=== PATIENT | male | born 1975 | race Caucasian/White ===

== ENCOUNTER 2017-10-08 18:41 | Emergency (ER) | payer OTHER, SELFPAY ==
[2017-10-08 18:41] VITALS: BP 131/70; PULSE 88; RESP 18; TEMP 36.7; O2SAT 97; BMI 42.8
--- NOTE | 2017-10-08 19:05 | CT_ITS ---
STUDY: CT ABDOMEN AND PELVIS WITH CONTRAST REASON FOR EXAM: Male, 42 years old. Right flank pain and partial right nephrectomy for cancer RADIATION DOSAGE (If Supplied By Facility): CTDIvol = ( 20.40 ) mGy, DLP = ( 1372.03 ) mGycm TECHNIQUE: Transaxial images were obtained from the dome of the diaphragm to the symphysis pubis without oral contrast. 100ML ml of Isovue 300 contrast was administered. Sagittal and coronal images were reconstructed. Individualized dose optimization techniques were used for this CT. COMPARISON: January 07, 2017 FINDINGS: The visualized lung bases are unremarkable. The visualized portions of the heart are within normal limits. Normal liver. Normal gallbladder and extrahepatic biliary system. Normal spleen. Normal pancreas. Normal bilateral adrenal glands. Normal right kidney. Normal left kidney. Normal visualized stomach. Normal small intestine. There appears to be stranding of the pericolonic fat near the hepatic flexure. The appendix is visualized and appears normal. Normal abdominal aorta. Normal inferior vena cava. Normal retroperitoneum. Normal urinary bladder. There is a small umbilical hernia containing fat. Normal osseous structures. CT/Abdomen/Pelvis W IV Cont ONLY IMPRESSION: Possible segmental nonspecific acute colitis hepatic flexure Electronically Signed: Johnathon Bright MD at 20:26 EDT , Service support ,
[2017-10-08 19:19] LABS: Bacteria 0 SEEN /hpf (None Seen); Mucous, Urine 0 SEEN /hpf (<or=2+); Red Blood Cells-Urine 0 SEEN /hpf (0-5)
[2017-10-08] MEDS: Ondansetron 4 MG/2 ML Vial IV (19:21)
[2017-10-08] MEDS: Morphine 4 MG/ML Syringe IV (19:21)
[2017-10-08] MEDS: 0.9% Normal Saline 1,000 ML 1000 ML IV (19:21)
[2017-10-08 19:23] LABS: Absolute Lymphocyte Count 3.58 X10^3/ul (0.83-4.51); Absolute Neutrophil Count 6.3 X10^3/uL (2.0-7.7); Basophil# 0.05 X10^3/uL; Basophil% 0.4 % (0-1); Eosinophil# 0.53 X10^3/uL; Eosinophils% 4.7 % (0-5); Hematocrit 46.8 % (40-54); Hemoglobin 16.4 g/dl (13.0-16.5); Lymphocyte # 3.58 X10^3/ul (4.0); Lymphocyte % 31.7 % (19-41); Mean Corpuscular Hgb 31.9 pg (27.0-32.0); Mean Corpuscular Volume 91.1 fL (80-94); Mean Platelet Vol. 10.7 fl (6.2-12.0); Monocyte# 0.79 X10^3/uL; Neutrophil # 6.33 X10^3/uL (2.7-7.7); Neutrophil % 56.1 % (47-70); POSITIVE COUNT NO; POSITIVE DIFFERENTIAL NO; POSITIVE MORPHOLOGY NO; Platelet Count 206 K/mm3 (150-450); RBC Distribution Width CV 13.5 % (11.6-14.6); RBC Distribution Width SD 44.5 fl (35.1-43.9); Red Blood Count 5.14 M/mm3 (4.6-6.2); White Blood Count 11.3 K/mm3 (4.4-11.0)
[2017-10-08 19:26] LABS: Color, Urine Yellow (Yellow); Glucose, Dipstick Normal (Normal); Ketone-Dipstick Negative (Negative); Leukocyte Esterase-Dipstick 25 /ul (Negative); Nitrite-Dipstick Negative (Negative); Occult Blood-Urine 25 /ul (Negative); Protein-Dipstick Negative (Negative); Specific Gravity, Urine 1.025 (1.002-1.030); Urine Bilirubin Dipstick Negative (Negative); Urine Clarity Clear (Clear); Urine Urobilinogen 1 mg/dl (Normal)
[2017-10-08 19:43] LABS: Squamous Epithelial Cells - UA 0-5 SEEN /hpf (0-5); White Blood Cells 0-5 SEEN /hpf (0-5)
[2017-10-08 19:46] LABS: ALB/GLOB Ratio 0.8 RATIO (0.9-2.4); AST(SGOT) 21 U/L (15-37); Alanine Aminotransfer ALT/SGPT 37 U/L (16-61); Albumin, Serum 3.4 g/dL (3.2-5.0); Alkaline Phosphatase 73 U/L (45-117); Anion Gap 7 (5-15); BUN 10 mg/dL (7-18); BUN/Creat Ratio 10.9 RATIO (10-20); Calcium,Total 8.6 mg/dL (8.5-10.1); Chloride 105 mmol/L (98-107); Creatinine, Serum 0.92 mg/dL (0.70-1.30); EST Glomerular Filtration Rate 96 mL/min (>60); Est Glom Filt Rate - Afr Amer 116 mL/min (>60); Globulin 4.1 g/dL (2.2-4.2); Glucose 104 mg/dL (74-106); Potassium 4.2 mmol/L (3.5-5.1); Protein, Total 7.5 g/dL (6.4-8.2); Sodium Level 139 mmol/L (136-145)
--- NOTE | 2017-10-08 20:49 | ED.DCSUM_ITS ---
- ER Visit Summary Date of Service: 10/08/17 Chief Complaint: Flank pain History of Present Illness: The patient is a 42 M who presents with flank pain. It began yesterday. It is sharp in nature. He complains of pain in his kidney area. Pain is nonradiating. He currently rates it as 7 out of 10. He does have a history of renal cell carcinoma with partial nephrectomy on the right. He denies nausea vomiting or diarrhea. He does note urgency but denies dysuria or hematuria. No fevers. Physical Examination: Afebrile vitals are unremarkable Moist mucous membranes Heart regular rate and rhythm Lungs are clear Abdomen soft nontender nondistended He has mild right CVA tenderness Test Results: Labs notable for white blood cell count 11.[address] of the abdomen and pelvis shows stranding of the pericolonic fat near the hepatic flexure concerning for possible colitis. Emergency Department Course and Treatment: Patient does not have diarrhea or fever but he does have fat stranding in a region that could potentially explain his right flank tenderness. Will cover for possible infectious colitis. He does not currently have a primary care physician. He was referred to Dr. Ricardo. He was instructed on specific signs and symptoms to monitor for, conditions under which to return to the emergency department he was discharged home. Treatment Plan: [] Disposition: Discharge Impression: Hepatic flexure colitis This note was generated with [employer] dictation software. It may contain incorrect words, spelling, and punctuation that were not noted in review of the chart prior to signing ED Disposition - Plan for ED Patient: Chief Complaint: Flank Pain Referrals: Care Physician,No Primary [Primary Care Provider] -
--- NOTE | 2017-10-08 20:49 | ED.DEP ---
ED Disposition - Plan for ED Patient: Chief Complaint: Flank Pain Instructions: ED Flank Pain Uncertain Cause Prescriptions: Ciprofloxacin [Cipro] 500 mg PO BID #14 tab Referrals: Care Physician,No Primary [Primary Care Provider] - Ab Ricardo MD [STAFF PHYSICIAN] -
[2017-10-08 21:07] VITALS: BP 119/62; PULSE 70; RESP 16; O2SAT 98
== END 2017-10-08 21:12 | disposition home or self-care (01) ==
PROVIDERS: Emergency Provider Emergency Medicine
DX: K52.9 Noninfective gastroenteritis and colitis, unspecified (principal); J45.909 Unspecified asthma, uncomplicated; Z85.528 Personal history of other malignant neoplasm of kidney; Z90.5 Acquired absence of kidney; Z72.0 Tobacco use
CPT/HCPCS: 74177; 80053; 81001; 85025; 96361; 96374; 96375; 99283; J7030; Q9967; A4216; J2405

== ENCOUNTER 2017-10-26 22:55 | Emergency (ER) | payer OTHER, SELFPAY ==
[2017-10-26 22:57] VITALS: BP 147/78; PULSE 83; RESP 18; TEMP 36.4; O2SAT 97; BMI 43.3
[2017-10-26 23:24] LABS: Absolute Lymphocyte Count 2.96 X10^3/ul (0.83-4.51); Absolute Neutrophil Count 9.8 X10^3/uL (2.0-7.7); Basophil# 0.04 X10^3/uL; Basophil% 0.3 % (0-1); Eosinophil# 0.42 X10^3/uL; Hematocrit 47.8 % (40-54); Hemoglobin 17.3 g/dl (13.0-16.5); Lymphocyte # 2.96 X10^3/ul (4.0); Lymphocyte % 20.8 % (19-41); Mean Corp Hgb Conc 36.2 g/gl (32-36); Mean Corpuscular Volume 91.2 fL (80-94); Monocyte# 1.01 X10^3/uL; Monocyte% 7.1 % (0-10); Neutrophil # 9.78 X10^3/uL (2.7-7.7); Neutrophil % 68.7 % (47-70); Platelet Count 197 K/mm3 (150-450); RBC Distribution Width CV 13.6 % (11.6-14.6); RBC Distribution Width SD 44.9 fl (35.1-43.9); Red Blood Count 5.24 M/mm3 (4.6-6.2); White Blood Count 14.2 K/mm3 (4.4-11.0)
[2017-10-26 23:25] LABS: POSITIVE COUNT NO; POSITIVE DIFFERENTIAL NO; POSITIVE MORPHOLOGY NO
--- NOTE | 2017-10-26 23:26 | ED.DCSUM_ITS ---
- ER Visit Summary Date of Service: 10/26/17 Chief Complaint: Right flank pain History of Present Illness: The patient is a 42 M who presents with right flank pain of about 2-3 days duration. Patient states that he was seen earlier this month with similar symptoms was felt to have a colon infection was placed on antibiotics. (CT done at that time showed a possible focal area of colitis at the hepatic flexure) states that while he was on the antibiotics his symptoms proved. Now they have returned. He denies any diarrhea nausea vomiting. No fevers or chills. No rashes. No shortness of breath or cough. He denies any heavy lifting or potential strain or falls. He notes pain in the right CVA region. He states that in December 2015 he had a partial nephrectomy due to kidney cancer at [facility] [place] he is unsure of the urologist name. He denies any hematuria or urinary frequency or dysuria. Physical Examination: Afebrile vital signs are stable Gen: Well-nourished well-developed obese Head: Normocephalic atraumatic Eyes: Perrl EOMI ENT: TMs clear no rhinorrhea moist mucous membranes Neck: Supple no lymphadenopathy no JVD nontender CVS: Regular rate rhythm no murmurs normal S1-S2 Respiratory: No distress clear to auscultation bilaterally chest nontender Abdomen: Soft nontender nondistended normal bowel sounds no masses Back: Mildly tender palpation in the right CVA area Extremity: Nontender no edema Skin: Normal color no rash Neuro: alert orientated ?3 CN II-XII intact normal strength sensation reflexes gait cerebellar Psych: Normal affect normal mood Test Results: CBC CMP urinalysis lipase were obtained. This showed a leukocytosis of 14.5. CT of the abdomen pelvis with IV contrast was ordered. Emergency Department Course and Treatment: Patient received morphine and Zofran. Care the patient will be assigned to Dr. Dany Cabral for check of CT findings and final disposition. Impression: 1. Right flank pain This note was generated with [employer] dictation software. It may contain incorrect words, spelling, and punctuation that were not noted in review of the chart prior to signing ED Disposition - Plan for ED Patient: Chief Complaint: Flank Pain Referrals: Care Physician,No Primary [Primary Care Provider] -
[2017-10-26] MEDS: Ondansetron 4 MG/2 ML Vial IV (23:28)
[2017-10-26] MEDS: Morphine 4 MG/ML Syringe IV (23:28)
[2017-10-26 23:39] LABS: Bacteria 0 SEEN /hpf (None Seen); Mucous, Urine 0 SEEN /hpf (<or=2+); Red Blood Cells-Urine 0 SEEN /hpf (0-5); Squamous Epithelial Cells - UA 0 SEEN /hpf (0-5); White Blood Cells 0 SEEN /hpf (0-5)
[2017-10-26 23:59] LABS: Color, Urine Yellow (Yellow); Glucose, Dipstick Normal (Normal); Ketone-Dipstick Negative (Negative); Leukocyte Esterase-Dipstick Negative /ul (Negative); Nitrite-Dipstick Negative (Negative); Occult Blood-Urine 10 /ul (Negative); Protein-Dipstick Negative (Negative); Urine Bilirubin Dipstick Negative (Negative); Urine Clarity Clear (Clear); Urine Urobilinogen Normal (Normal); Urine pH 6.5 (5.0 - 8.0)
--- NOTE | 2017-10-27 00:19 | CT_ITS ---
STUDY: CT ABDOMEN AND PELVIS WITH CONTRAST REASON FOR EXAM: Male, 42 years old. Right flank pain RADIATION DOSAGE (If Supplied By Facility): CTDIvol = ( 27.05 ) mGy, DLP = ( 1433.08 ) mGycm TECHNIQUE: Transaxial images were obtained from the dome of the diaphragm to the symphysis pubis without oral contrast. 100ML ml of Isovue 300 contrast was administered. Sagittal and coronal images were reconstructed. Individualized dose optimization techniques were used for this CT. COMPARISON: None. FINDINGS: The visualized lung bases are unremarkable. The visualized portions of the heart are within normal limits. Normal liver. Normal gallbladder and extrahepatic biliary system. Normal spleen. Normal pancreas. Normal bilateral adrenal glands. Postoperative change from partial nephrectomy of the posterior mid right kidney. Normal left kidney. Normal bilateral ureters. Normal visualized stomach. Normal small intestine. Normal colon. The appendix is visualized and appears normal. Normal abdominal aorta. Normal inferior vena cava. Normal retroperitoneum. Normal urinary bladder. Normal abdominal wall. There are diffuse degenerative changes of the visualized lumbar spine. CT/Abdomen/Pelvis W IV Cont ONLY IMPRESSION: No evidence of an acute intra-abdominal abnormality. Electronically Signed: Olegario Schmidt MD at 1:28 EDT Tel , Service support ,
[2017-10-27 00:24] LABS: AST(SGOT) 18 U/L (15-37); Alanine Aminotransfer ALT/SGPT 32 U/L (16-61); Albumin, Serum 3.4 g/dL (3.2-5.0); Alkaline Phosphatase 65 U/L (45-117); Anion Gap 4 (5-15); BUN 10 mg/dL (7-18); Bilirubin, Direct 0.14 mg/dL (0.00-0.30); Calcium,Total 8.8 mg/dL (8.5-10.1); Chloride 107 mmol/L (98-107); Creatinine, Serum 0.83 mg/dL (0.70-1.30); EST Glomerular Filtration Rate 107 mL/min (>60); Est Glom Filt Rate - Afr Amer 129 mL/min (>60); Estimated Creatinine Clearance 129.69 ml/min; Glucose 97 mg/dL (74-106); Lipase 68 U/L (73-393); Potassium 4.4 mmol/L (3.5-5.1); Protein, Total 7.4 g/dL (6.4-8.2); Sodium Level 139 mmol/L (136-145)
--- NOTE | 2017-10-27 02:08 | ED.DEP ---
ED Disposition - Plan for ED Patient: Disposition: Home or Assisted Living Chief Complaint: Flank Pain Instructions: ED Flank Pain Uncertain Cause Referrals: Care Physician,No Primary [Primary Care Provider] - As Needed Jose Cruz Rousseau MD [STAFF PHYSICIAN] - As Needed Additional Instructions: Your labs and CAT scan today were unremarkable. There was no specific finding that was consistent with your pain. Use Tylenol Motrin for pain. Follow-up with either your primary care physician or Dr. Everette Rousseau as needed.
[2017-10-27 02:14] VITALS: BP 142/60; PULSE 74; RESP 18; O2SAT 96
== END 2017-10-27 02:15 | disposition home or self-care (01) ==
PROVIDERS: Emergency Provider Emergency Medicine
DX: R10.9 Unspecified abdominal pain (principal); M54.9 Dorsalgia, unspecified; Z90.5 Acquired absence of kidney; Z85.528 Personal history of other malignant neoplasm of kidney; Z72.0 Tobacco use
CPT/HCPCS: 74177; 80048; 80076; 81001; 83690; 85025; 96374; 96375; 99283; Q9967; A4216; J2405

== ENCOUNTER 2018-01-14 21:11 | Emergency (ER) | payer OTHER, SELFPAY ==
[2018-01-14 21:12] VITALS: BP 135/70; PULSE 94; RESP 16; TEMP 36.6; O2SAT 99; BMI 44.0
--- NOTE | 2018-01-14 21:46 | US_ITS ---
STUDY: VENOUS DOPPLER ULTRASOUND - LEFT LOWER EXTREMITY REASON FOR EXAM: Male, 42 years old. Swelling TECHNIQUE: Ultrasound evaluation of the deep vein system to include de paz-scale imaging and compression was performed. De Paz-scale imaging and Doppler sonographic evaluation, including duplex spectral analysis and qualitative color flow sonography, was performed. COMPARISON: None. FINDINGS: Common Femoral Vein: Normal compression, spontaneity and augmentation. Normal color Doppler. Common Femoral Vein/Greater Saphenous Junction: Normal compression, spontaneity and augmentation. Normal color Doppler. Deep Femoral Vein: Normal compression, spontaneity and augmentation. Normal color Doppler. Femoral Proximal: Normal compression, spontaneity and augmentation. Normal color Doppler. Femoral Middle: Normal compression, spontaneity and augmentation. Normal color Doppler. Femoral Distal: Normal compression, spontaneity and augmentation. Normal color Doppler. Popliteal Vein: Normal compression, spontaneity and augmentation. Normal color Doppler. Posterior Tibial Vein: Normal compression, spontaneity and augmentation. Normal color Doppler. Peroneal Vein: Normal compression, spontaneity and augmentation. Normal color Doppler. US/Venous Duplex Imag/Limited/Uni IMPRESSION: Normal venous Doppler ultrasound of the lower extremity. Electronically Signed: Dany Stephen MD at 22:15 EDT , Service support ,
--- NOTE | 2018-01-14 22:50 | ED.DEP ---
ED Disposition - Plan for ED Patient: Chief Complaint: Lower Extremity Injury Instructions: ED Plantar Fasciitis Prescriptions: Naproxen [Naprosyn] 500 mg PO BID PRN #20 tablet Referrals: Care Physician,Mandy Primary [Primary Care Provider] - Dany Gallegos DPM [STAFF PHYSICIAN] -
--- NOTE | 2018-01-14 22:55 | ED.DCSUM_ITS ---
- ER Visit Summary Date of Service: 01/14/18 Chief Complaint: Left foot pain History of Present Illness: The patient is a 42 M presenting with left foot pain. He states this began about a week ago. He has pain to the bottom of his left foot that radiates up his left calf. He denies any injury. He stands frequently at work and wears work boots. Denies other complaints. Physical Examination: Vitals are stable. Patient is afebrile. Alert no acute distress. HEENT exam is unremarkable. Neck is supple. Lungs are clear and equal bilaterally. Heart is regular rate and rhythm. Extremities tenderness plantar surface left foot. No erythema or warmth. Mild calf tenderness. Normal pulse. Skin is warm and dry. No focal neurologic deficit. Remainder of exam is unremarkable. Emergency Department Course and Treatment: Ultrasound left lower extremity shows no evidence of DVT. Patient was given Naprosyn. He is advised this is likely plantar fasciitis. He is advised to use shoe inserts. Advised to follow-up with podiatry. Advised return to ED if worsening complaints. Disposition: Discharge home Impression: Plantar fasciitis This note was generated with [employer] dictation software. It may contain incorrect words, spelling, and punctuation that were not noted in review of the chart prior to signing ED Disposition - Plan for ED Patient: Chief Complaint: Lower Extremity Injury Instructions: ED Plantar Fasciitis Prescriptions: Naproxen [Naprosyn] 500 mg PO BID PRN #20 tablet Referrals: Dany Gallegos DPM [STAFF PHYSICIAN] - Care Physician,No Primary [Primary Care Provider] -
[2018-01-14] MEDS: Naproxen 500 MG Tablet PO (23:06)
== END 2018-01-14 23:09 | disposition home or self-care (01) ==
LOC: ED 22:03
PROVIDERS: Emergency Provider Emergency Medicine
DX: M72.2 Plantar fascial fibromatosis (principal); Z72.0 Tobacco use
CPT/HCPCS: 93971; 99283

== ENCOUNTER 2018-04-01 19:18 | Emergency (ER) | payer OTHER, SELFPAY ==
[2018-04-01 19:19] VITALS: BP 157/79; PULSE 89; PULSE 90; RESP 17; RESP 18; TEMP 36.5; O2SAT 97; BMI 46.2
[2018-04-01 20:01] LABS: Bacteria 0 SEEN /hpf (None Seen); Mucous, Urine 0 SEEN /hpf (<or=2+); Red Blood Cells-Urine 0 SEEN /hpf (0-5); Squamous Epithelial Cells - UA 0 SEEN /hpf (0-5); White Blood Cells 0 SEEN /hpf (0-5)
[2018-04-01 20:05] LABS: Color, Urine Yellow (Yellow); Glucose, Dipstick Normal (Normal); Ketone-Dipstick Negative (Negative); Leukocyte Esterase-Dipstick Negative /ul (Negative); Nitrite-Dipstick Negative (Negative); Occult Blood-Urine 10 /ul (Negative); Protein-Dipstick Negative (Negative); Specific Gravity, Urine 1.025 (1.002-1.030); Urine Bilirubin Dipstick Negative (Negative); Urine Clarity Clear (Clear); Urine Urobilinogen 1 mg/dl (Normal)
[2018-04-01 20:47] LABS: Anion Gap 7 (5-15); BUN 10 mg/dL (7-18); BUN/Creat Ratio 10.5 RATIO (10-20); Calcium,Total 8.9 mg/dL (8.5-10.1); Chloride 105 mmol/L (98-107); Creatinine, Serum 0.95 mg/dL (0.70-1.30); EST Glomerular Filtration Rate 91 mL/min (>60); Est Glom Filt Rate - Afr Amer 110 mL/min (>60); Estimated Creatinine Clearance 113.31 ml/min; Glucose 114 mg/dL (74-106); Sodium Level 140 mmol/L (136-145)
[2018-04-01 21:11] LABS: Absolute Lymphocyte Count 3.23 X10^3/ul (0.83-4.51); Absolute Neutrophil Count 7.6 X10^3/uL (2.0-7.7); Basophil# 0.06 X10^3/uL; Basophil% 0.5 % (0-1); Hematocrit 45.8 % (40-54); Hemoglobin 16.5 g/dl (13.0-16.5); Lymphocyte # 3.23 X10^3/ul (4.0); Lymphocyte % 25.8 % (19-41); Mean Corpuscular Hgb 33.1 pg (27.0-32.0); Mean Corpuscular Volume 91.8 fL (80-94); Mean Platelet Vol. 11.2 fl (6.2-12.0); Monocyte# 1.06 X10^3/uL; Monocyte% 8.5 % (0-10); Neutrophil # 7.62 X10^3/uL (2.7-7.7); Neutrophil % 60.9 % (47-70); Platelet Count 218 K/mm3 (150-450); RBC Distribution Width CV 13.2 % (11.6-14.6); RBC Distribution Width SD 43.7 fl (35.1-43.9); Red Blood Count 4.99 M/mm3 (4.6-6.2); White Blood Count 12.5 K/mm3 (4.4-11.0)
[2018-04-01 21:14] LABS: POSITIVE COUNT NO; POSITIVE DIFFERENTIAL NO; POSITIVE MORPHOLOGY NO
--- NOTE | 2018-04-01 21:25 | CT_ITS ---
STUDY: CT ABDOMEN AND PELVIS WITHOUT CONTRAST REASON FOR EXAM: Male, 42 years old. Left-sided flank pain. History of prior right nephrectomy secondary to cancer. RADIATION DOSAGE (If Supplied By Facility): CTDIvol = ( 32.59 ) mGy, DLP = ( 1987.03 ) mGycm TECHNIQUE: Transaxial images were obtained from the dome of the diaphragm to the symphysis pubis without oral contrast, and without intravenous contrast. Sagittal and coronal images were reconstructed. Individualized dose optimization techniques were used for this CT. COMPARISON: Prior abdomen and pelvic CT exam of October 27, 2017 FINDINGS: The visualized lung bases are unremarkable. The visualized portions of the heart are within normal limits. Normal liver. Normal gallbladder and extrahepatic biliary system. Normal spleen. Normal pancreas. Normal bilateral adrenal glands. Stable appearance of the right kidney status post a limited right nephrectomy. Negative for hydronephrosis or stones. Normal left kidney without hydronephrosis or stones. Normal visualized stomach. Normal small intestine. Normal colon. The appendix is visualized and appears normal. Normal abdominal aorta. Normal inferior vena cava. Normal retroperitoneum. Normal urinary bladder. Minimal fatty umbilical hernia. Mild degenerative changes of the lumbar spine. CT/Abdomen/Pelvis without Cont IMPRESSION: No acute abdominal or pelvic findings or changes. Status post a very limited right nephrectomy. The remaining kidney is unremarkable with no hydronephrosis or stones. Normal left kidney without hydronephrosis or stones. Unremarkable urinary bladder. No acute bowel related findings. Negative for evidence of obstruction, perforation or inflammatory bowel changes. A normal appendix is identified. Unremarkable liver, spleen, gallbladder and pancreas. Electronically Signed: Sita Yen MD at 22:26 EST , Service support ,
[2018-04-01] MEDS: Ondansetron 4 MG/2 ML Vial IV ×2 (22:09→23:18)
[2018-04-01] MEDS: Ketorolac 30 MG/ML Syringe IV (22:09)
[2018-04-01] MEDS: Morphine 4 MG/ML Syringe IV ×2 (22:09→23:18)
[2018-04-01] MEDS: 0.9% Normal Saline 1,000 ML 150 ML IV (22:09)
[2018-04-01 22:18] VITALS: BP 117/71; PULSE 71; RESP 16; O2SAT 96
--- NOTE | 2018-04-01 22:26 | US_ITS ---
STUDY: SCROTUM ULTRASOUND REASON FOR EXAM: Male, 42 years old. Left testicular pain TECHNIQUE: Ultrasound evaluation of the scrotum was performed with color Doppler and static malhotra-scale imaging. COMPARISON: None. FINDINGS: RIGHT TESTICLE INTRATESTICULAR: There is a normal size of the right testicle. The right testicle measures 4.4 x 3.1 x 2.2 cm. There is a homogenous echotexture. There is normal arterial and normal venous vascularity. There is no demonstrated right testicular mass or cyst. EXTRATESTICULAR: The epididymis is normal in size. The epididymis head measures 1.2 x 0.9 x 0.5 cm. There is normal vascularity of the epididymis. There is a 3 mm epididymal cyst. There is no demonstrated hydrocele. There is no demonstrated varicocele. There is no demonstrated extratesticular mass or cyst. LEFT TESTICLE INTRATESTICULAR: There is a normal size of the left testicle. The left testicle measures 4.5 x 3.0 x 1.9 cm. There is a homogenous echotexture. There is normal arterial and normal venous vascularity. There is an area of slight heterogeneity. Focal orchitis cannot be excluded. EXTRATESTICULAR: The epididymis is normal in size. The epididymis head measures 1.1 x 0.7 x 0.7 cm. There is normal vascularity of the epididymis. There is no demonstrated epididymal cystic structure. There is a small hydrocele. There is no demonstrated varicocele. There is no demonstrated extratesticular mass or cyst. US/Testicular with Arterial Flow IMPRESSION: No testicular torsion. Focal heterogeneous area of the left testicle. Focal orchitis cannot be excluded. Small left hydrocele. Right epididymal cyst. Electronically Signed: Alen Garcia DO at 0:00 EST Tel [phone], Service support ,
--- NOTE | 2018-04-02 00:16 | ED.DCSUM_ITS ---
- ER Visit Summary Date of Service: 04/02/18 Chief Complaint: Left flank pain History of Present Illness: The patient is a 42 M with left flank pain left testicle pain that progressively worsened throughout the day today. He denies any injury. He denies dysuria or hematuria. Patient has a history of renal cancer and partial right nephrectomy. He has no history of kidney stones. Physical Examination: Vital signs unremarkable. Patient's lying in bed no acute distress. Head and neck examination unremarkable. Heart is regular rate and rhythm. Lung sounds are clear. Abdomen is soft, obese, nontender. examination was tenderness to the left testicle. There is no significant sc rotal edema or erythema. No probable masses are noted. Back examination does reveal left CVA tenderness. Test Results: CBC was a white count 12.5 with unremarkable differential. Chemistry studies normal. Urinalysis unremarkable. CT flank shows no acute findings. Testicular ultrasound shows no testicular torsion. There is focal heterogeneous area noted to the left testicle and focal orchitis cannot be ruled out. There is evidence of a small left hydrocele. Right epididymal cyst is noted. Emergency Department Course and Treatment: Patient was given Toradol, morphine, Zofran, and IV fluids. Following ultrasound he did require a second dose of morphine. Test results are discussed with patient and at bedside. With the patient having left testicular tenderness on exam along with probable orchitis on ultrasound, he will be treated with Levaquin, first dose given here. He will follow-up with his urologist in [place]. Treatment Plan: [] Disposition: Discharge Impression: Orchitis left testicle This note was generated with [employer] dictation software. It may contain incorrect words, spelling, and punctuation that were not noted in review of the chart prior to signing ED Disposition - Plan for ED Patient: Disposition: Home or Assisted Living Chief Complaint: Flank Pain Instructions: ED Orchitis Prescriptions: Hydrocodone Bitart/Apap 5-325 [[place] 5MG-325MG] 1 tablet PO Q6H PRN PRN 3 Days #10 tablet PRN Reason: Pain Levofloxacin [Levaquin] 500 mg PO DAILY #10 tablet Additional Instructions: Follow-up with your urologist in [place]
[2018-04-02] MEDS: levoFLOXacin 500 MG Tablet PO (00:36)
[2018-04-02] MEDS: HYDROcodone Bitartrate/Apap 5/325 Tablet PO (00:36)
[2018-04-02 00:41] VITALS: BP 123/69; PULSE 75; RESP 17; O2SAT 97
== END 2018-04-02 00:43 | disposition home or self-care (01) ==
PROVIDERS: Emergency Provider Emergency Medicine
DX: N45.2 Orchitis (principal); N50.3 Cyst of epididymis; E66.9 Obesity, unspecified; J45.909 Unspecified asthma, uncomplicated; Z85.528 Personal history of other malignant neoplasm of kidney; Z90.5 Acquired absence of kidney; Z72.0 Tobacco use
CPT/HCPCS: 74176; 76870; 80048; 81001; 85025; 93976; 96361; 96374; 96375; 96376; 99284; J7030; A4216; J2405

== ENCOUNTER 2018-04-03 09:24 | Emergency (ER) | payer OTHER, SELFPAY ==
[2018-04-03 09:25] VITALS: PULSE 106; RESP 16; TEMP 36.4; O2SAT 100; BMI 45.5
--- NOTE | 2018-04-03 09:44 | US_ITS ---
STUDY: SCROTUM ULTRASOUND REASON FOR EXAM: Male, 42 years old. Pain/tenderness of the left testicle. TECHNIQUE: Ultrasound evaluation of the scrotum was performed with color Doppler and static malhotra-scale imaging. COMPARISON: Comparison is made with prior study dated April 01, 2018. FINDINGS: RIGHT TESTICLE INTRATESTICULAR: There is a normal size of the right testicle. The right testicle measures 4.5 cm x 2.8 cm x 2.3 cm. There is a homogenous echotexture. There is normal arterial and normal venous vascularity. There is no demonstrated right testicular mass or cyst. EXTRATESTICULAR: The epididymis is normal in size. The epididymis head measures 1.4 cm x 1.8 cm x 1.1 cm. There is normal vascularity of the epididymis. There is no demonstrated epididymal cystic structure. There is no demonstrated hydrocele. There is no demonstrated varicocele. There is no demonstrated extratesticular mass or cyst. LEFT TESTICLE INTRATESTICULAR: There is a normal size of the left testicle. The left testicle measures 4.3 cm x 2.95 x 2.6 cm. There is a homogenous echotexture. There is normal arterial and normal venous vascularity. There is a 1.6 cm x 1.7 cm x 1.2 cm inhomogeneous hypoechoic mass in the superior pole of the left testicle. There is increased vascularity. A neoplastic process should be ruled out. EXTRATESTICULAR: The epididymis is normal in size. The epididymis head measures 1.6 cm x 1.7 cm x 1.8 cm. There is normal vascularity of the epididymis. There is no demonstrated epididymal cystic structure. There is a small hydrocele. There is no demonstrated varicocele. There is no demonstrated extratesticular mass or cyst. US/Testicular with Arterial Flow IMPRESSION: 1.6 cm x 1.7 cm x 1.8 cm homogeneous hypoechoic mass in the superior pole of the left testicle with a small left hydrocele. A neoplastic process should be ruled out. Electronically Signed: Efraín Titus MD at 12:26 EST Tel [phone], Service support ,
--- NOTE | 2018-04-03 09:46 | ED.VISSUMM ---
- ER Visit Summary Date of Service: 04/03/18 Chief Complaint: Left testicle pain History of Present Illness: The patient is a 42 M who sees a urologist in a [place] whose name he cannot remember. He has seen them since having a partial right nephrectomy. States that 2 days ago he had the abrupt onset of left testicle pain that he described as sharp. It is a continuous pain is 10 at 10 worsening a 10 currently. Is worsened by nothing and relieved by nothing. States that he initially had flank pain, but did not think much of that because he does have episodes of back pain. Reports that pain seems to come and go now. 7 out of 10 at worst and 2 out of 10 currently. He has had this kind of pain previously. He has never had kidney stones. Patient denies any discharge from his penis. He has no concern for exposure to an STD. He denies fever, chills, dysuria, hematuria, frequency, abdominal pain, nausea, vomiting, or diarrhea. Physical Examination: Vitals: Stable. Afebrile. General: Well-nourished and well-developed. Head: Normocephalic atraumatic. Neck: Supple, no lymphadenopathy. No JVD. Nontender. Cardiovascular: Regular rate and rhythm. No murmurs. Respiratory: No respiratory distress. Clear to auscultation bilaterally. Abdominal: Soft, nontender, nondistended, normal bowel sounds. No guarding, rebound, or peritoneal signs. : Normal circumcised male. Right testicle and epididymis are nontender. Diffuse tenderness palpation over the left testicle and the left epididymis. He does not have any hernias. He was examined while standing. Back: Nontender. Extremities: Nontender, no edema. Skin: Normal color, no rash. Neurologic: Alert and oriented ?3. Cranial nerves II through XII are intact. Normal strength and sensation. Psych: Normal affect. Test Results: I reviewed the workup that he had 2 days ago. At that time he had a CT of the flank that was negative. He reports that his back pain is actually improving. I do not think it is worth exposing him to the radiation of this again. He also had a urinalysis that was normal. He had a testicular ultrasound that showed good flow. However, there was question of focal orchitis. I repeated the ultrasound to make sure that he does not have an intermittent torsion Clinical Impression(s) from Imaging Studies Testicular Ultrasound 04/03/18 09:44 IMPRESSION: 1.6 cm x 1.7 cm x 1.8 cm homogeneous hypoechoic mass in the superior pole of the left testicle with a small left hydrocele. A neoplastic process should be ruled out. Electronically Signed: Efraín Titus MD at 12:26 EST Tel [phone], Service support , Emergency Department Course and Treatment: Patient was treated with morphine and Toradol IM. He is resting comfortably. Treatment Plan: Patient already has Levaquin at home. He will be given a prescription for 10 more Shannon. He will also have naproxen added. The ultrasound and patient were discussed with Dr. Meyer. He reviewed the ultrasound does state that this looks concerning for a mass. He would like the patient to follow-up with him in a week for further evaluation and treatment. This was discussed with the patient.. Return to the emergency department for any worsening symptoms. Disposition: To home in improved and stable condition. Impression: 1. Left testicular mass. This note was generated with [employer] dictation software. It may contain incorrect words, spelling, and punctuation that were not noted in review of the chart prior to signing ED Disposition - Plan for ED Patient: Disposition: Home or Assisted Living Chief Complaint: Flank Pain Instructions: ED Orchitis Prescriptions: Hydrocodone Bitart/Apap 5-325 [[place] 5MG-325MG] 1 tablet PO Q4H PRN PRN 2 Days #10 tablet PRN Reason: Pain Naproxen [Naprosyn] 500 mg PO BID #20 tablet Referrals: Care Physician,No Primary [Primary Care Provider] - Additional Instructions: Wear supportive undergarments. Ice the area to help with pain. Follow up with your Urologist in 1 week for another exam.
--- NOTE | 2018-04-03 09:50 | ED.DCSUM_ITS ---
- ER Visit Summary Date of Service: 04/03/18 Chief Complaint: Left testicle pain History of Present Illness: The patient is a 42 M who sees a urologist in a diner whose name he cannot remember. He has seen them since having a partial right nephrectomy. States that 2 days ago he had the abrupt onset of left testicle pain that he described as sharp. It is a continuous pain is 10 at 10 worsening a 10 currently. Is worsened by nothing and relieved by nothing. States that he initially had flank pain, but did not think much of that because he does have episodes of back pain. Reports that pain seems to come and go now. 7 out of 10 at worst and 2 out of 10 currently. He has had this kind of pain previously. He has never had kidney stones. Patient denies any discharge from his penis. He has no concern for exposure to an STD. He denies fever, chills, dysuria, hematuria, frequency, abdominal pain, nausea, vomiting, or diarrhea. Physical Examination: Vitals: Stable. Afebrile. General: Well-nourished and well-developed. Head: Normocephalic atraumatic. Neck: Supple, no lymphadenopathy. No JVD. Nontender. Cardiovascular: Regular rate and rhythm. No murmurs. Respiratory: No respiratory distress. Clear to auscultation bilaterally. Abdominal: Soft, nontender, nondistended, normal bowel sounds. No guarding, rebound, or peritoneal signs. : Normal circumcised male. Right testicle and epididymis are nontender. Diffuse tenderness palpation over the left testicle and the left epididymis. He does not have any hernias. He was examined while standing. Back: Nontender. Extremities: Nontender, no edema. Skin: Normal color, no rash. Neurologic: Alert and oriented ?3. Cranial nerves II through XII are intact. Normal strength and sensation. Psych: Normal affect. Test Results: I reviewed the workup that he had 2 days ago. At that time he had a CT of the flank that was negative. He reports that his back pain is actually improving. I do not think it is worth exposing him to the radiation of this again. He also had a urinalysis that was normal. He had a testicular ultrasound that showed good flow. However, there was question of focal orchitis. I repeated the ultrasound to make sure that he does not have an intermittent torsion Clinical Impression(s) from Imaging Studies Testicular Ultrasound 04/03/18 09:44 IMPRESSION: 1.6 cm x 1.7 cm x 1.8 cm homogeneous hypoechoic mass in the superior pole of the left testicle with a small left hydrocele. A neoplastic process should be ruled out. Electronically Signed: Efraín Titus MD at 12:26 EST Tel [phone], Service support , Emergency Department Course and Treatment: Patient was treated with morphine and Toradol IM. He is resting comfortably. Treatment Plan: Patient already has Levaquin at home. He will be given a prescription for 10 more Yale. He will also have naproxen added. The ultrasound and patient were discussed with Dr. Meyer. He reviewed the ultrasound does state that this looks concerning for a mass. He would like the patient to follow-up with him in a week for further evaluation and treatment. This was discussed with the patient.. Return to the emergency department for any worsening symptoms. Disposition: To home in improved and stable condition. Impression: 1. Left testicular mass. This note was generated with [employer] dictation software. It may contain incorrect words, spelling, and punctuation that were not noted in review of the chart prior to signing ED Disposition - Plan for ED Patient: Disposition: Home or Assisted Living Chief Complaint: Flank Pain Instructions: ED Orchitis Prescriptions: Hydrocodone Bitart/Apap 5-325 [Yale 5MG-325MG] 1 tablet PO Q4H PRN PRN 2 Days #10 tablet PRN Reason: Pain Naproxen [Naprosyn] 500 mg PO BID #20 tablet Referrals: Care Physician,No Primary [Primary Care Provider] - Additional Instructions: Wear supportive undergarments. Ice the area to help with pain. Follow up with your Urologist in 1 week for another exam.
[2018-04-03] MEDS: Ondansetron ODT 4 MG Tablet PO (09:57)
[2018-04-03] MEDS: Ketorolac 60 MG/2 ML Vial IM (09:58)
[2018-04-03] MEDS: morphine 8 MG/ML Syringe IM (09:59)
[2018-04-03 10:06] VITALS: BP 122/82; PULSE 83; RESP 16; O2SAT 97
[2018-04-03 13:24] VITALS: BP 125/64; PULSE 84; RESP 16; TEMP 36.4; O2SAT 96
== END 2018-04-03 13:29 | disposition home or self-care (01) ==
PROVIDERS: Emergency Provider Emergency Medicine
DX: N50.89 Other specified disorders of the male genital organs (principal); N43.3 Hydrocele, unspecified; J45.909 Unspecified asthma, uncomplicated; Z90.5 Acquired absence of kidney; F17.200 Nicotine dependence, unspecified, uncomplicated
CPT/HCPCS: 76870; 93976; 96372; 99283

== ENCOUNTER → 2018-04-07 08:30 | Outpatient (CLI) | payer OTHER, SELFPAY ==
[2018-04-03 09:25] VITALS: BMI 45.5
[2018-04-07 10:47] LABS: LDH 151 U/L (87-241)
[2018-04-08 10:56] LABS: AFP, Tumor Marker 2.3 ng/mL (0.0-8.3)
[2018-04-08 11:10] LABS: HCG BETA-SUBUNIT QUANT. < 1 mIU/mL (0-3)
== END ==
LOC: LAB 08:33
PROVIDERS: Referring Provider Urology; Visit Provider Urology
DX: N50.9 Disorder of male genital organs, unspecified (principal)
CPT/HCPCS: 36415; 82105; 83615; 84702

== ENCOUNTER → 2018-04-20 09:22 | Outpatient (CLI) | payer OTHER, SELFPAY ==
[2018-04-03 09:25] VITALS: BMI 45.5
--- NOTE | 2018-04-20 09:27 | US_ITS ---
HISTORY: F/U ULTRASOUNDS DONE 04/01/18 AND [id number] MASS TECHNIQUE: Realtime ultrasound of the testicles was performed with grayscale, Color Doppler and spectral Doppler analysis. COMPARISON: Scrotal ultrasound 04/03/2018 and 04/01/2018 FINDINGS: Repeat scrotal ultrasound performed following antibiotic therapy. Previous ultrasound findings show no significant change. The upper pole of the left testicle shows a persistent mass-like structure which is hypoechoic, complex, and poorly marginated. This area appears stable in size measuring approximately 1.6 x 1.7 x 1.2 cm and shows an element of vascular flow. No new lesion. The right testicle measures approximately 4.8 x 2.7 x 2.5 cm and the left testicle 4.4 x 2.8 x 2.3 cm. Bilateral testicular blood flow without torsion. Right epididymal head small cyst, unchanged. No suspicious epididymal enlargement. No varicocele or hydrocele. US/Testicular with Arterial Flow IMPRESSION: 1. Following antibiotic therapy, the previously seen left testicular lesion persists without significant change. Testicular neoplasm should be excluded. 2. No new lesion. at 0626 Reported and signed by: Herminio Orourke MD Electronically Signed: Herminio Orourke, at 6:25 EST Tel , Service support ,
--- OUTSIDE RECORDS SUMMARY | 2018-06-22 16:21 | XMS RPT_ITS ---
:1975 Author Organization OH[employer] Support Name Relationship Address Phone [employer] Unavailable [address] + [place] [address] LAYA, PAULA Unavailable [address] + [place] [address] [employer] Unavailable [address] + [place] [address] LAYA, PAULA Unavailable [address] + [place] [address] [employer] Unavailable [address] + [place] [address] LAYA, PAULA Unavailable [address] + [place] [address] [employer] Unavailable [address] + [place] [address] LAYA, PAULA Unavailable [address] + [place] [address] [employer] Unavailable [address] + [place] [address] LAYA, PAULA Unavailable [address] + [place] [address] LAYA, PAULA Unavailable [address] + [place] [address] LAYA, PAULA Unavailable [address] + [place] [address] [employer] Unavailable [address] + [place] [address] LAYA, PAULA Unavailable [address] + [place] [address] [employer] Unavailable [address] + [place] . LAYA, PAULA Unavailable [address] + [place] [address] Care Team Providers Name Role Phone DURBIN GALLO SUN Attending Unavailable PHYSICIAN, NONE Primary Care Unavailable Primay Care Physicia, No Primary Care Unavailable Ailyn García Attending Unavailable Primay Care Physicia, No Primary Care Unavailable Rod Coe Attending Unavailable Colin Meyer Attending Unavailable Betsy, Colin Cassidy Referring Unavailable Primay Care Physicia, No Primary Care Unavailable Betsy, Colin Cassidy Attending Unavailable Betsy, Amandeep Referring Unavailable Primay Care Physicia, No Primary Care Unavailable Primay Care Physicia, No Primary Care Unavailable Nick Peace Attending Unavailable Primay Care Physicia, No Primary Care Unavailable Donnell Carrasco Attending Unavailable Primay Care Physicia, No Primary Care Unavailable Anna Amos Attending Unavailable PROBLEMS PROBLEMS DATE TYPE CONDITION / CODE ATTENDING STATUS SOURCE 04/03/2018 Unknown N45.2 - Orchitis Rod Coe Active [place] / N45.2(ICD-10) [facility] [place] [facility] PROCEDURES PROCEDURES No Procedure Records FoundRESULTS RESULTS TESTICULAR WITH Observed: 04/20/2018 Status: F Source: RASHAUN ARTERIAL FLOW 9:27 AM [facility] REPOSITORY [facility] Imaging Services [address] [place] [address] Testicular with Arterial Flow MR#: [id number] Acct: [id number] Name: DONNELL ADAMS Rep #: [id number] : 1975 M 42 From: Herminio Orourke MD PCP: Care Physician, No Primary Status: REG CLI Study: Testicular with Arterial Flow Date of Exam: 04/20/18 Exam# [id number] Ordering Dr: Colin Meyer MD HISTORY: F/U ULTRASOUNDS DONE 04/01/18 AND [id number] MASS TECHNIQUE: Realtime ultrasound of the testicles was performed with grayscale, Color Doppler and spectral Doppler analysis. COMPARISON: Scrotal ultrasound 04/03/2018 and 04/01/2018 FINDINGS: Repeat scrotal ultrasound performed following antibiotic therapy. Previous ultrasound findings show no significant change. The upper pole of the left testicle shows a persistent mass- like structure which is hypoechoic, complex, and poorly marginated. This area appears stable in size measuring approximately 1.6 x 1.7 x 1.2 cm and shows an element of vascular flow. No new lesion. The right testicle measures approximately 4.8 x 2.7 x 2.5 cm and the left testicle 4.4 x 2.8 x 2.3 cm. Bilateral testicular blood flow without torsion. Right epididymal head small cyst, unchanged. No suspicious epididymal enlargement. No varicocele or hydrocele. US/Testicular with Arterial Flow IMPRESSION: 1. Following antibiotic therapy, the previously seen left testicular lesion persists without significant change. Testicular neoplasm should be excluded. 2. No new lesion. at 0626 Reported and signed by: Herminio Orourke MD Electronically Signed: Herminio Orourke, at 6:25 EST Tel , Service support , CC: No Primary Care Physician; Colin Meyer MD Assistant Credit Manager: Signed LDH Collected: 04/07/2018 Status: F Source: ANGORA 8:36 AM [facility] REPOSITORY Order Comment: Serial Specimen #1, #2 or #3? 1 TYPE CODE TESTS RESULT OUT OF RANGE REFERENCE UNITS LAB L504.2610 87-241 U/L Normal LDH 151 Performed By: #### L504.2610 #### [facility] [address] [place], [place], [address] AFP, TUMOR MARKER Collected: 04/07/2018 Status: F Source: ANGORA 8:36 AM [facility] REPOSITORY Order Comment: Is Patient ? N TYPE CODE TESTS RESULT OUT OF RANGE REFERENCE UNITS LAB L3300.0700 0.0-8.3 ng/mL Normal AFP TUMOR 2.3 2253 Result Comment: [employer] Electrochemiluminescence Immunoassay (ECLIA) Values obtained with different assay methods or kits cannot be used interchangeably. Results cannot be interpreted as absolute evidence of the presence or absence of malignant disease. This test is not interpretable in females. Performed at: [address] [id number] [employer] Worker: Solomon Alonzo PhD, Phone: [phone] Performed By: #### L3300.0700 #### [facility] (refer to report for specific site) refer to report for address and phone number HCG BETA-SUBUNIT QUANT. Collected: 04/07/2018 Status: F Source: ANGORA 8:36 AM [facility] REPOS[facility] TYPE CODE TESTS RESULT OUT OF RANGE REFERENCE UNITS LAB L3100.5140 0-3 mIU/mL Normal HCG < 1 B-SUBUNIT Result Comment: [facility] ECLIA methodology Performed at: - [facility] [id number] [employer] Worker: Solomon Alonzo PhD, Phone: [phone] Performed By: #### L3100.5140 #### [facility] (refer to report for specific site) refer to report for address and phone number EMERGENCY DEPARTMENT Observed: 04/03/2018 Status: F Source: RASHAUN SUMMARY 5:26 PM [facility] REPOSITORY [facility] Medical Records Department [address] [place] [address] Emergency Department Summary 04/03/18 0946 MR#: [id number] Acct: [id number] Name: DONNELL ADAMS Rep #: [id number] : 1975 42 From: Rod Coe MD PCP: Care Physician, No Primary Status: DEP ER - ER Visit Summary Date of Service: 04/03/18 Chief Complaint: Left testicle pain History of Present Illness: The patient is a 42 M who sees a urologist [place] whose name he cannot remember. He has seen them since having a partial right nephrectomy. States that 2 days ago he had the abrupt onset of left testicle pain that he described as sharp. It is a continuous pain is 10 at 10 worsening a 10 currently. Is worsened by nothing and relieved by nothing. States that he initially had flank pain, but did not think much of that because he does have episodes of back pain. Reports that pain seems to come and go now. 7 out of 10 at worst and 2 out of 10 currently. He has had this kind of pain previously. He has never had kidney stones. Patient denies any discharge from his penis. He has no concern for exposure to an STD. He denies fever, chills, dysuria, hematuria, frequency, abdominal pain, nausea, vomiting, or diarrhea. Physical Examination: Vitals: Stable. Afebrile. General: Well-nourished and well-developed. Head: Normocephalic atraumatic. Neck: Supple, no lymphadenopathy. No JVD. Nontender. Cardiovascular: Regular rate and rhythm. No murmurs. Respiratory: No respiratory distress. Clear to auscultation bilaterally. Abdominal: Soft, nontender, nondistended, normal bowel sounds. No guarding, rebound, or peritoneal signs. : Normal circumcised male. Right testicle and epididymis are nontender. Diffuse tenderness palpation over the left testicle and the left epididymis. He does not have any hernias. He was examined while standing. Back: Nontender. Extremities: Nontender, no edema. Skin: Normal color, no rash. Neurologic: Alert and oriented 3. Cranial nerves II through XII are intact. Normal strength and sensation. Psych: Normal affect. Test Results: I reviewed the workup that he had 2 days ago. At that time he had a CT of the flank that was negative. He reports that his back pain is actually improving. I do not think it is worth exposing him to the radiation of this again. He also had a urinalysis that was normal. He had a testicular ultrasound that showed good flow. However, there was question of focal orchitis. I repeated the ultrasound to make sure that he does not have an intermittent torsion Clinical Impression(s) from Imaging Studies Testicular Ultrasound 04/03/18 09:44 IMPRESSION: 1.6 cm x 1.7 cm x 1.8 cm homogeneous hypoechoic mass in the superior pole of the left testicle with a small left hydrocele. A neoplastic process should be ruled out. Electronically Signed: Efraín Titus MD at 12:26 EST Tel [phone], Service support , Emergency Department Course and Treatment: Patient was treated with morphine and Toradol IM. He is resting comfortably. Treatment Plan: Patient already has Levaquin at home. He will be given a prescription for 10 more [place]. He will also have naproxen added. The ultrasound and patient were discussed with Dr. Meyer. He reviewed the ultrasound does state that this looks concerning for a mass. He would like the patient to follow-up with him in a week for further evaluation and treatment. This was discussed with the patient.. Return to the emergency department for any worsening symptoms. Disposition: To home in improved and stable condition. Impression: 1. Left testicular mass. This note was generated with Keepstream dictation software. It may contain incorrect words, spelling, and punctuation that were not noted in review of the chart prior to signing ED Disposition - Plan for ED Patient: Disposition: Home or Assisted Living Chief Complaint: Flank Pain Instructions: ED Orchitis Prescriptions: Hydrocodone Bitart/Apap 5-325 [[place] 5MG-325MG] 1 tablet PO Q4H PRN PRN 2 Days #10 tablet PRN Reason: Pain Naproxen [Naprosyn] 500 mg PO BID #20 tablet Referrals: Care Physician,No Primary [Primary Care Provider] - Additional Instructions: Wear supportive undergarments. Ice the area to help with pain. Follow up with your Urologist in 1 week for another exam. What to do if you have Problems For any increased pain, shortness of breath, bleeding, nausea or vomiting, chest pain, or any unexpected problems, contact your Primary Care Provider. Call [facility] ([phone]) or report to the closest Emergency Room. Call 911 if necessary. 04/03/18 1726 <Electronically signed by Rod Coe MD> Date Rod Coe MD Cosigner Signature (If Indicated): Date CC: No Primary Care Physician TESTICULAR WITH Observed: 04/03/2018 Status: F Source: RASHAUN ARTERIAL FLOW 9:44 AM [facility] REPOSITORY [facility] Imaging Services [address] [place] [address] Testicular with Arterial Flow MR#: [id number] Acct: [id number] Name: DONNELL ADAMS Karan Rep #: [id number] : 1975 M 42 From: Efraín Titus MD PCP: Care Physician, No Primary Status: REG ER Study: Testicular with Arterial Flow Date of Exam: 04/03/18 Exam# [id number] Ordering Dr: Rod Coe MD STUDY: SCROTUM ULTRASOUND REASON FOR EXAM: Male, 42 years old. Pain/tenderness of the left testicle. TECHNIQUE: Ultrasound evaluation of the scrotum was performed with color Doppler and static de paz-scale imaging. COMPARISON: Comparison is made with prior study dated April 01, 2018. FINDINGS: RIGHT TESTICLE INTRATESTICULAR: There is a normal size of the right testicle. The right testicle measures 4.5 cm x 2.8 cm x 2.3 cm. There is a homogenous echotexture. There is normal arterial and normal venous vascularity. There is no demonstrated right testicular mass or cyst. EXTRATESTICULAR: The epididymis is normal in size. The epididymis head measures 1.4 cm x 1.8 cm x 1.1 cm. There is normal vascularity of the epididymis. There is no demonstrated epididymal cystic structure. There is no demonstrated hydrocele. There is no demonstrated varicocele. There is no demonstrated extratesticular mass or cyst. LEFT TESTICLE INTRATESTICULAR: There is a normal size of the left testicle. The left testicle measures 4.3 cm x 2.95 x 2.6 cm. There is a homogenous echotexture. There is normal arterial and normal venous vascularity. There is a 1.6 cm x 1.7 cm x 1.2 cm inhomogeneous hypoechoic mass in the superior pole of the left testicle. There is increased vascularity. A neoplastic process should be ruled out. EXTRATESTICULAR: The epididymis is normal in size. The epididymis head measures 1.6 cm x 1.7 cm x 1.8 cm. There is normal vascularity of the epididymis. There is no demonstrated epididymal cystic structure. There is a small hydrocele. There is no demonstrated varicocele. There is no demonstrated extratesticular mass or cyst. US/Testicular with Arterial Flow IMPRESSION: 1.6 cm x 1.7 cm x 1.8 cm homogeneous hypoechoic mass in the superior pole of the left testicle with a small left hydrocele. A neoplastic process should be ruled out. Electronically Signed: Efraín Titus MD at 12:26 EST Tel [phone], Service support , CC: No Primary Care Physician; Rod Coe MD Assistant Credit Manager: Signed EMERGENCY DEPARTMENT Observed: 04/02/2018 Status: F Source: ANGORA SUMMARY 2:11 AM [facility] REPOSITORY [facility] Medical Records Department [address] [place] [address] Emergency Department Summary 04/02/18 0016 MR#: [id number] Acct: [id number] Name: DONNELL ADMAS Rep #: [id number] : 1975 42 From: Ailyn García MD PCP: Care Physician, No Primary Status: DEP ER - ER Visit Summary Date of Service: 04/02/18 Chief Complaint: Left flank pain History of Present Illness: The patient is a 42 M with left flank pain left testicle pain that progressively worsened throughout the day today. He denies any injury. He denies dysuria or hematuria. Patient has a history of renal cancer and partial right nephrectomy. He has no history of kidney stones. Physical Examination: Vital signs unremarkable. Patient's lying in bed no acute distress. Head and neck examination unremarkable. Heart is regular rate and rhythm. Lung sounds are clear. Abdomen is soft, obese, nontender. examination was tenderness to the left testicle. There is no significant scrotal edema or erythema. No probable masses are noted. Back examination does reveal left CVA tenderness. Test Results: CBC was a white count 12.5 with unremarkable differential. Chemistry studies normal. Urinalysis unremarkable. CT flank shows no acute findings. Testicular ultrasound shows no testicular torsion. There is focal heterogeneous area noted to the left testicle and focal orchitis cannot be ruled out. There is evidence of a small left hydrocele. Right epididymal cyst is noted. Emergency Department Course and Treatment: Patient was given Toradol, morphine, Zofran, and IV fluids. Following ultrasound he did require a second dose of morphine. Test results are discussed with patient and at bedside. With the patient having left testicular tenderness on exam along with probable orchitis on ultrasound, he will be treated with Levaquin, first dose given here. He will follow-up with his urologist in [place]. Treatment Plan: [] Disposition: Discharge Impression: Orchitis left testicle This note was generated with Keepstream dictation software. It may contain incorrect words, spelling, and punctuation that were not noted in review of the chart prior to signing ED Disposition - Plan for ED Patient: Disposition: Home or Assisted Living Chief Complaint: Flank Pain Instructions: ED Orchitis Prescriptions: Hydrocodone Bitart/Apap 5-325 [[place] 5MG-325MG] 1 tablet PO Q6H PRN PRN 3 Days #10 tablet PRN Reason: Pain Levofloxacin [Levaquin] 500 mg PO DAILY #10 tablet Additional Instructions: Follow-up with your urologist in [place] What to do if you have Problems For any increased pain, shortness of breath, bleeding, nausea or vomiting, chest pain, or any unexpected problems, contact your Primary Care Provider. Call [facility] ([phone]) or report to the closest Emergency Room. Call 911 if necessary. 04/02/18210 <Electronically signed by Ailyn García MD> Date Ailyn García MD Cosigner Signature (If Indicated): Date CC: No Primary Care Physician DISCHARGE INSTRUCTION Observed: 04/02/2018 Status: F Source: RASHAUN 12:18 AM [facility] REPOSITORY [facility] Medical Records Department [address] [place] [address] Discharge Instruction 04/02/18 0016 MR#: [id number] Acct: [id number] Name: DONNELL ADAMS Rep #: [id number] : 1975 42 From: Ailyn García MD PCP: Care Physician, No Primary Status: REG ER ED Disposition - Plan for ED Patient: Disposition: Home or Assisted Living Chief Complaint: Flank Pain Instructions: ED Orchitis Prescriptions: Hydrocodone Bitart/Apap 5-325 [[place] 5MG-325MG] 1 tablet PO Q6H PRN PRN 3 Days #10 tablet PRN Reason: Pain Levofloxacin [Levaquin] 500 mg PO DAILY #10 tablet Additional Instructions: Follow-up with your urologist in [place] What to do if you have Problems For any increased pain, shortness of breath, bleeding, nausea or vomiting, chest pain, or any unexpected problems, contact your Primary Care Provider. Call [facility] ([phone]) or report to the closest Emergency Room. Call 911 if necessary. 04/02/18 0018 <Electronically signed by Ailyn García MD> Date Ailyn García MD Cosigner Signature (If Indicated): Date CC: No Primary Care Physician TESTICULAR WITH Observed: 04/01/2018 Status: F Source: ANGORA ARTERIAL FLOW 10:26 PM [facility] REPOSITORY [facility] Imaging Services [address] [place] [address] Testicular with Arterial Flow MR#: [id number] Acct: [id number] Name: DONNELL ADAMS Rep #: [id number] : 1975 M 42 From: Alen Garcia DO PCP: Care Physician, No Primary Status: REG ER Study: Testicular with Arterial Flow Date of Exam: 04/01/18 Exam# [id number] Ordering Dr: Ailyn García MD STUDY: SCROTUM ULTRASOUND REASON FOR EXAM: Male, 42 years old. Left testicular pain TECHNIQUE: Ultrasound evaluation of the scrotum was performed with color Doppler and static de paz-scale imaging. COMPARISON: None. FINDINGS: RIGHT TESTICLE INTRATESTICULAR: There is a normal size of the right testicle. The right testicle measures 4.4 x 3.1 x 2.2 cm. There is a homogenous echotexture. There is normal arterial and normal venous vascularity. There is no demonstrated right testicular mass or cyst. EXTRATESTICULAR: The epididymis is normal in size. The epididymis head measures 1.2 x 0.9 x 0.5 cm. There is normal vascularity of the epididymis. There is a 3 mm epididymal cyst. There is no demonstrated hydrocele. There is no demonstrated varicocele. There is no demonstrated extratesticular mass or cyst. LEFT TESTICLE INTRATESTICULAR: There is a normal size of the left testicle. The left testicle measures 4.5 x 3.0 x 1.9 cm. There is a homogenous echotexture. There is normal arterial and normal venous vascularity. There is an area of slight heterogeneity. Focal orchitis cannot be excluded. EXTRATESTICULAR: The epididymis is normal in size. The epididymis head measures 1.1 x 0.7 x 0.7 cm. There is normal vascularity of the epididymis. There is no demonstrated epididymal cystic structure. There is a small hydrocele. There is no demonstrated varicocele. There is no demonstrated extratesticular mass or cyst. US/Testicular with Arterial Flow IMPRESSION: No testicular torsion. Focal heterogeneous area of the left testicle. Focal orchitis cannot be excluded. Small left hydrocele. Right epididymal cyst. Electronically Signed: Alen Garcia DO at 0:00 EST Tel [phone], Service support , CC: No Primary Care Physician; Ailyn García MD Assistant Credit Manager: Signed ABDOMEN/PELVIS WITHOUT Observed: 04/01/2018 Status: F Source: RASHAUN CONT 9:26 PM [facility] REPOSITORY [facility] Imaging Services [address] [place] [address] Abdomen/Pelvis without Cont MR#: [id number] Acct: [id number] Name: DONNELL ADAMS Rep #: [id number] : 1975 M 42 From: Sita Yen MD PCP: Care Physician, No Primary Status: REG ER Study: Abdomen/Pelvis without Cont Date of Exam: 04/01/18 Exam# [id number] Ordering Dr: Ailyn García MD STUDY: CT ABDOMEN AND PELVIS WITHOUT CONTRAST REASON FOR EXAM: Male, 42 years old. Left-sided flank pain. History of prior right nephrectomy secondary to cancer. RADIATION DOSAGE (If Supplied By Facility): CTDIvol = ( 32.59 ) mGy, DLP = ( 1987.03 ) mGycm TECHNIQUE: Transaxial images were obtained from the dome of the diaphragm to the symphysis pubis without oral contrast, and without intravenous contrast. Sagittal and coronal images were reconstructed. Individualized dose optimization techniques were used for this CT. COMPARISON: Prior abdomen and pelvic CT exam of October 27, 2017 FINDINGS: The visualized lung bases are unremarkable. The visualized portions of the heart are within normal limits. Normal liver. Normal gallbladder and extrahepatic biliary system. Normal spleen. Normal pancreas. Normal bilateral adrenal glands. Stable appearance of the right kidney status post a limited right nephrectomy. Negative for hydronephrosis or stones. Normal left kidney without hydronephrosis or stones. Normal visualized stomach. Normal small intestine. Normal colon. The appendix is visualized and appears normal. Normal abdominal aorta. Normal inferior vena cava. Normal retroperitoneum. Normal urinary bladder. Minimal fatty umbilical hernia. Mild degenerative changes of the lumbar spine. CT/Abdomen/Pelvis without Cont IMPRESSION: No acute abdominal or pelvic findings or changes. Status post a very limited right nephrectomy. The remaining kidney is unremarkable with no hydronephrosis or stones. Normal left kidney without hydronephrosis or stones. Unremarkable urinary bladder. No acute bowel related findings. Negative for evidence of obstruction, perforation or inflammatory bowel changes. A normal appendix is identified. Unremarkable liver, spleen, gallbladder and pancreas. Electronically Signed: Sita Yen MD at 22:26 EST , Service support , CC: No Primary Care Physician; Ailyn García MD Assistant Credit Manager: Signed BASIC METABOLIC Collected: 04/01/2018 Status: F Source: RASHAUN PROFILE (BMP) 8:15 PM [facility] REPOSITORY TYPE CODE TESTS RESULT OUT OF RANGE REFERENCE UNITS LAB L501.0100 74-106 mg/dL High GLU 114 Result Comment: Fasting Glucose result from 100 to 125 mg/dL suggests IMPAIRED HOMEOSTASIS per A.D.A. criteria. Please note revised GLUCOSE reference range effective 2017. LAB L501.1000 7-18 mg/dL Normal BUN 10 LAB L501.1100 0.70-1.30 mg/dL Normal CREAT,SERUM 0.95 Result Comment: The validity of the calculated GFR AND GFRAA in patients over 70 years has not been determined. Clinical correlation is essential. LAB L501.1110 >60 mL/min Normal EST GFR 91 Result Comment: Non- GFR Calc LAB L501.1115 >60 mL/min Normal EST GFR - AA 110 Result Comment: GFR Calc LAB L501.1255 ml/min Normal Estimated CRCL 113.31 LAB L501.1300 10-20 RATIO BUN/CRE Normal 10.5 LAB L501.2200 8.5-10 mg/dL .1 CA Normal 8.9 LAB L501.5300 136-14 mmol/L 5 NA Normal 140 LAB L501.5600 3.5-5. mmol/L 1 K Normal 4.0 LAB L501.5900 98-107 mmol/L CL Normal 105 LAB L501.6100 21.0-3 mmol/L 2.0 CO2 Normal 28.0 LAB L501.6200 5-15 GAP Normal 7 Performed By: #### L500.2500 #### [facility] [address] [place], [place], [id number] CBC W/DIFF, AUTOMATED Collected: 04/01/2018 Status: F Source: RASHAUN 8:15 PM [facility] REPOS[facility] TYPE CODE TESTS RESULT OUT OF RANGE REFERENCE UNITS LAB L100.1000 4.4-11.0 K/mm3 High WBC 12.5 LAB L100.1200 4.6-6.2 M/mm3 Normal RBC 4.99 LAB L100.1300 13.0-16.5 g/dl Normal HGB 16.5 LAB L100.1400 40-54 % Normal HCT 45.8 LAB L100.1500 80-94 fL Normal MCV 91.8 LAB L100.1600 27.0-32.0 pg High MCH 33.1 LAB L100.1700 32-36 g/gl Normal MCHC 36.0 LAB L100.1810 11.6-14.6 % Normal RDW CV 13.2 LAB L100.1820 35.1-43.9 fl Normal RDW SD 43.7 LAB L100.1900 150-450 K/mm3 Normal PLT 218 LAB L100.2000 6.2-12.0 fl Normal MPV 11.2 LAB L100.2100 47-70 % Normal NEUT% 60.9 LAB L100.2200 19-41 % Normal LY% 25.8 LAB L100.2300 0-10 % Normal MONO% 8.5 LAB L100.2400 0-5 % Normal EO% 4.0 LAB L100.2500 0-1 % Normal BASO% 0.5 LAB L100.2550 0.0-0.9 % Normal IM GRAN % 0.300 Result Comment: IG% - Immature Granulocytes (promyelocytes, myelocytes and metamyelocytes) > 1% indicates that a LEFT SHIFT is Present. LAB L100.2620 2.0-7.7 X10 3/uL Normal Absolute Neut 7.6 LAB L100.2720 0.83-4.51 X10 3/ul Normal Absolute Lymph 3.23 Performed By: #### L100.0100 #### [facility] [address] [place], [address] URINALYSIS, COMPLETE Collected: 04/01/2018 Status: F Source: [place] 7:55 PM [facility] REPOSITORY Order Comment: Order Date: 04/01/18 How was Urine Obtained? [employer] TO SPECIFY TYPE CODE TESTS RESULT OUT OF RANGE REFERENCE UNITS LAB L400.3000 Yellow COLOR Normal Yellow LAB L400.3050 Clear Normal CLARITY Clear LAB L400.3200 Normal mg/dl Normal GLUCOSE, UR Normal LAB L400.3300 Negative mg/dL Normal BILIRUBIN URINE Negative LAB L400.3400 Negative mg/dl Normal KETONE UR Negative LAB L400.3465 1.002-1.030 Normal SP.GR. DIPSTX 1.025 LAB L400.3550 5.0 - 8.0 pH UR Normal 5.0 LAB L400.3600 Negative mg/dl PROT Normal DIPSTX Negative LAB L400.3700 Normal mg/dl High 1 UROBILI LAB L400.3750 Negative Normal NITRITE UR Negative LAB L400.3780 Negative /ul High 10 OCCULT BLOOD-UR LAB L400.3800 Negative /ul LEUK Normal ESTERASE Negative LAB L400.4050 0-5 /hpf WBC 0 Normal SEEN LAB L400.4100 0-5 /hpf 0 Normal RBC-UA SEEN LAB L400.4150 0-5 /hpf SQUAM 0 Normal EPI SEEN LAB L400.4300 None Seen /hpf 0 Normal BACTERIA SEEN LAB L400.4350 <or=2+ /hpf 0 Normal MUCUS, URINE SEEN Performed By: #### L400.0001 #### [facility] [address] [facility] [place], [address] EMERGENCY DEPARTMENT Observed: 01/14/2018 Status: F Source: AN[place] SUMMARY 10:55 PM [facility] REPOSITORY [facility] Medical Records Department [address] [place] [address] Emergency Department Summary 01/14/18 2253 MR#: [id number] Acct: [id number] Name: DONNELL ADAMS Rep #: [id number] : 1975 42 From: Anna Amos MD PCP: Care Physician, No Primary Status: REG ER - ER Visit Summary Date of Service: 01/14/18 Chief Complaint: Left foot pain History of Present Illness: The patient is a 42 M presenting with left foot pain. He states this began about a week ago. He has pain to the bottom of his left foot that radiates up his left calf. He denies any injury. He stands frequently at work and wears work boots. Denies other complaints. Physical Examination: Vitals are stable. Patient is afebrile. Alert no acute distress. HEENT exam is unremarkable. Neck is supple. Lungs are clear and equal bilaterally. Heart is regular rate and rhythm. Extremities tenderness plantar surface left foot. No erythema or warmth. Mild calf tenderness. Normal pulse. Skin is warm and dry. No focal neurologic deficit. Remainder of exam is unremarkable. Emergency Department Course and Treatment: Ultrasound left lower extremity shows no evidence of DVT. Patient was given Naprosyn. He is advised this is likely plantar fasciitis. He is advised to use shoe inserts. Advised to follow-up with podiatry. Advised return to ED if worsening complaints. Disposition: Discharge home Impression: Plantar fasciitis This note was generated with Keepstream dictation software. It may contain incorrect words, spelling, and punctuation that were not noted in review of the chart prior to signing ED Disposition - Plan for ED Patient: Chief Complaint: Lower Extremity Injury Instructions: ED Plantar Fasciitis Prescriptions: Naproxen [Naprosyn] 500 mg PO BID PRN #20 tablet Referrals: Dany Gallegos DPM [STAFF PHYSICIAN] - Care Physician,No Primary [Primary Care Provider] - What to do if you have Problems For any increased pain, shortness of breath, bleeding, nausea or vomiting, chest pain, or any unexpected problems, contact your Primary Care Provider. Call [facility] ([phone]) or report to the closest Emergency Room. Call 911 if necessary. 01/14/182254 <Electronically signed by Anna Amos MD> Date Anna Amos MD Cosigner Signature (If Indicated): Date CC: No Primary Care Physician DISCHARGE INSTRUCTION Observed: 01/14/2018 Status: F Source: [place] 10:51 PM [facility] REPOSITORY [facility] Medical Records Department [address] [place] [address] Discharge Instruction 01/14/182249 MR#: [id number] Acct: [id number] Name: DONNELL ADAMS Rep #: [id number] : 1975 42 From: Anna Amos MD PCP: Care Physician, No Primary Status: REG ER ED Disposition - Plan for ED Patient: Chief Complaint: Lower Extremity Injury Instructions: ED Plantar Fasciitis Prescriptions: Naproxen [Naprosyn] 500 mg PO BID PRN #20 tablet Referrals: Care Physician,No Primary [Primary Care Provider] - Dany Gallegos DPM [STAFF PHYSICIAN] - What to do if you have Problems For any increased pain, shortness of breath, bleeding, nausea or vomiting, chest pain, or any unexpected problems, contact your Primary Care Provider. Call [facility] ([phone]) or report to the closest Emergency Room. Call 911 if necessary. 01/14/18 3408 <Electronically signed by Anna Amos MD> Date Anna Amos MD Cosigner Signature (If Indicated): Date CC: No Primary Care Physician VENOUS DUPLEX Observed: 01/14/2018 Status: F Source: AN[place] IMAG/LIMITED/UNI 9:46 PM [facility] REPOSITORY [facility] Imaging Services [address] [place] [address] Venous Duplex Imag/Limited/Uni MR#: [id number] Acct: [id number] Name: DONNELL ADAMS Rep #: [id number] : 1975 M 42 From: Dany Stephen MD PCP: Care Physician, No Primary Status: REG ER Study: Venous Duplex Imag/Limited/Uni Date of Exam: 01/14/18 Exam# [id number] Ordering Dr: Anna Amos MD STUDY: VENOUS DOPPLER ULTRASOUND - LEFT LOWER EXTREMITY REASON FOR EXAM: Male, 42 years old. Swelling TECHNIQUE: Ultrasound evaluation of the deep vein system to include de paz-scale imaging and compression was performed. De Paz-scale imaging and Doppler sonographic evaluation, including duplex spectral analysis and qualitative color flow sonography, was performed. COMPARISON: None. FINDINGS: Common Femoral Vein: Normal compression, spontaneity and augmentation. Normal color Doppler. Common Femoral Vein/Greater Saphenous Junction: Normal compression, spontaneity and augmentation. Normal color Doppler. Deep Femoral Vein: Normal compression, spontaneity and augmentation. Normal color Doppler. Femoral Proximal: Normal compression, spontaneity and augmentation. Normal color Doppler. Femoral Middle: Normal compression, spontaneity and augmentation. Normal color Doppler. Femoral Distal: Normal compression, spontaneity and augmentation. Normal color Doppler. Popliteal Vein: Normal compression, spontaneity and augmentation. Normal color Doppler. Posterior Tibial Vein: Normal compression, spontaneity and augmentation. Normal color Doppler. Peroneal Vein: Normal compression, spontaneity and augmentation. Normal color Doppler. US/Venous Duplex Imag/Limited/Uni IMPRESSION: Normal venous Doppler ultrasound of the lower extremity. Electronically Signed: Dany Stephen MD at 22:15 EDT , Service support , CC: No Primary Care Physician; Anna Amos MD Assistant Credit Manager: Signed XR CHEST 1 VIEW Observed: 12/10/2017 Status: F Source: [facility] 9:15 AM [facility] REPOSITORY ORIGINAL XR CHEST 1 VIEW PORTABLE AP upright TIME: 9:09 AM CLINICAL STATEMENT: SOB/cough/fever, chest pain, asthma attack COMPARISON: None FINDINGS: The cardiomediastinal contours are normal. The aorta is mildly tortuous. There is no consolidation, vascular congestion, pleural effusion, or pneumothorax. There is a remote deformity of the d istal RIGHT clavicle. Bony structures are otherwise unremarkable. IMPRESSION: No acute process. I have personally reviewed the images of this examination and agree with the resident's findings and interpretation. Interpreted By: Jeremy Chambers MD Preliminary Report By: Des Gilbert DO Electronically Signed By: Jeremy Chambers MD Dictated Date: 12/10/2017 9:18:01 AM Prelim Date: 12/10/2017 9:35:36 AM Sign Date: 12/10/2017 9:39:05 AM DISCHARGE INSTRUCTION Observed: 10/27/2017 Status: F Source: [facility] 3:52 AM [facility] Medical Records Department [address] [place] [address] Discharge Instruction 10/27/17 0208 MR#: [id number] Acct: [id number] Name: DONNELL ADAMS Rep #: [id number] : 1975 42 From: Dany Cabral MD PCP: Ingrid Physician, No Primary Status: DEP ER ED Disposition - Plan for ED Patient: Disposition: Home or Assisted Living Chief Complaint: Flank Pain Instructions: ED Flank Pain Uncertain Cause Referrals: Care Physician,No Primary [Primary Care Provider] - As Needed Jose Cruz Rousseau MD [STAFF PHYSICIAN] - As Needed Additional Instructions: Your labs and CAT scan today were unremarkable. There was no specific finding that was consistent with your pain. Use Tylenol Motrin for pain. Follow-up with either your primary care physician or Dr. Everette Rousseau as needed. What to do if you have Problems For any increased pain, shortness of breath, bleeding, nausea or vomiting, chest pain, or any unexpected problems, contact your Primary Care Provider. Call [facility] ([phone]) or report to the closest Emergency Room. Call 911 if necessary. 10/27/17 0352 <Electronically signed by Dany Cabral MD> Date Dany Cabral MD Cosigner Signature (If Indicated): Date CC: No Primary Care Physician EMERGENCY DEPARTMENT Observed: 10/27/2017 Status: F Source: [place] SUMMARY 2:08 AM [facility] Medical Records Department [address] [place] [address] Emergency Department Summary 10/26/17 2324 MR#: [id number] Acct: [id number] Name: DONNELL ADAMS Rep #: [id number] : 1975 42 From: Donnell Carrasco DO PCP: Care Physician, No Primary Status: REG ER ADDENDUM by Dany Cabral MD on 10/27/17 at 0208 Patient turned over to me from Dr. Kellogg. His CT abdomen and pelvis showed no acute abnormality reviewed by me and just. CBC showed a slightly elevated white count of 14 with an H AND H of 17 and 47. No bands. Chemistry panel normal. Liver panel normal. Lipase normal. UA normal. No signs of infection or blood. On repeat exam at both 04 25 and 204 patient is doing well. He is comfortable being discharged home. His repeat abdominal exam is benign. I went over all test results with him. Diagnosis: Acute flank pain of uncertain etiology Patient will be discharged to home to follow-up as needed. Date Dany Cabral MD cc: No Primary Care Physician * Signed - ER Visit Summary Date of Service: 10/26/17 Chief Complaint: Right flank pain History of Present Illness: The patient is a 42 M who presents with right flank pain of about 2-3 days duration. Patient states that he was seen earlier this month with similar symptoms was felt to have a colon infection was placed on antibiotics. (CT done at that time showed a possible focal area of colitis at the hepatic flexure) states that while he was on the antibiotics his symptoms proved. Now they have returned. He denies any diarrhea nausea vomiting. No fevers or chills. No rashes. No shortness of breath or cough. He denies any heavy lifting or potential strain or falls. He notes pain in the right CVA region. He states that in December 2015 he had a partial nephrectomy due to kidney cancer at [facility] he is unsure of the urologist name. He denies any hematuria or urinary frequency or dysuria. Physical Examination: Afebrile vital signs are stable Gen: Well-nourished well-developed obese Head: Normocephalic atraumatic Eyes: Perrl EOMI ENT: TMs clear no rhinorrhea moist mucous membranes Neck: Supple no lymphadenopathy no JVD nontender CVS: Regular rate rhythm no murmurs normal S1-S2 Respiratory: No distress clear to auscultation bilaterally chest nontender Abdomen: Soft nontender nondistended normal bowel sounds no masses Back: Mildly tender palpation in the right CVA area Extremity: Nontender no edema Skin: Normal color no rash Neuro: alert orientated 3 CN II-XII intact normal strength sensation reflexes gait cerebellar Psych: Normal affect normal mood Test Results: CBC CMP urinalysis lipase were obtained. This showed a leukocytosis of 14.5. CT of the abdomen pelvis with IV contrast was ordered. Emergency Department Course and Treatment: Patient received morphine and Zofran. Care the patient will be assigned to Dr. Dany Cabral for check of CT findings and final disposition. Impression: 1. Right flank pain This note was generated with Keepstream dictation software. It may contain incorrect words, spelling, and punctuation that were not noted in review of the chart prior to signing ED Disposition - Plan for ED Patient: Chief Complaint: Flank Pain Referrals: Care Physician,No Primary [Primary Care Provider] - What to do if you have Problems For any increased pain, shortness of breath, bleeding, nausea or vomiting, chest pain, or any unexpected problems, contact your Primary Care Provider. Call [facility] ([phone]) or report to the closest Emergency Room. Call 911 if necessary. 10/27/17 0027 <Electronically signed by Donnell Carrasco DO> Date Donnell Carrasco DO Cosigner Signature (If Indicated): Date CC: No Primary Care Physician ABDOMEN/PELVIS W IV CONT Observed: 10/27/2017 Status: F Source: [place] ONLY 12:20 AM [facility] REPOSITORY [facility] Imaging Services [address] [place] [address] Abdomen/Pelvis W IV Cont ONLY MR#: [id number] Acct: [id number] Name: DONNELL ADAMS Karan Rep #: [id number] : 1975 M 42 From: Olegario Schmidt MD PCP: Care Physician, No Primary Status: REG ER Study: Abdomen/Pelvis W IV Cont ONLY Date of Exam: 10/27/17 Exam# [id number] Ordering Dr: Donnell Carrasco DO STUDY: CT ABDOMEN AND PELVIS WITH CONTRAST REASON FOR EXAM: Male, 42 years old. Right flank pain RADIATION DOSAGE (If Supplied By Facility): CTDIvol = ( 27.05 ) mGy, DLP = ( 1433.08 ) mGycm TECHNIQUE: Transaxial images were obtained from the dome of the diaphragm to the symphysis pubis without oral contrast. 100ML ml of Isovue 300 contrast was administered. Sagittal and coronal images were reconstructed. Individualized dose optimization techniques were used for this CT. COMPARISON: None. FINDINGS: The visualized lung bases are unremarkable. The visualized portions of the heart are within normal limits. Normal liver. Normal gallbladder and extrahepatic biliary system. Normal spleen. Normal pancreas. Normal bilateral adrenal glands. Postoperative change from partial nephrectomy of the posterior mid right kidney. Normal left kidney. Normal bilateral ureters. Normal visualized stomach. Normal small intestine. Normal colon. The appendix is visualized and appears normal. Normal abdominal aorta. Normal inferior vena cava. Normal retroperitoneum. Normal urinary bladder. Normal abdominal wall. There are diffuse degenerative changes of the visualized lumbar spine. CT/Abdomen/Pelvis W IV Cont ONLY IMPRESSION: No evidence of an acute intra-abdominal abnormality. Electronically Signed: Olegario Schmidt MD at 1:28 EDT Tel , Service support , CC: No Primary Care Physician; Donnell Carrasco DO Assistant Credit Manager: Signed BASIC METABOLIC Collected: 10/26/2017 Status: F Source: [place] PROFILE (BMP) 11:55 PM [facility] REPOSITORY Order Comment: REDRAW. PREVIOUS SPECIMEN REJECTED DUE TO HEMOLYSIS. 10/26/17 2352 Taryn Hale. TYPE CODE TESTS RESULT OUT OF RANGE REFERENCE UNITS LAB L501.0100 74-106 mg/dL Normal GLU 97 Result Comment: Please note revised GLUCOSE reference range effective 2017. LAB L501.1000 7-18 mg/dL Normal BUN 10 LAB L501.1100 0.70-1.30 mg/dL Normal CREAT,SERUM 0.83 Result Comment: The validity of the calculated GFR AND GFRAA in patients over 70 years has not been determined. Clinical correlation is essential. LAB L501.1110 >60 mL/min Normal EST GFR 107 Result Comment: Non- GFR Calc LAB L501.1115 >60 mL/min Normal EST GFR - AA 129 Result Comment: GFR Calc LAB L501.1255 ml/min Normal Estimated CRCL 129.69 LAB L501.1300 10-20 RATIO BUN/CRE Normal 12.0 LAB L501.2200 8.5-10 mg/dL .1 CA Normal 8.8 LAB L501.5300 136-14 mmol/L 5 NA Normal 139 LAB L501.5600 3.5-5. mmol/L 1 K Normal 4.4 LAB L501.5900 98-107 mmol/L CL Normal 107 LAB L501.6100 21.0-3 mmol/L 2.0 CO2 Normal 28.0 LAB L501.6200 5-15 Low GAP 4 Performed By: #### L500.2500, L500.3400, L501.2450 #### [facility] [address] [place], [address] LIVER PROFILE Collected: 10/26/2017 Status: F Source: [place] 11:55 PM [facility] REPOSITORY Order Comment: REDRAW. PREVIOUS SPECIMEN REJECTED DUE TO HEMOLYSIS. 10/26/17 2352 Taryn Hale. TYPE CODE TESTS RESULT OUT OF RANGE REFERENCE UNITS LAB L501.1500 6.4-8.2 g/dL Normal T PROT 7.4 LAB L501.1800 3.2-5.0 g/dL Normal ALB 3.4 LAB L501.1950 2.2-4.2 g/dL Normal GLOB 4.0 LAB L501.4100 15-37 U/L Normal AST 18 LAB L501.4305 45-117 U/L Normal ALK P 65 LAB L501.4405 16-61 U/L Normal ALT 32 LAB L501.4600 0.20-1.00 mg/dL Normal T BILI 0.40 LAB L501.4700 0.00-0.30 mg/dL Normal D BILI 0.14 Performed By: #### L500.2500, L500.3400, L501.2450 #### [facility] [address] [place], [address] LIPASE Collected: 10/26/2017 Status: F Source: [place] 11:55 PM [facility] REPOSITORY Order Comment: REDRAW. PREVIOUS SPECIMEN REJECTED DUE TO HEMOLYSIS. 10/26/17 2352 Taryn Hale. TYPE CODE TESTS RESULT OUT OF REFERENCE UNITS RANGE LAB L501.2450 73-393 U/L Low LIPASE 68 Performed By: #### L500.2500, L500.3400, L501.2450 #### [facility] [address] [place], [address] CBC W/DIFF, AUTOMATED Collected: 10/26/2017 Status: F Source: [place] 11:10 PM [facility] REPOSITORY TYPE CODE TESTS RESULT OUT OF RANGE REFERENCE UNITS LAB L100.1000 4.4-11.0 K/mm3 High WBC 14.2 LAB L100.1200 4.6-6.2 M/mm3 Normal RBC 5.24 LAB L100.1300 13.0-16.5 g/dl High HGB 17.3 LAB L100.1400 40-54 % Normal HCT 47.8 LAB L100.1500 80-94 fL Normal MCV 91.2 LAB L100.1600 27.0-32.0 pg High MCH 33.0 LAB L100.1700 32-36 g/gl High MCHC 36.2 LAB L100.1810 11.6-14.6 % Normal RDW CV 13.6 LAB L100.1820 35.1-43.9 fl High RDW SD 44.9 LAB L100.1900 150-450 K/mm3 Normal PLT 197 LAB L100.2000 6.2-12.0 fl Normal MPV 11.0 LAB L100.2100 47-70 % Normal NEUT% 68.7 LAB L100.2200 19-41 % Normal LY% 20.8 LAB L100.2300 0-10 % Normal MONO% 7.1 LAB L100.2400 0-5 % Normal EO% 3.0 LAB L100.2500 0-1 % Normal BASO% 0.3 LAB L100.2550 0.0-0.9 % Normal IM GRAN % 0.100 Result Comment: IG% - Immature Granulocytes (promyelocytes, myelocytes and metamyelocytes) > 1% indicates that a LEFT SHIFT is Present. LAB L100.2620 2.0-7.7 X10 3/uL High Absolute Neut 9.8 LAB L100.2720 0.83-4.51 X10 3/ul Normal Absolute Lymph 2.96 Performed By: #### L100.0100 #### [facility] [address] [place], [address] URINALYSIS, COMPLETE Collected: 10/26/2017 Status: F Source: [place] 11:10 PM [facility] REPOSITORY Order Comment: Order Date: 10/26/17 Has pt arrived? Y How was Urine Obtained? CLEAN CATCH TYPE CODE TESTS RESULT OUT OF RANGE REFERENCE UNITS LAB L400.3000 Yellow COLOR Normal Yellow LAB L400.3050 Clear Normal CLARITY Clear LAB L400.3200 Normal mg/dl Normal GLUCOSE, UR Normal LAB L400.3300 Negative mg/dL Normal BILIRUBIN URINE Negative LAB L400.3400 Negative mg/dl Normal KETONE UR Negative LAB L400.3465 1.002-1.030 Normal SP.GR. DIPSTX 1.010 LAB L400.3550 5.0 - 8.0 pH UR Normal 6.5 LAB L400.3600 Negative mg/dl PROT Normal DIPSTX Negative LAB L400.3700 Normal mg/dl Normal UROBILI Normal LAB L400.3750 Negative Normal NITRITE UR Negative LAB L400.3780 Negative /ul High 10 OCCULT BLOOD-UR LAB L400.3800 Negative /ul LEUK Normal ESTERASE Negative LAB L400.4050 0-5 /hpf WBC 0 Normal SEEN LAB L400.4100 0-5 /hpf 0 Normal RBC-UA SEEN LAB L400.4150 0-5 /hpf SQUAM 0 Normal EPI SEEN LAB L400.4300 None Seen /hpf 0 Normal BACTERIA SEEN LAB L400.4350 <or=2+ /hpf 0 Normal MUCUS, URINE SEEN Performed By: #### L400.0001 #### [facility] [address] [place], [address] DISCHARGE INSTRUCTION Observed: 10/08/2017 Status: F Source: [place] 8:51 PM [facility] REPOSITORY [facility] Medical Records Department [address] [address] Discharge Instruction 10/08/172048 MR#: [id number] Acct: [id number] Name: DONNELL ADAMS Rep #: [id number] : 1975 42 From: Nick Peace MD PCP: Care Physician, No Primary Status: REG ER ED Disposition - Plan for ED Patient: Chief Complaint: Flank Pain Instructions: ED Flank Pain Uncertain Cause Prescriptions: Ciprofloxacin [Cipro] 500 mg PO BID #14 tab Referrals: Care Physician,No Primary [Primary Care Provider] - Ab Ricardo MD [STAFF PHYSICIAN] - What to do if you have Problems For any increased pain, shortness of breath, bleeding, nausea or vomiting, chest pain, or any unexpected problems, contact your Primary Care Provider. Call [facility] ([phone]) or report to the closest Emergency Room. Call 911 if necessary. 10/08/172050 <Electronically signed by Nick Peace MD> Date Nick Peace MD Cosigner Signature (If Indicated): Date CC: No Primary Care Physician EMERGENCY DEPARTMENT Observed: 10/08/2017 Status: F Source: [place] SUMMARY 8:49 PM [facility] REPOSITORY [facility] Medical Records Department [address] [place] [address] Emergency Department Summary 10/08/172046 MR#: [id number] Acct: [id number] Name: DONNELL ADAMS Rep #: [id number] : 1975 42 From: Nick Peace MD PCP: Ingrid PhysicianMandy Primary Status: REG ER - ER Visit Summary Date of Service: 10/08/17 Chief Complaint: Flank pain History of Present Illness: The patient is a 42 M who presents with flank pain. It began yesterday. It is sharp in nature. He complains of pain in his kidney area. Pain is nonradiating. He currently rates it as 7 out of 10. He does have a history of renal cell carcinoma with partial nephrectomy on the right. He denies nausea vomiting or diarrhea. He does note urgency but denies dysuria or hematuria. No fevers. Physical Examination: Afebrile vitals are unremarkable Moist mucous membranes Heart regular rate and rhythm Lungs are clear Abdomen soft nontender nondistended He has mild right CVA tenderness Test Results: Labs notable for white blood cell count 11.[address] of the abdomen and pelvis shows stranding of the pericolonic fat near the hepatic flexure concerning for possible colitis. Emergency Department Course and Treatment: Patient does not have diarrhea or fever but he does have fat stranding in a region that could potentially explain his right flank tenderness. Will cover for possible infectious colitis. He does not currently have a primary care physician. He was referred to Dr. Ricardo. He was instructed on specific signs and symptoms to monitor for, conditions under which to return to the emergency department he was discharged home. Treatment Plan: [] Disposition: Discharge Impression: Hepatic flexure colitis This note was generated with Keepstream dictation software. It may contain incorrect words, spelling, and punctuation that were not noted in review of the chart prior to signing ED Disposition - Plan for ED Patient: Chief Complaint: Flank Pain Referrals: Care Physician,No Primary [Primary Care Provider] - What to do if you have Problems For any increased pain, shortness of breath, bleeding, nausea or vomiting, chest pain, or any unexpected problems, contact your Primary Care Provider. Call [facility] ([phone]) or report to the closest Emergency Room. Call 911 if necessary. 10/08/172048 <Electronically signed by Nick Peace MD> Date Nick Peace MD Cosigner Signature (If Indicated): Date CC: No Primary Care Physician ABDOMEN/PELVIS W IV CONT Observed: 10/08/2017 Status: F Source: [place] ONLY 7:06 PM [facility] REPOSITORY [facility] Imaging Services [address] [place] [address] Abdomen/Pelvis W IV Cont ONLY MR#: [id number] Acct: [id number] Name: DONNELL ADAMS Rep #: [id number] : 1975 M 42 From: Johnathon Bright MD PCP: Care Physician, No Primary Status: REG ER Study: Abdomen/Pelvis W IV Cont ONLY Date of Exam: 10/08/17 Exam# [id number] Ordering Dr: Nick Peace MD STUDY: CT ABDOMEN AND PELVIS WITH CONTRAST REASON FOR EXAM: Male, 42 years old. Right flank pain and partial right nephrectomy for cancer RADIATION DOSAGE (If Supplied By Facility): CTDIvol = ( 20.40 ) mGy, DLP = ( 1372.03 ) mGycm TECHNIQUE: Transaxial images were obtained from the dome of the diaphragm to the symphysis pubis without oral contrast. 100ML ml of Isovue 300 contrast was administered. Sagittal and coronal images were reconstructed. Individualized dose optimization techniques were used for this CT. COMPARISON: January 07, 2017 FINDINGS: The visualized lung bases are unremarkable. The visualized portions of the heart are within normal limits. Normal liver. Normal gallbladder and extrahepatic biliary system. Normal spleen. Normal pancreas. Normal bilateral adrenal glands. Normal right kidney. Normal left kidney. Normal visualized stomach. Normal small intestine. There appears to be stranding of the pericolonic fat near the hepatic flexure. The appendix is visualized and appears normal. Normal abdominal aorta. Normal inferior vena cava. Normal retroperitoneum. Normal urinary bladder. There is a small umbilical hernia containing fat. Normal osseous structures. CT/Abdomen/Pelvis W IV Cont ONLY IMPRESSION: Possible segmental nonspecific acute colitis hepatic flexure Electronically Signed: Johnathon Bright MD at 20:26 EDT , Service support , CC: No Primary Care Physician; Nick Peace MD Assistant Credit Manager: Signed CBC W/DIFF, AUTOMATED Collected: 10/08/2017 Status: F Source: [place] 7:00 PM [facility] REPOSITORY TYPE CODE TESTS RESULT OUT OF RANGE REFERENCE UNITS LAB L100.1000 4.4-11.0 K/mm3 High WBC 11.3 LAB L100.1200 4.6-6.2 M/mm3 Normal RBC 5.14 LAB L100.1300 13.0-16.5 g/dl Normal HGB 16.4 LAB L100.1400 40-54 % Normal HCT 46.8 LAB L100.1500 80-94 fL Normal MCV 91.1 LAB L100.1600 27.0-32.0 pg Normal MCH 31.9 LAB L100.1700 32-36 g/gl Normal MCHC 35.0 LAB L100.1810 11.6-14.6 % Normal RDW CV 13.5 LAB L100.1820 35.1-43.9 fl High RDW SD 44.5 LAB L100.1900 150-450 K/mm3 Normal PLT 206 LAB L100.2000 6.2-12.0 fl Normal MPV 10.7 LAB L100.2100 47-70 % Normal NEUT% 56.1 LAB L100.2200 19-41 % Normal LY% 31.7 LAB L100.2300 0-10 % Normal MONO% 7.0 LAB L100.2400 0-5 % Normal EO% 4.7 LAB L100.2500 0-1 % Normal BASO% 0.4 LAB L100.2550 0.0-0.9 % Normal IM GRAN % 0.100 Result Comment: IG% - Immature Granulocytes (promyelocytes, myelocytes and metamyelocytes) > 1% indicates that a LEFT SHIFT is Present. LAB L100.2620 2.0-7.7 X10 3/uL Normal Absolute Neut 6.3 LAB L100.2720 0.83-4.51 X10 3/ul Normal Absolute Lymph 3.58 Performed By: #### L100.0100 #### [facility] [address] [place], [address] URINALYSIS, COMPLETE Collected: 10/08/2017 Status: F Source: [place] 7:00 PM [facility] REPOSITORY Order Comment: Order Date: 10/08/17 How was Urine Obtained? CLEAN CATCH TYPE CODE TESTS RESULT OUT OF RANGE REFERENCE UNITS LAB L400.3000 Yellow COLOR Normal Yellow LAB L400.3050 Clear Normal CLARITY Clear LAB L400.3200 Normal mg/dl Normal GLUCOSE, UR Normal LAB L400.3300 Negative mg/dL Normal BILIRUBIN URINE Negative LAB L400.3400 Negative mg/dl Normal KETONE UR Negative LAB L400.3465 1.002-1.030 Normal SP.GR. DIPSTX 1.025 LAB L400.3550 5.0 - 8.0 pH UR Normal 5.0 LAB L400.3600 Negative mg/dl PROT Normal DIPSTX Negative LAB L400.3700 Normal mg/dl High 1 UROBILI LAB L400.3750 Negative Normal NITRITE UR Negative LAB L400.3780 Negative /ul High 25 OCCULT BLOOD-UR LAB L400.3800 Negative /ul High LEUK 25 ESTERASE LAB L400.4050 0-5 /hpf WBC Normal 0-5 SEEN LAB L400.4100 0-5 /hpf 0 Normal RBC-UA SEEN LAB L400.4150 0-5 /hpf SQUAM Normal EPI 0-5 SEEN LAB L400.4300 None Seen /hpf 0 Normal BACTERIA SEEN LAB L400.4350 <or=2+ /hpf 0 Normal MUCUS, URINE SEEN Performed By: #### L400.0001 #### [facility] [address] [place], [address] COMPREHENSIVE METABOLIC Collected: 10/08/2017 Status: F Source: [place] [facility] 7:00 PM [facility] REPOSITORY TYPE CODE TESTS RESULT OUT OF RANGE REFERENCE UNITS LAB L501.0100 74-106 mg/dL Normal GLU 104 Result Comment: Fasting Glucose result from 100 to 125 mg/dL suggests IMPAIRED HOMEOSTASIS per A.D.A. criteria. Please note revised GLUCOSE reference range effective 2017. LAB L501.1000 7-18 mg/dL Normal BUN 10 LAB L501.1100 0.70-1.30 mg/dL Normal CREAT,SERUM 0.92 Result Comment: The validity of the calculated GFR AND GFRAA in patients over 70 years has not been determined. Clinical correlation is essential. LAB L501.1110 >60 mL/min Normal EST GFR 96 Result Comment: Non- GFR Calc LAB L501.1115 >60 mL/min Normal EST GFR - AA 116 Result Comment: GFR Calc LAB L501.1255 ml/min Normal Estimated CRCL 117.00 LAB L501.1300 10-20 RATIO BUN/CRE Normal 10.9 LAB L501.1500 6.4-8. g/dL 2 T PROT Normal 7.5 LAB L501.1800 3.2-5. g/dL 0 ALB Normal 3.4 LAB L501.1950 2.2-4. g/dL 2 GLOB Normal 4.1 LAB L501.2000 0.9-2. RATIO Low 4 A/G 0.8 LAB L501.2200 8.5-10 mg/dL .1 CA Normal 8.6 LAB L501.4100 15-37 U/L AST Normal 21 LAB L501.4305 45-117 U/L ALK P Normal 73 LAB L501.4405 16-61 U/L ALT Normal 37 LAB L501.4600 0.20-1 mg/dL .00 T BILI Normal 0.50 LAB L501.5300 136-14 mmol/L 5 NA Normal 139 LAB L501.5600 3.5-5. mmol/L 1 K Normal 4.2 LAB L501.5900 98-107 mmol/L CL Normal 105 LAB L501.6100 21.0-3 mmol/L 2.0 CO2 Normal 27.0 LAB L501.6200 5-15 GAP Normal 7 Performed By: #### L500.4050 #### [facility] [address] [place], [address] CNPN Observed: 08/01/2017 Status: COMPLETED Source: [place] 12:00 AM [facility] REPOSITORY Telephone (UROLST) BRYANDONNELL ([id number]) 1975 M Date Time Provider Department 08/01/17 RANJIT PENG ([facility]) UROLST During your visit today, we recorded the following information about you: Ranjit Peng ([facility]) 08/01/2017 12:36 PM Signed I contacted the patients insurance company and I will delay the request of the CT until 01/[address] was I 01/2017. Renée Weathers LPN 08/01/2017 2:37 PM Signed Left detailed message on identified voice mail for patient that ct will be delayed until January. Pt will need to call to schedule. Sheila Huntley 08/06/2017 2:50 PM Signed patient understood message. Allergies As of Date: 08/01/2017 Noted Allergy Reaction PENICILLINS 10/16/2011 16 - Unknown Date Reviewed: 02/18/2017 Reviewed by: Jing Rogers Ma - Fully Assessed Reason for Visit: Insurance Inquiry [1462] Prescriptions as of 08/01/2017 Sig: ALBUTEROL SULFATE HFA 90 MCG/* Inhale 2 Puffs as instructed * ALBUTEROL 90 MCG/ACTUATION AE* Inhale 1-2 Puffs as instructe* Problem List As Of Date 08/01/2017 Noted Resolved Right flank pain [R10.9] INVALID FOR* Renal cyst, right [N28.1] INVALID FOR* Right renal mass [N28.89] INVALID FOR* Mild intermittent asthma without complication [*INVALID FOR* Tobacco use [Z72.0] INVALID FOR* Morbid obesity (HCC) [E66.01] INVALID FOR* H/O idiopathic seizure [Z87.898] INVALID FOR* Encounter Status:Closed by RENÉE WEATHERS LPN on 08/01/17 ALLERGIES ALLERGIES DATE TYPE / CODE NAME / CODE REACTION SEVERITY SOURCE 04/03/2018 Drug Penicillins/ Unknown Unknown [facility] Allergy/4160 [id number]([facility] [address](SNOMED XNORM) Repository CT) ENCOUNTERS ENCOUNTERS ADMIT/DISCHARGE ACCOUNT NUMBER ADMITTING ENCOUNTER LOCATION SOURCE CLASS 04/20/[id number] [facility] ding:US Repository 04/07/[id number] [facility] ding:LAB Repository 04/03/2018/04/03/19 [id number] Emergency [address] ding:ED Repository 04/01/2018/04/02/19 [id number] Emergency [address] ding:ED Repository 01/14/2018/01/15/20 [id number] Emergency [address] ding:ED Repository 12/10/2017/12/11/19 [id number] Emergency BBuilding:[address] Repository 10/26/2017/10/28/19 [id number] Emergency [address] ding:ED Repository 10/08/2017/10/09/19 [id number] Emergency [address] ding:ED Repository PAYERS PAYERS ENCOUNTER GUARANTOR PAYER SUBSCRIBER SOURCE 04/20/2018 DONNELL NICOLE Insurance:AETNAPolicy [facility] [place] Number: [id number] Hospital [address]Tqc: 330 [id number] Repository [phone] () Date:0371-76-81PV [address] [address]WX: 04/20/2018 Secondary NOT GIVENUNK [place] Insurance:SELF PAY [facility] Number: Effective Repository Date:2018-04-07 04/07/2018 DONNELL AD[address] Insurance:AETNAPolicy [facility] [place] Number: [id number] Hospital [address]Rdi: 330 [id number] Repository [phone] () Date:[id number] [address] [address]EK: 04/07/2018 Secondary NOT GIVENUNK [place] Insurance:SELF PAY [facility] Number: Effective Repository Date:2018-04-07 04/03/2018 DONNELL BOB [place] Insurance:AETNAPolicy [place]: [place] Number: [id number] Hospital [address]Hwz: 330 [id number] Repository [phone] () Date:[id number] [address] [place] [address]UF: 04/03/2018 Secondary NOT GIVENUNK [place] Insurance:SELF PAY [facility] Number: Effective Repository Date:2018-04-03 04/01/2018 DONNELL Rodney [id number] [place] Insurance:AETNAPolicy [facility] [place] Number: [id number] Hospital [address]Mog: 330 [id number] Repository [phone] () Date:[id number] [address] [address]CK: 04/01/2018 Secondary NOT GIVENUNK [place] Insurance:SELF PAY [facility] Number: Effective Repository Date:2018-04-01 01/14/2018 DONNELL [id number] [place] Insurance:CIGNAPolicy [place]: [place] Number: [id number] Hospital [address]Dfi: 330 [id number] Repository [phone] () Date:[id number] [address], [place] [address]CV: 01/14/2018 Secondary NOT GIVENUNK [place] Insurance:SELF PAY [facility] Number: Effective Repository Date:2018-01-14 12/10/2017 DONNELL Russo Primary [facility]CIGNA WELLSDOB: [facility] INSCOPolicy Number: [id number] Repository [facility] [id number] [place], [place] Date:2017-03-31 - [place], [place] [address]Sic: [phone] [phone]: () Name:[facility] [address] [facility] [address], [place] ()Tel: [phone]: [phone] 10/26/2017 DONNELL Russo Primary DONNELL L Rashaun [id number] [facility] Insurance:CIGNAPolicy [facility] [place] Number: [id number] Hospital [address]Mts: (689) [id number] Repository [phone] () Date:[id number] [address], [place] [address]WQ: 10/26/2017 Secondary NOT GIVENUNK [place] Insurance:SELF PAY [facility] Number: Effective Repository Date:2017-10-26 10/08/2017 DONNELL Karan LINTONSANDHYA Russo Rashaun [id number] [facility] Insurance:CIGNAPolicy [place]OB: [place] Number: [id number] Hospital [address]Dgy: [phone]) [id number] Repository [phone] () Date:4958-56-96AS [address], [place] [address]BV: 10/08/2017 Secondary NOT GIVENUNK [place] Insurance:SELF PAY [facility] Number: Effective Repository Date:2017-10-08
== END ==
LOC: US 09:23
PROVIDERS: Referring Provider Urology; Visit Provider Urology
DX: N50.9 Disorder of male genital organs, unspecified (principal)
CPT/HCPCS: 76870; 93976

== ENCOUNTER 2018-05-20 08:55 | Day surgery (SDC) | payer OTHER, SELFPAY ==
--- NOTE | 2018-05-19 15:50 | HP.PCM_ITS ---
History and Physical Date of Admission: 05/20/18 42 yo male who had left testicular pain u/s with possible mass, given antibiotics on follow up u/s mass in the upper pole of testicle seen on exam mass is tender, feels like inflammations but mass still present tumor markers were sent and are negative ALLERGIES: penicillin MEDICATIONS: Levaquin Albuterol Sulfate Hydrocodone Compound PSH: None PSH Notes: h/o partial nephrectomy NON- PSH: Pneumococcal Vaccine Admin Shoulder Surgery (Unspecified) PMH: Orchitis - 04/07/2018 Frequency of micturition Generalized abdominal pain Nocturia Urgency of urination NON- PMH: Abnormal radiologic findings on diagnostic imaging of left testicle - 04/07/2018 Mild intermittent asthma, uncomplicated Immunizations: None FAMILY HISTORY: None SOCIAL HISTORY: Marital Status: Preferred Language: Romanian; Ethnicity: Not Or ; Race: Other Race Current Smoking Status: Patient smokes. Smokes 2 packs per day. Tobacco Use Assessment Completed: Used Tobacco in last 30 days? Does not use smokeless tobacco. Has never drank. Does not use drugs. Drinks 4+ caffeinated drinks per day. Has not had a blood transfusion. REVIEW OF SYSTEMS: Constitutional: Patient denies fever, chills, weight loss, and weight gain. Genitourinary: Patient reports frequent urination and get up at night to void. Patient denies urinary retention, leakage of urine, painful urination, blood in the urine, frequent uti's, history of stones, difficulty starting stream, weak stream/scanty, and bedwetting. Musculoskeletal: Patient reports back pain. Patient denies sore muscles and gout. Hematologic/Lymphatic: Patient denies pulmonary embolism, swollen lymph nodes, blood transfusion, deep venous thrombosis, and abnormal bleeding. Notes: Updated from previous visit 04/07/2018 with review from patient as noted above. VITAL SIGNS: 04/23/2018 09:27 AM Weight 345 lb / 156.49 kg Height 74 in / 187.96 cm BP 142/84 mmHg BMI 44.3 kg/m? - BMI Counseling was provided. PHYSICAL EXAMINATION: Scrotum: No lesions. No edema. No cysts. No warts. Epididymides: Right: no spermatocele, no masses, no cysts, no tenderness, no induration, no enlargement. Left: no spermatocele, no masses, no cysts, no tenderness, no induration, no enlargement. Testes: Tender left testis. Solid mass left testis. No swelling, no enlargement left testis. No tenderness, no swelling, no enlargement right testis. Normal location left testis. Normal location right testis. No cyst, no varicocele, no hydrocele left testis. No mass, no cyst, no varicocele, no hydrocele right testis. Urethral Meatus: Normal size. No lesion, no wart, no discharge, no polyp. Normal location. Penis: Circumcised, no warts, no cracks. No dorsal Peyronie's plaques, no left corporal Peyronie's plaques, no right corporal Peyronie's plaques, no scarring, no warts. No balanitis, no meatal stenosis. MULTI-SYSTEM PHYSICAL EXAMINATION: Constitutional: Well-nourished. No physical deformities. Normally developed. Good grooming. Neck: Neck symmetrical, not swollen. Normal tracheal position. Respiratory: No labored breathing, no use of accessory muscles. Cardiovascular: Normal temperature, normal extremity pulses, no swelling, no varicosities. Lymphatic: No enlargement of neck, axillae, groin. Skin: No paleness, no jaundice, no cyanosis. No lesion, no ulcer, no rash. Neurologic / Psychiatric: Oriented to time, oriented to place, oriented to person. No depression, no anxiety, no agitation. Gastrointestinal: No mass, no tenderness, no rigidity, non obese abdomen. Eyes: Normal conjunctivae. Normal eyelids. Ears, Nose, Mouth, and Throat: Left ear no scars, no lesions, no masses. Right ear no scars, no lesions, no masses. Nose no scars, no lesions, no masses. Normal hearing. Normal lips. Musculoskeletal: Normal gait and station of head and neck. PAST DATA REVIEWED: Source Of History: Patient Lab Test Review: PSA Records Review: Previous Patient Records Urine Test Review: Urinalysis PROCEDURES: Urinalysis - 47859 Dipstick Dipstick Cont'd Specimen: Voided Blood: Trace Appearance: Clear pH: 5.0 Color: Yellow Protein: Neg Glucose: Normal Urobilinogen: Neg Bilirubin: Neg Nitrites: Neg Ketones: Neg Leukocyte Esterase: Neg ASSESSMENT: ICD-10 Details 2 : Orchitis - N45.2 1 NON-: Abnormal radiologic findings on diagnostic imaging of left testicle - R93.812 Stable PLAN: Document Letter(s): Created for Patient: Clinical Summary Notes: I really do not believe this mass is malignance however discuss with patient of options radical orchiectomy or exploration and removal of mass and frozen section. if on frozen ++ cancer then would do complete radical orchiectomy if benign then leave testicle.
[2018-05-20] VITALS (7 sets, daily range): BP systolic 113–142; BP diastolic 61–85; PULSE 78–94; RESP 16–18; TEMP 36.4–38; O2SAT 92–97; BMI 46.0
--- NOTE | 2018-05-20 | TESBX_PTH ---
PATIENT: MERLINE ADAMS LOC: [facility] [place] U#:[id number] AGE/SX: 42/M ROOM: RE05/20/[address]: Dr. Colin Meyer MD : 1975 BED: DIS: 05/20/2018 SPEC #: [id number] RECD: 05/20/18 13:07 STATUS: GISELA GREGG #: [id number] JUDITH: 05/20/18 00:[address]: Colin Meyer DEPT: SURGICAL PATHOLOGY RECD BY: Thais Bullock ENTERED: 05/20/18 13:45 SP TYPE: TESTI BX OT DR: Mandy Primary Care Phys Tissues: TESTICULAR BIOPSY Procedures: PAS with Diastase (control) Elastin Stain (control) Frozen Section (charge) Trichrome (control) Special Stain Group II PAS Stain (control) Surgery Specimen Level IV Retic (control) Iron Stain (control) HEADER OPERATION: Left scrotal exploration, left partial orchiectomy PRE-OP DIAGNOSIS: Left testicular mass TISSUE SUBMITTED: Left testicular mass - bivalve tissue, sent to lab for frozen at 1302 FROZEN SECTION DIAGNOSIS Left testicular mass, bivalve tissue: Normal testicular tissue with focal area of hyalinized seminiferous tubules and unremarkable epididymal tissue. SJ:ale 05/20/18 MICROSCOPIC DIAGNOSIS Left testicular mass, biopsy: Marked hypospermatogenesis. Peritubular fibrosis. Focal tubular sclerosis/hyalinization. No evidence of malignancy. See microscopic description and comment. AM:ale 05/21/18 COMMENT The above changes may be seen in testicular tissue subjected to trauma. Several of the above changes are also seen in cryptorchidism. However, the entire testes are not available for review. Clinical correlation is suggested. Case has been reviewed in consultation with Dr. Alvarado who concurs with the above diagnosis. IDC:HAROON MICROSCOPIC DESCRIPTION Sections show testicular parenchyma with retained islands of Leydig cells and peritubular fibrosis. There is marked decrease in spermatogenesis. Focally, the tubules are sclerosed/hyalinized. Rare granular cells of Sertoli type are noted. Iron stain with matched control is positive for iron deposition in area involved. Reticulin and trichrome stains highlight the area of fibrosis. Elastin stain reveals several vessels with occlusive changes/fibroplasia. PAS stain highlights thickened peritubular tissue. PASD stain does not reveal accumulation of abnormal proteins. GROSS DESCRIPTION Received fresh for frozen section diagnosis labeled with the patient's name is a specimen designated left testicular mass, bivalve tissue. The specimen consists of an ovoid brownish area and a focal archibald area measuring 3 x 2 x 1.3 cm. The brownish round area measures 2 x 2 x 1.3 cm and the archibald area measures 1 x 1 x 0.5 cm. A section including both brownish area and archibald area is submitted for frozen section diagnosis. The entire specimen is submitted in three cassettes as follows: 1 - frozen section, 2 & 3 - rest of the specimen. / HAROON:ale 05/20/18 TC:5 CPT: 17997, 26670 x6, 05892
[2018-05-20] MEDS: Cefazolin 2 GM in 0.9% Normal Saline 100 ML IV (12:23)
--- NOTE | 2018-05-20 12:38 | DCINST_ITS ---
Discharge Diet: Light diet - advance as tolerated Discharge Activity: Return to Normal Activity Call your doctor if your incision/area has: Sudden Increased Bleeding Call your doctor if you observe: Fever of 101 or Higher Instructions: Discharge Instructions for Orchiectomy Allergies/Adverse Reactions: Allergies Penicillins Allergy (Verified 05/20/18 09:18) Unknown Medications to take at Discharge Albuterol IH (ProAir) [Proair Hfa (SP)Vent Pts] 1 - 2 puff INHALATION Q6H PRN PRN 05/13/18 Acetaminophen [Tylenol Extra Strength] 500 mg PO Q4H PRN PRN #20 tablet 05/20/18 Ciprofloxacin [Cipro] 500 mg PO BID #10 tablet 05/20/18 Ibuprofen 600 mg PO Q6H PRN PRN #20 tablet 05/20/18 The following prescriptions were given: Acetaminophen [Tylenol Extra Strength] 500 mg PO Q4H PRN PRN #20 tablet PRN Reason: Pain Ibuprofen 600 mg PO Q6H PRN PRN #20 tablet PRN Reason: Pain Ciprofloxacin [Cipro] 500 mg PO BID #10 tablet Primary Care Physician: Care Physician,No Primary [Primary Care Provider] - Test Results: Test results from this visit will be discussed in further detail at your follow- up appointment, if applicable. Please Follow Up With: Colin Meyer MD When: in 2 weeks, please call to make an appointment.
[2018-05-20] MEDS: Bupivacaine Mpf 0.5% 30 ML VIAL (12:47)
--- NOTE | 2018-05-20 13:28 | OP.PCM_ITS ---
Report of Operation Date of Procedure: 05/20/18 Pre-Operative Diagnosis: Left upper pole testicular mass by ultrasound Post-Operative Diagnosis: Frozen section no tumor mass removed Surgery/Procedure Performed:: Scrotal exploration and partial orchiectomy in the left Description of Surgical Findings:: 42-year-old male who presented the office with a small mass in the upper pole of the left testicle did not seem really consistent with a testicular malignancy tumor markers remain are negative the mass is not been getting bigger in size given the possibility of testicular cancer recommended we do explore exploration and removal of the mass and send it for pathology logical evaluation. 42 male taken back to the operating room with smooth induction of general anesthesia he was placed supine on the table the scrotum and testicles were s haved prepped and draped in usual sterile fashion, made a 3 cm incision in the midline raphae deliver the left testicle on palpation he can feel a hardness in the upper pole of the testicle but it was, spongy hard and is not real firm hardness no obvious size of the mass I then dissected around circumferentially and essentially dissected the upper pole of the left testicle where the mass was at bivalve the mass really could not see anything to the firm firmness this was sent off to the pathologist and the pathologist reported that there was no testicular cancer and the mass found seen handed off I then did an ultrasound of the remaining testicle there is no tumors within the remaining testicle. I then reconstructed the resection site running a chromic stitch along the resection site along the vessels and closing of the tunica over the sperm tubules. After closing this up then I put the testicle back in the scrotum I closed the incision with 2 layers patient's anesthetic was reversed we will talk to the family there was no cancer in the pathology remaining testicle was left in place and follow-up in a few weeks for checkup. Type of Anesthesia:: General Drains: none - Admit VTE Documentation VTE Present on Admission: No
--- NOTE | 2018-05-20 13:48 | US_ITS ---
PROCEDURE: Intraoperative ultrasound for resection of the left testicle. DATE OF EXAMINATION: May 20, 2018. INDICATION: Male, 42 years old. Partial left orchiectomy. Intraoperative ultrasound was utilized by the urologist for partial left orchiectomy. US/Other Unlisted US Procedure IMPRESSION: Ultrasonic guidance for partial left orchiectomy. Electronically Signed: Efraín Titus MD at 15:46 EST , Service support ,
== END 2018-05-20 15:17 | disposition home or self-care (01) ==
LOC: SDC 08:59 → AC 09:00
PROVIDERS: Referring Provider Urology; Visit Provider Urology
PROC: (CPT 54522; principal; 2018-05-20 11:45)
DX: N50.89 Other specified disorders of the male genital organs (principal); J45.20 Mild intermittent asthma, uncomplicated; F17.200 Nicotine dependence, unspecified, uncomplicated; Z85.528 Personal history of other malignant neoplasm of kidney
CPT/HCPCS: 54522; 76999; 88305; 88307; 88313; 88331; J7120; J2405

== ENCOUNTER 2020-05-29 21:08 | Emergency (ER) | payer OTHER, SELFPAY ==
[2018-05-20 09:21] VITALS: BMI 46.0
[2020-05-29 21:09] VITALS: BP 151/81; PULSE 81; RESP 18; TEMP 36.1; O2SAT 98; BMI 45.5
--- NOTE | 2020-05-29 21:26 | ED.VIS.GEN ---
History of Present Illness Chief Complaint: Rash Narrative: Patient has 2 complaints. He has a rash on his back for over a month, yesterday he started having submandibular pain on the left. No sore throat. No difficulty swallowing. No voice change. No shortness of breath. Past medical history: History of kidney cancer Medications: None Social history: Noncontributory Review of systems: All systems negative except as indicated General: Denies: Fever Eyes: Denies: Visual changes - bilaterally ENT: Left submandibular pain Cardiovascular: Denies: Chest pain Respiratory: Denies: Dyspnea, Cough Gastrointestinal: Denies: Abdominal pain, Nausea, Vomiting Genitourinary: Denies: Dysuria Musculoskeletal: Denies: Myalgias Skin: Rash on his back it is not itching Neurological: Denies: Headache, no focal weakness Psych: Reports: negative Hematologic: Denies: Easy bruising, Easy bleeding Physical exam General: Well nourished, Well developed, No Acute Distress, obese Head: Normocephalic, Atraumatic Eyes: Conjunctiva not pale ENT: Moist mucous membranes. Normal posterior pharynx. No erythema or exudate. Normal soft palate. Normal voice. He has swelling of the left submandibular gland consistent with sialoadenitis. Neck: Supple, Nontender, No lymphadenopathy Cardiovascular: Regular rate, Regular rhythm Respiratory: No distress, CTA bilaterally Abdomen: Soft, Nontender, Nondistended Back: Nontender, Normal Inspection. Negative for: CVA tenderness Extremities: Nontender, No edema Skin: There is a scaly eczematous rash on his back, it is blanching no signs of cellulitis. Neurological: Alert, Normal Strength, Normal Sensation Psychological: Normal affect Past Medical History - Allergies and Home Meds Allergies/Adverse Reactions: Allergies Penicillins Allergy (Verified 05/29/20 21:10) Unknown Primary Care Physician: Care Physician,No Primary [Primary Care Provider] - Smoking Status: Current every day smoker Physical Exam Vital Signs/Narrative: Vital Signs Temp Pulse Resp BP Pulse Ox 05/29/20 21:09 97 F L 81 18 151/81 H 98 Diagnostic/Tx/Re-eval - Medical Decision Making Patient will be treated with antibiotics I will set him up with ENT tomorrow he is told if he worsens he needs to come back. He understands this. Otherwise he has an eczematous rash on his back I will treat with steroid cream ED Disposition - Plan for ED Patient: Disposition: Home or Assisted Living Diagnosis: Sialoadenitis, Dermatitis Instructions: ED Salivary Gland Infection Prescriptions: Clindamycin [Cleocin] 300 mg PO TID #60 cap Transmission Status: Pending to [facility] Triamcinolone 0.025% Cream [Kenalog] 1 applic TOPICAL BID #1 tube Transmission Status: Pending to [facility] Referrals: Care Physician,No Primary [Primary Care Provider] -
[2020-05-29] MEDS: Clindamycin HCl 150 MG Capsule 450 MG PO (21:47)
[2020-05-29 21:48] VITALS: PULSE 76; RESP 18; O2SAT 99
== END 2020-05-29 21:49 | disposition home or self-care (01) ==
LOC: ED 21:35
PROVIDERS: Emergency Provider Emergency Medicine
DX: K11.20 Sialoadenitis, unspecified (principal); L30.9 Dermatitis, unspecified; E66.9 Obesity, unspecified; Z85.528 Personal history of other malignant neoplasm of kidney; F17.200 Nicotine dependence, unspecified, uncomplicated
CPT/HCPCS: 99283

== ENCOUNTER 2021-01-13 02:04 | Emergency (ER) | payer OTHER, SELFPAY ==
[2021-01-13 02:05] VITALS: BP 147/82; PULSE 89; RESP 20; TEMP 36.8; O2SAT 98; BMI 47.4
--- NOTE | 2021-01-13 02:36 | RAD_ITS ---
STUDY: X-RAY CHEST REASON FOR EXAM: Male, 45 years old. cough TECHNIQUE: Single AP portable view of the chest. COMPARISON: None. FINDINGS: The lungs are clear and expanded. There is no demonstrated pleural abnormality. Normal size heart. Normal mediastinum and clark. Normal visualized pulmonary arteries. Normal visualized aortic arch and descending thoracic aorta. Normal visualized thoracic spine. Normal visualized ribs, clavicles, and shoulders. There is no demonstrated abnormality of the visualized soft tissue structures of the upper abdomen. RAD/Chest 1 View (Portable) IMPRESSION: Normal x-ray examination of the chest. Electronically Signed: Ricardo Mckeon DO at 3:26 EDT Tel , Service support ,
[2021-01-13 02:39] LABS: Absolute Lymphocyte Count 2.33 X10^3/uL (0.83-4.51); Absolute Neutrophil Count 7.4 X10^3/uL (2.0-7.7); Basophil# 0.07 X10^3/uL; Basophil% 0.6 % (0-1); Eosinophil# 0.37 X10^3/uL; Eosinophils% 3.3 % (0-5); Hematocrit 46.1 % (40-54); Hemoglobin 16.4 g/dL (13.0-16.5); Lymphocyte # 2.33 X10^3/ul (0.83-4.51); Lymphocyte % 20.5 % (19-41); Mean Corp Hgb Conc 35.6 g/dL (32-36); Mean Corpuscular Hgb 32.7 pg (27.0-32.0); Mean Platelet Vol. 10.4 fl (6.2-12.0); Monocyte# 1.08 X10^3/uL; Monocyte% 9.5 % (0-10); NRBC Flagged by Analyzer 0 % (0-5); Neutrophil # 7.43 X10^3/uL (2.7-7.7); Neutrophil % 65.5 % (47-70); Platelet Count 198 K/mm3 (150-450); RBC Distribution Width SD 43.6 fl (35.1-43.9); Red Blood Count 5.01 M/mm3 (4.6-6.2); White Blood Count 11.4 K/mm3 (4.4-11.0)
--- NOTE | 2021-01-13 02:41 | EX.ED.DYSGE1 ---
HPI History of Present Illness Chief Complaint: General Illness Informant: patient Onset/Context/Timing Onset: Yesterday Current Severity: Moderate Maximum Severity: Moderate Narrative Narrative: Patient presents with symptoms including upper abdominal pain, nausea, diarrhea, body aches, chills, mild cough. He does report a lot of people at work ill with Covid. He was vaccinated. He has not noted a fever. [facility] Medical History Asthma Seizures Home Medications albuterol sulfate [Proair Hfa (SP)Vent Pts] 1 - 2 puff INHALATION Q6H PRN PRN 05/13/18 [History Last Taken Unknown] acetaminophen 500 mg PO Q4H PRN PRN #20 tablet 05/20/18 [Rx Last Taken Unknown] ibuprofen 600 mg PO Q6H PRN PRN #20 tab 05/20/18 [Rx Last Taken Unknown] clindamycin HCl 300 mg PO TID #60 cap 05/29/20 [Rx Last Taken Unknown] triamcinolone acetonide 1 applic TOPICAL BID #1 tube 05/29/20 [Rx Last Taken Unknown] Allergy/AdvReac Type Severity Reaction Status Date / Time Penicillins Allergy Unknown Verified 01/13/21 02:07 Surgical History History of partial nephrectomy Social History Smoking Status: Current every day smoker tobacco type: cigarettes ROS ROS ED Constitutional Constitutional ED: Reports chills; Denies fever(s) Eyes Eyes: Denies change in vision ENT ENT ED: Reports other Details: Decreased sense of taste ; Denies sore throat Cardiovascular Cardiovascular: Denies chest pain Respiratory/Chest Respiratory/Chest: Reports cough; Denies dyspnea Gastrointestinal Gastrointestinal: Reports abdominal pain, diarrhea and nausea; Denies vomiting Genitourinary Genitourinary ED: Denies dysuria Musculoskeletal Musculoskeletal: Reports myalgias; Denies back pain Integumentary Denies rash Neurologic Neurologic: Denies headache(s) or weakness Allergic/Immunologic Allergic/Immunologic ED: Denies urticaria EXAM Physical Exam Const Vital Signs: 01/13/21 02:05 01/13/21 02:07 01/13/21 03:00 Temperature 98.2 F 98.1 F Temperature Source Temporal Oral Pulse Rate 89 85 Respiratory Rate 20 H 20 H Respiratory Pattern Tachypnea Blood Pressure 147/82 H 129/87 H Blood Pressure Mean 103 101 Pulse Ox 98 96 Oxygen Delivery Method Room Air Room Air Positive well nourished and well developed General Appearance ED: well developed HEENT Reports normocephalic and head/scalp atraumatic Eyes PERRL and EOMs intact bilaterally Neck supple Chest Wall inspection of chest normal and palpation of chest normal Resp normal respiratory effort and clear to auscultation bilaterally Cardio regular rate and regular rhythm GI non-tender Auscultation: hypoactive bowel sounds Palpation: soft Extremity normal to inspection Neuro oriented x3 and no sensory deficits noted Sensorium / Orientation: alert Motor Exam: strength 5/5 throughout Psych mental status grossly normal Skin no rashes or lesions noted MDM MDM MDM Narrative Medical decision making narrative: Lab work, chest x-ray, Covid test obtained. Lab Data Attestation: I reviewed the patient's lab results. Labs: Laboratory Results - last 24 hr 01/13/21 01/13/21 01/13/21 02:16 02:16 02:36 WBC 11.4 H RBC 5.01 Hgb 16.4 Hct 46.1 MCV 92.0 MCH 32.7 H MCHC 35.6 RDW Std Deviation 43.6 RDW Coeff of Naresh 13.0 Plt Count 198 MPV 10.4 Immature Gran % (Auto) 0.600 Neut % (Auto) 65.5 Lymph % (Auto) 20.5 Davidson % (Auto) 9.5 Eos % (Auto) 3.3 Baso % (Auto) 0.6 Absolute Neuts (auto) 7.4 Absolute Lymphs (auto) 2.33 Nucleated RBC % 0 Sodium 136 Potassium 4.0 Chloride 104 Carbon Dioxide 28.0 Anion Gap 4 L BUN 9 Creatinine 0.98 Estim Creat Clear Calc 106.44 Est GFR (MDRD) Af Amer 106 Est GFR (MDRD) Non-Af 88 BUN/Creatinine Ratio 9.2 L Glucose 120 H Lactic Acid 1.1 Calcium 8.6 Total Bilirubin 0.50 AST 26 ALT 43 Alkaline Phosphatase 76 Total Protein 7.4 Albumin 3.1 L Globulin 4.3 H Albumin/Globulin Ratio 0.7 L Lipase 41 L Radiography Chest X-Ray - ED: 1 View, Read by ED Physician and Chronic Changes Diagnostic Testing: Clinical Impression(s) from Imaging Studies Chest X-Ray 01/13/21 02:36 IMPRESSION: Normal x-ray examination of the chest. Electronically Signed: Ricardo Mckeon DO at 3:26 EDT Tel , Service support , Treatment and Re-Evaluation Comments:: Chest x-ray per my interpretation reveals no focal infiltrate. Radiology interpretation reviewed. Lab work unremarkable other than a minimally elevated white count 11.4. No left shift. Covid swab negative. On repeat evaluation patient resting comfortably. Test results discussed with him. I did suggest that if he continues to have symptoms the next couple days he should be retested for Covid to ensure that this was not a false negative due to low viral count. My suspicion is this is another virus giving him similar symptoms. Supportive care as discussed. Discharge Plan Triage Chief Complaint: General Illness Other Complaint: Abd Pain ED Provider: Ailyn García Dx/Rx/DC Orders Clinical Impression: Viral syndrome Instructions: ED Viral Syndrome (Adult) Prescriptions: No Action albuterol sulfate [ProAir HFA] 1 PUFF inhaler 1 - 2 puff inhalation Q6H PRN PRN (Reason: Wheezing) RF: 0 acetaminophen 500 MG tablet 500 mg PO Q4H PRN PRN (Reason: Pain) Qty: 20 RF: 0 ibuprofen 600 MG tablet 600 mg PO Q6H PRN PRN (Reason: Pain) Qty: 20 RF: 0 clindamycin HCl 150 MG capsule 300 mg PO TID Qty: 60 RF: 0 triamcinolone acetonide 1 APPLIC cream 1 applic TOPICAL BID Qty: 1 RF: 0 Primary Care Provider: Care Physician,No Primary Referrals: Delia Kaiser DO [STAFF PHYSICIAN] - As Needed Care Physician,No Primary [Primary Care Provider] - Disposition Disposition: Home, Self Care
[2021-01-13 02:54] LABS: ALB/GLOB Ratio 0.7 RATIO (0.9-2.4); AST(SGOT) 26 U/L (15-37); Alanine Aminotransfer ALT/SGPT 43 U/L (16-61); Albumin, Serum 3.1 g/dL (3.2-5.0); Alkaline Phosphatase 76 U/L (45-117); Anion Gap 4 (5-15); BUN 9 mg/dL (7-18); BUN/Creat Ratio 9.2 RATIO (10-20); Calcium,Total 8.6 mg/dL (8.5-10.1); Chloride 104 mmol/L (98-107); Creatinine, Serum 0.98 mg/dL (0.70-1.30); EST Glomerular Filtration Rate 88 mL/min (>60); Est Glom Filt Rate - Afr Amer 106 mL/min (>60); Estimated Creatinine Clearance 106.44 ml/min; Globulin 4.3 g/dL (2.2-4.2); Glucose 120 mg/dL (74-106); Lipase 41 U/L (73-393); Protein, Total 7.4 g/dL (6.4-8.2); Sodium Level 136 mmol/L (136-145)
[2021-01-13 03:00] VITALS: BP 129/87; PULSE 85; RESP 20; TEMP 36.7; O2SAT 96
[2021-01-13 03:24] LABS: Lactic Acid 1.1 mmol/L (0.4-1.9)
[2021-01-13 03:39] VITALS: BP 137/85; PULSE 80; RESP 17; O2SAT 96
== END 2021-01-13 03:43 | disposition home or self-care (01) ==
PROVIDERS: Emergency Provider Emergency Medicine
DX: B34.9 Viral infection, unspecified (principal); R11.0 Nausea; R19.7 Diarrhea, unspecified; R10.10 Upper abdominal pain, unspecified; M79.10 Myalgia, unspecified site; R68.83 Chills (without fever); R05.9 Cough, unspecified; J45.909 Unspecified asthma, uncomplicated; F17.210 Nicotine dependence, cigarettes, uncomplicated
CPT/HCPCS: 71045; 80053; 83605; 83690; 85025; 87040; 87426; 99285; A4216

== ENCOUNTER 2021-07-24 21:23 | Emergency (ER) | payer OTHER, SELFPAY ==
[2021-07-24 21:24] VITALS: BP 131/96; PULSE 80; RESP 16; TEMP 36.6; O2SAT 96; BMI 46.1
--- NOTE | 2021-07-24 21:37 | EKG12_ITS ---
Test Reason : DYSRHYTHMIA Blood Pressure : / mmHG Vent. Rate : 071 BPM Atrial Rate : 071 BPM P-R Int : 180 ms QRS Dur : 090 ms QT Int : 392 ms P-R-T Axes : 072 050 062 degrees QTc Int : 425 ms Normal sinus rhythm Low voltage QRS (Limb Leads) Confirmed by DARIAN OTT, USHA ([id number]), assignment desk editor ALLAN AGUIRRE ([id number]) on 07/26/2021 9:03:51 AM Referred By: JACOBO Confirmed By:USHA FARMER MD
--- NOTE | 2021-07-24 21:39 | EX.ED.DYSGE1 ---
HPI History of Present Illness Chief Complaint: Other, Pain/Inj Detail of Chief Complaint: Pain in neck and back that started this morning Informant: patient Narrative Narrative: Patient presents to the emergency department complaint of pain is started initially in his neck and felt like it was just very tight. Pain subsequently went into the right shoulder and into his back towards his kidney. Pain is worse with deep breath. He does not feel short of breath. He denies chest pain otherwise. Denies any injury. Denies recent illness. No heart history. No history of PE or DVT. Patient denies pain radiating into the arm and denies paresthesias. PFSH PFSH Medical History Asthma Cancer Seizures Shoulder fracture, right Smoker Home Medications albuterol sulfate [Proair Hfa (SP)Vent Pts] 1 - 2 puff INHALATION Q6H PRN PRN 05/13/18 [History Last Taken Unknown] acetaminophen 500 mg PO Q4H PRN PRN #20 tablet 05/20/18 [Rx Last Taken Unknown] ibuprofen 600 mg PO Q6H PRN PRN #20 tab 05/20/18 [Rx Last Taken Unknown] clindamycin HCl 300 mg PO TID #60 cap 05/29/20 [Rx Last Taken Unknown] triamcinolone acetonide 1 applic TOPICAL BID #1 tube 05/29/20 [Rx Last Taken Unknown] cyclobenzaprine 10 mg PO TID PRN #20 tablet 07/24/21 [Rx Last Taken Unknown] hydrocodone-acetaminophen 1 tab PO Q4H PRN PRN 2 Days #14 tablet 07/24/21 [Rx Last Taken Unknown] naproxen 500 mg PO BID #14 tab 07/24/21 [Rx Last Taken Unknown] Allergy/AdvReac Type Severity Reaction Status Date / Time Penicillins Allergy Unknown Verified 07/24/21 21:28 Surgical History History of partial nephrectomy Social History Smoking Status: Current every day smoker tobacco type: cigarettes ROS ROS ED Constitutional Constitutional ED: Reports systems reviewed and no addt'l complaints, except as documented; Denies body ache(s), change in weight or chills Eyes Eyes: Denies acute decrease in peripheral vision, change in vision, double vision or loss of vision ENT ENT ED: Reports none; Denies ear pain, lip swelling, loss taste/smell, neck pain, otalgia or sore throat Cardiovascular Cardiovascular: Reports none; Denies abdominal pain, chest pain with activity, leg edema, lightheadedness, palpitations, rapid heart rate or syncope Respiratory/Chest Respiratory/Chest: Reports none; Denies change in mental status, dry cough, dyspnea, hemoptysis, shortness of breath at rest or shortness of breath with exertion Gastrointestinal Gastrointestinal: Reports none; Denies abdominal pain, change in stool character, diarrhea, hematemesis, hematochezia, melena, rectal bleeding or vomiting Genitourinary Genitourinary ED: Reports none; Denies abdominal discomfort, anuria, dysuria, genital pain or polyuria Musculoskeletal Musculoskeletal: Reports none, back pain and neck pain; Denies arthralgias, difficulty walking, extremity pain, muscle weakness or myalgias Integumentary Reports none; Denies abscess or rash Neurologic Neurologic: Reports none; Denies abnormal gait, confusion, focal weakness, frequent falls, headache(s), loss of vision, numbness, paresthesias, radicular pain, vertigo or weakness Psychiatric Psychiatric: Reports systems reviewed and no addt'l complaints, except as documented and none; Denies behavioral changes, confusion, difficulty concentrating, hallucinations, suicidal ideation, tactile hallucinations or visual hallucinations Endocrine Endocrinology: Denies none, cold intolerance, excessive sweating, fatigue or heat intolerance Hematologic/Lymphatic Hematologic/Lymphatic: Reports none; Denies anemia, easy bleeding or easy bruising Allergic/Immunologic Allergic/Immunologic ED: Denies as per HPI, none, lip swelling, mouth swelling, throat swelling, tongue swelling or hives EXAM Physical Exam Const Vital Signs: 07/24/21 21:24 07/24/21 22:29 Temperature 97.9 F Temperature Source Temporal Pulse Rate 80 Respiratory Rate 16 Respiratory Effort Normal Respiratory Pattern Normal Blood Pressure 131/96 H Blood Pressure Mean 107 Pulse Ox 96 Oxygen Delivery Method Room Air Positive well nourished and well developed General Appearance ED: well developed and NAD HEENT Reports TM's clear and moist mucous membranes normocephalic and atraumatic; Negative for trauma or tenderness Tympanic Membrane ED: Yes TM's clear Eyes PERRL and EOMs intact bilaterally General Eye ED: Negative for pale conjunctiva or scleral icterus Neck no lymphadenopathy, supple and no JVD Neck Narrative: Patient has tenderness palpation over the right cervical paraspinal musculature and right trapezius that seems to reproduce his pain. General: tenderness Chest Wall inspection of chest normal and palpation of chest normal Chest: Negative for tenderness Resp normal respiratory effort and clear to auscultation bilaterally Effort and Inspection: Negative for respiratory distress or pain with movement Auscultation: Negative for rhonchi, wheezes or diminished lung sounds Cardio regular rate, regular rhythm, S1 normal heart sound, S2 normal heart sound and no murmurs Peripheral Pulses: pulses 2+ throughout GI normal to inspection, nondistended, normoactive bowel sounds, soft to palpation, non-tender, non-distended and no masses Back/Spine no CVA tenderness and no thoracic nor lumbar tenderness Back/Spine Narrative: Patient has tenderness to palpation over the right thoracic paraspinal musculature that seems to reproduce his pain. Extremity normal to inspection General Extremety ED: Negative for edema General Extremity: Negative for edema Neuro oriented x3, CN's II-XII intact bilaterally, no sensory deficits noted and gait normal Sensorium / Orientation: awake, alert, oriented to person, oriented to place and oriented to time Motor Exam: strength 5/5 throughout and strength abnormal Psych mental status grossly normal Skin no rashes or lesions noted and no wounds MDM MDM MDM Narrative Medical decision making narrative: Patient had an IV line Hep-Lock established on arrival. He was medicated with morphine, Norflex, and Zofran. Patient had an EKG that was unremarkable as well as a D-dimer that was normal. Patient had a chest x-ray that was normal. This point I suspect likely musculoskeletal pain. Patient will be given a prescription for Naprosyn, Flexeril, [place] for pain. Advised to follow-up with primary care physician in 3 to 5 days. Lab Data Labs: Laboratory Results - last 24 hr 07/24/21 21:53 D-Dimer Quant (PE/DVT) < 0.27 L Radiography Chest X-Ray - ED: 1 View Diagnostic Testing: Clinical Impression(s) from Imaging Studies Chest X-Ray 07/24/21 22:05 IMPRESSION: No acute cardiopulmonary disease. Electronically Signed: Fredo Loja MD at 22:24 EDT , 1 view chest x-ray obtained interpreted by myself as no acute disease process. Radiologist in agreement. EKG Initial EKG: Attestation: I personally reviewed and interpreted this EKG as follows: Comments: Sinus rhythm with a ventricular rate of 71 bpm with no acute ST segment changes. Discharge Plan Triage Chief Complaint: Other, Pain/Inj ED Provider: Tyson Conn Dx/Rx/DC Orders Clinical Impression: Acute neck pain, Back pain Instructions: ED Back Pain (Acute or Chronic), ED Neck Pain Prescriptions: New cyclobenzaprine [cyclobenzaprine] 10 MG tablet 10 mg PO TID PRN (Reason: Muscle Spasm) Qty: 20 RF: 0 hydrocodone-acetaminophen [hydrocodone-acetaminophen] 1 TABLET tablet 1 tab PO Q4H PRN PRN (Reason: Pain) 2 Days Qty: 14 RF: 0 naproxen 500 MG tablet 500 mg PO BID Qty: 14 RF: 0 No Action albuterol sulfate [ProAir HFA] 1 PUFF inhaler 1 - 2 puff inhalation Q6H PRN PRN (Reason: Wheezing) RF: 0 acetaminophen 500 MG tablet 500 mg PO Q4H PRN PRN (Reason: Pain) Qty: 20 RF: 0 ibuprofen 600 MG tablet 600 mg PO Q6H PRN PRN (Reason: Pain) Qty: 20 RF: 0 clindamycin HCl 150 MG capsule 300 mg PO TID Qty: 60 RF: 0 triamcinolone acetonide 1 APPLIC cream 1 applic TOPICAL BID Qty: 1 RF: 0 Primary Care Provider: Care Physician,No Primary Referrals: Caio Asher MD [STAFF PHYSICIAN] - 3-5 Days Care Physician,No Primary [Primary Care Provider] - Disposition Disposition: Home, Self Care
--- NOTE | 2021-07-24 22:05 | RAD_ITS ---
INDICATION: pleuritic back pain EXAMINATION/TECHNIQUE: X-RAY - XR Chest 1 View COMPARISON: 01/13/2021 FINDINGS: LINES/DEVICES: None. LUNGS: No consolidation, edema or effusion. No pneumothorax. MEDIASTINUM AND CARDIOVASCULAR STRUCTURES: Cardiac silhouette not enlarged. Central airways and mediastinal contour are unremarkable. BONES AND SOFT TISSUES: Unremarkable. RAD/Chest 1 View (Portable) IMPRESSION: No acute cardiopulmonary disease. Electronically Signed: Fredo Loja MD at 22:24 EDT ,
[2021-07-24] MEDS: Orphenadrine 60 MG/2 ML Ampul IM (22:06)
[2021-07-24] MEDS: Morphine 4 MG/ML Syringe IM (22:06)
[2021-07-24] MEDS: Ondansetron 4 MG/2 ML Vial IM (22:06)
[2021-07-24 22:24] LABS: D-Dimer Quantitative (DVT/PE) < 0.27 FEU/ug/m (0.27-0.49)
[2021-07-24 22:53] VITALS: BP 165/75; PULSE 75; RESP 16; O2SAT 95
== END 2021-07-24 22:54 | disposition home or self-care (01) ==
PROVIDERS: Emergency Provider Emergency Medicine; Visit Provider Emergency Medicine
DX: M54.2 Cervicalgia (principal); G40.909 Epilepsy, unspecified, not intractable, without status epilepticus; F17.210 Nicotine dependence, cigarettes, uncomplicated; J45.909 Unspecified asthma, uncomplicated; Z79.899 Other long term (current) drug therapy; M54.9 Dorsalgia, unspecified
CPT/HCPCS: 71045; 85379; 93005; 96372; 99283; A4216; J2405

== ENCOUNTER 2021-12-10 07:14 | Emergency (ER) | payer OTHER, SELFPAY ==
[2021-12-10 07:15] VITALS: BP 153/79; PULSE 84; RESP 20; TEMP 36.6; O2SAT 97; BMI 46.1
--- NOTE | 2021-12-10 08:25 | EX.ED.DYSGE1 ---
HPI History of Present Illness Chief Complaint: Fall Informant: patient Narrative Narrative: Patient is a 46-year-old male with history of seizure disorder and COPD presenting with right leg pain after a fall. Patient states has been having issues with numbness going down into his right leg for some time. He has an appointment to see a spine doctor at [facility] on the of this month. He states he had another episode where his leg became numb and this caused him to fall to the ground. He twisted his knee and fell on it. He is now having pain in his right knee and hip. Currently denies any numbness or tingling. No other complaints at this time. Did not hit his head. No other injuries reported. PFSH PFSH Medical History Asthma Cancer COPD (chronic obstructive pulmonary disease) Seizures Shoulder fracture, right Smoker Home Medications albuterol sulfate 90 mcg/actuation aerosol inhaler (ProAir HFA) 1 - 2 puff inhalation Q6H PRN PRN Wheezing 05/13/18 [History Last Taken Unknown] clindamycin HCl 150 mg capsule 300 mg PO TID #60 caps 05/29/20 [Rx Last Taken Unknown] ibuprofen 600 mg tablet 600 mg PO Q6H PRN PRN Pain Score 1-10/10 #20 tabs 12/10/21 [Rx Last Taken Unknown] Allergy/AdvReac Type Severity Reaction Status Date / Time Penicillins Allergy Unknown Verified 07/24/21 21:28 Surgical History History of partial nephrectomy Social History Smoking Status: Current every day smoker tobacco type: cigarettes ROS ROS ED Constitutional Constitutional ED: Denies chills or fever(s) Cardiovascular Cardiovascular: Denies chest pain Respiratory/Chest Respiratory/Chest: Denies cough or dyspnea Gastrointestinal Gastrointestinal: Denies abdominal pain Musculoskeletal Musculoskeletal: Reports other Details: Right knee and hip pain Integumentary Denies rash Neurologic Neurologic: Reports paresthesias RLE; Denies headache(s) Psychiatric Psychiatric: Denies anxiety EXAM Physical Exam Const Vital Signs: 12/10/21 07:15 Temperature 97.8 F Temperature Source Temporal Pulse Rate 84 Respiratory Rate 20 H Blood Pressure 153/79 H Blood Pressure Mean 103 Pulse Ox 97 Oxygen Delivery Method Room Air Positive well nourished, well developed and obese General Appearance ED: well developed and NAD Nutritional Appearance: obese HEENT Reports moist mucous membranes Negative for trauma Eyes PERRL and EOMs intact bilaterally Neck supple Neck Narrative: Normal range of motion Chest Wall inspection of chest normal Resp normal respiratory effort and clear to auscultation bilaterally Cardio regular rate, regular rhythm and no murmurs GI GI Narrative: Protuberant abdomen Extremity Extremity Narrative: No obvious deformity of the lower extremity. Pain on palpation of the right hip as well as the right knee. Pain seems to be worse along the superior aspect of the right knee. Patella is in normal position. He does have pain with logroll of the extremity. Limited range of motion of the knee not able to perform stress testing on the knees due to discomfort. Patient is able to elevate straight leg off the bed. Neuro oriented x3 and no sensory deficits noted Sensorium / Orientation: alert Motor Exam: strength 5/5 throughout Psych mental status grossly normal Skin no rashes or lesions noted and no wounds MDM MDM MDM Narrative Medical decision making narrative: Patient evaluated after a fall with subsequent right hip and knee pain. No obvious deformity. X-rays obtained interpreted by myself as well as radiology do not show any acute fracture. While patient reports intermittent numbness that goes from his foot up his entire leg he has a normal neurologic exam at this time. No weakness with plantar, dorsiflexion or flexion of the great toe. Patient has improvement with ibuprofen in the ER. Will be discharged home with a course of this, and instructions on RICE therapy and referral for outpatient orthopedic follow-up. Patient agreeable this plan of care. Is given a work note as well. Radiography Diagnostic Testing: Clinical Impression(s) from Imaging Studies Hip/Pelvis X-Ray 12/10/21 08:40 IMPRESSION: Normal x-ray examination of the pelvis and hip. Electronically Signed: Efraín Titus MD at 9:06 EDT , Knee X-Ray 12/10/21 08:40 IMPRESSION: Normal x-ray examination of the knee. Electronically Signed: Efraín Titus MD at 9:06 EDT , Discharge Plan Triage Chief Complaint: Fall ED Provider: Donna Gómez Dx/Rx/DC Orders Clinical Impression: Right knee sprain, Acute pain of right hip, Fall Instructions: RICE, ED Knee Sprain, ED Fall Prevention Prescriptions: New ibuprofen 600 mg tablet 600 mg PO Q6H PRN PRN (Reason: Pain Score 1-10/10) Qty: 20 0RF No Action albuterol sulfate [ProAir HFA] 1 PUFF inhaler 1 - 2 puff inhalation Q6H PRN PRN (Reason: Wheezing) clindamycin HCl 150 MG capsule 300 mg PO TID Qty: 60 0RF Primary Care Provider: Veronica Berry NP Referrals: Carter Keys MD [Med Staff - Active Staff] - As Needed Veronica Berry NP, [employer] [Primary Care Provider] - Disposition Disposition: Home, Self Care
[2021-12-10] MEDS: Ibuprofen 600 MG Tablet PO (08:28)
--- NOTE | 2021-12-10 08:40 | RAD_ITS ---
STUDY: X-RAY - PELVIS AND RIGHT HIP REASON FOR EXAM: Male, 46 years old. Injury/Pain following a fall. TECHNIQUE: views of the pelvis and hip. COMPARISON: None. FINDINGS: There is a non-specific bowel gas pattern. Normal visualized soft tissue structures. Normal bilateral iliac wings, sacroiliac joints and visualized sacrum. Normal bilateral superior and inferior pubic rami. Normal pubic symphysis. Normal bilateral ischial tuberosities. Normal visualized femoral head. Normal acetabulum. Normal hip joint. RAD/HIP, UNI W/ Pelvis 2-3 Views IMPRESSION: Normal x-ray examination of the pelvis and hip. Electronically Signed: Efraín Titus MD at 9:06 EDT ,
--- NOTE | 2021-12-10 08:40 | RAD_ITS ---
STUDY: X-RAY - RIGHT KNEE REASON FOR EXAM: Male, 46 years old. Injury/Pain following a fall. TECHNIQUE: 4 view(s) of the knee. COMPARISON: None. FINDINGS: Normal visualized distal femur. Normal visualized proximal tibia and fibula. Normal proximal tibiofibular articulation. Normal medial femorotibial compartment. Normal lateral femorotibial compartment. Normal patellofemoral articulation. The soft tissue structures are unremarkable. RAD/Knee 4 or More Views IMPRESSION: Normal x-ray examination of the knee. Electronically Signed: Efraín Titus MD at 9:06 EDT ,
== END 2021-12-10 09:43 | disposition home or self-care (01) ==
PROVIDERS: Emergency Provider Emergency Medicine; PCP Nurse Practitioner Family; Visit Provider Emergency Medicine
DX: S83.91XA Sprain of unspecified site of right knee, initial encounter (principal); J44.9 Chronic obstructive pulmonary disease, unspecified; G40.909 Epilepsy, unspecified, not intractable, without status epilepticus; M25.551 Pain in right hip; W19.XXXA Unspecified fall, initial encounter; F17.210 Nicotine dependence, cigarettes, uncomplicated; E66.9 Obesity, unspecified
CPT/HCPCS: 73502; 73564; 99283

== ENCOUNTER 2021-12-16 15:48 | Emergency (ER) | payer OTHER, SELFPAY ==
[2021-12-16 15:49] VITALS: BP 153/97; PULSE 90; RESP 22; TEMP 36.4; O2SAT 97; BMI 47.0
--- NOTE | 2021-12-16 16:37 | EX.ED.DYSGE1 ---
HPI <PENG Garnica - Last Filed: 12/16/21 18:05> History of Present Illness Chief Complaint: Lower Extremity Injury Narrative Narrative: Patient states he has had intermittent back pain and bilateral hip pain for last 2 months after falling off a platform at work. He has been seeing occupational health. He has been having issues with numbness down his right and left legs into all the toes for some time that occurs intermittently. He is scheduled to see [facility] spine on December 24. He was here 6 days ago after a fall and had x-rays of the pelvis and hips as well as the right knee which showed no acute findings. Patient states today he is having worsening burning pain in his left thigh. He has had the same symptom before. There is been no new trauma since his previous visit. He denies weakness of his extremities, saddle anesthesia, bladder or bowel incontinence. PFSH <PENG Garnica - Last Filed: 12/16/21 18:05> PFSH Medical History Asthma Cancer COPD (chronic obstructive pulmonary disease) Seizures Shoulder fracture, right Smoker Home Medications albuterol sulfate 90 mcg/actuation aerosol inhaler (ProAir HFA) 1 - 2 puff inhalation Q6H PRN PRN Wheezing 05/13/18 [History Last Taken Unknown] clindamycin HCl 150 mg capsule 300 mg PO TID #60 caps 05/29/20 [Rx Last Taken Unknown] ibuprofen 600 mg tablet 600 mg PO Q6H PRN PRN Pain Score 1-10/10 #20 tabs 12/10/21 [Rx Last Taken Unknown] Allergy/AdvReac Type Severity Reaction Status Date / Time Penicillins Allergy Unknown Verified 12/16/21 15:52 Surgical History History of partial nephrectomy Social History Smoking Status: Current every day smoker tobacco type: cigarettes ROS <PENG Garnica - Last Filed: 12/16/21 18:05> ROS ED ROS Narrative Constitutional: Negative for fever, chills, malaise. Eyes: Negative for visual change. ENT: Negative for sore throat, ear pain, rhinorrhea. CVS: Negative for palpitations, chest pain, syncope. Respiratory: Negative for shortness of breath, cough, orthopnea. GI: Negative for abdominal pain, nausea, vomiting, diarrhea, constipation, melena, hematochezia. : Negative for dysuria, hematuria or frequency. Neuro: Negative for headache, motor/sensory dysfunction. Skin: Negative for rash, abscess, or wound. Musc: Positive for leg pain. No swelling. Heme: Negative for easy bruising, bleeding, lymphadenopathy. EXAM <PENG Garnica - Last Filed: 12/16/21 18:05> Physical Exam Narrative Exam Narrative: CONST: Patient sitting in no acute distress. EYES: Normal inspection. NECK: Normal inspection. RESP: No respiratory distress, CTAB. CVS: Regular rate and rhythm, no murmur, no gallop. ABD: Soft and nontender, no guarding or rebound, nondistended. Back: Normal inspection, no midline spinal tenderness, no step-offs or crepitus. SKIN: Color normal, no rash, warm, dry, intact. EXTREMITIES: Normal appearance, no pedal edema. Reproducible tenderness over left lateral thigh. Slight pain with range of motion of the hip. 5/5 bilateral hip flexion, knee flexion/extension, DF/PF. Normal sensation to light touch. 2+ DP pulses. NEURO: Oriented x4. PSYCH: Normal affect. Const Vital Signs: 12/16/21 15:49 Temperature 97.6 F L Temperature Source Temporal Pulse Rate 90 Respiratory Rate 22 H Blood Pressure 153/97 H Blood Pressure Mean 115 Pulse Ox 97 Oxygen Delivery Method Room Air <Dr. Caio Mock, DO - Last Filed: 12/16/21 17:45> Physical Exam Const Vital Signs: 12/16/21 15:49 Temperature 97.6 F L Temperature Source Temporal Pulse Rate 90 Respiratory Rate 22 H Blood Pressure 153/97 H Blood Pressure Mean 115 Pulse Ox 97 Oxygen Delivery Method Room Air MDM <PENG Garnica - Last Filed: 12/16/21 18:05> [facility] Narrative Medical decision making narrative: Patient has chronic bilateral hip pain from a work injury and fall 2 months ago. He presents with left hip and thigh pain. He was seen here 1 week ago and had hip and pelvis x-rays as well as right knee x-ray that were negative. There is been no new injury. On exam he has normal strength, sensation, pulses. Symmetric reflexes. No red flag symptoms concerning for cauda equina or epidural abscess. He was given Toradol with some improvement. Morphine has been ordered but he wants to drive home so this was discontinued. Patient is comfortable following up with his occupational health and [facility] spine appointment on December 24. He was discharged in stable condition. <Dr. Caio Mock, DO - Last Filed: 12/16/21 17:45> [facility] Treatment and Re-Evaluation Narrative: I have personally performed a face to face assessment of the patient and have reviewed the DELON Note. I performed a substantive portion of the visit including all aspects of the following. My owens findings include: History: Patient is a 46-year-old male who presents with left hip and thigh pain that has been getting progressively worse over the past week. Patient states his pain began a month ago. Patient states that 2 months ago he fell off of a platform and injured his right hip. Patient had x-rays here 1 month ago of both hips and his right knee. These were all negative. Patient denies any new injury. Patient denies any paresthesias or weakness. Patient describes his pain as a burning pain. Patient states it is worse with palpation. Exam: Vital signs are stable. Patient is afebrile. Patient is in no acute distress. Musculoskeletal exam reveals tenderness over the left lateral hip and thigh area. There is no erythema or warmth. There is no discharge or drainage. Range of motion was slightly limited all motions of the left hip secondary to pain. Strength is 5/5 bilaterally. There are no sensory deficits. Medical Decision Making: Prior x-rays were reviewed. There is no acute fracture. I do not feel that there is need for further imaging today since there was no new injury. Patient was given injection of Toradol here which had some improvement of his pain. Patient was given an injection of morphine. Patient was instructed to follow-up with his Workmen's Comp. physicians and orthopedic surgeons as scheduled. Patient understood and was agreeable with the plan. All questions were answered. Discharge Plan Triage Chief Complaint: Lower Extremity Injury ED Midlevel Provider: Delia Blackmon ED Provider: Caio Mock Dx/Rx/DC Orders Clinical Impression: Chronic leg pain Instructions: ED Back Care Tips, ED Chronic Pain Prescriptions: No Action albuterol sulfate [ProAir HFA] 1 PUFF inhaler 1 - 2 puff inhalation Q6H PRN PRN (Reason: Wheezing) clindamycin HCl 150 MG capsule 300 mg PO TID Qty: 60 0RF ibuprofen 600 mg tablet 600 mg PO Q6H PRN PRN (Reason: Pain Score 1-10/10) Qty: 20 0RF Primary Care Provider: Veronica Berry NP Referrals: Veronica Berry NP, [employer] [Primary Care Provider] - Activity Restrictions/Additional Instructions: Follow-up with occupational health and [facility] Disposition Disposition: Home, Self Care
[2021-12-16] MEDS: Ketorolac 30 MG/ML Syringe IM (16:48)
[2021-12-16 18:10] VITALS: BP 145/83; PULSE 71; RESP 16; O2SAT 98
== END 2021-12-16 18:11 | disposition home or self-care (01) ==
PROVIDERS: Emergency Provider Emergency Medicine; PCP Nurse Practitioner Family; Visit Provider Emergency Medicine
DX: M25.551 Pain in right hip (principal); J44.9 Chronic obstructive pulmonary disease, unspecified; M25.552 Pain in left hip; G89.29 Other chronic pain; F17.210 Nicotine dependence, cigarettes, uncomplicated
CPT/HCPCS: 96372; 99282

== ENCOUNTER 2022-10-09 17:03 | Emergency (ER) | payer OTHER, SELFPAY ==
[2022-10-09 17:04] VITALS: BP 161/101; PULSE 88; RESP 18; TEMP 36.6; O2SAT 97
--- NOTE | 2022-10-09 17:08 | EDS_ITS ---
HPI History of Present Illness Chief Complaint: Seizure PFSH PFSH Medical History Asthma Cancer COPD (chronic obstructive pulmonary disease) Seizures Shoulder fracture, right Smoker Home Medications albuterol sulfate 90 mcg/actuation aerosol inhaler (ProAir HFA) 1 - 2 puff inhalation Q6H PRN PRN Wheezing 05/13/18 [History Last Taken Unknown] clindamycin HCl 150 mg capsule 300 mg (2 x 150 mg) PO TID #60 caps 05/29/20 [Rx Last Taken Unknown] ibuprofen 600 mg tablet 600 mg PO Q6H PRN PRN Pain Score 1-10/10 #20 tabs 12/10/21 [Rx Last Taken Unknown] valproic acid 250 mg capsule 750 mg (3 x 250 mg) PO BID #180 caps 10/09/22 [Rx Last Taken Unknown] Allergy/AdvReac Type Severity Reaction Status Date / Time Penicillins Allergy Unknown Verified 10/09/22 17:06 Surgical History History of partial nephrectomy Social History Smoking Status: Current every day smoker tobacco type: cigarettes EXAM Physical Exam Const Vital Signs: 10/09/22 17:04 10/09/22 21:48 Temperature 98 F Temperature Source Temporal Pulse Rate 88 76 Respiratory Rate 18 22 H Blood Pressure 161/101 H 138/74 H Blood Pressure Mean 121 95 Pulse Ox 97 Oxygen Delivery Method Room Air MDM MDM MDM Narrative Medical decision making narrative: HISTORY OF PRESENT ILLNESS: 47-year-old male here with concern for multiple seizures. History also provided by the patient's . She states patient had 2 seizures today. Initial seizure occurred approximately 1 PM. After approximately 45 minutes and full return to baseline patient had another seizure that terminated without treatment. Patient notes history of seizures as a child but does not been treated since childhood. States he used to be on Depakote. Denies drinking alcohol. Denies any head trauma. Denies any focal numbness weakness or slurred speech. He does note history of COPD and states has had shortness of breath and cough reductive of white sputum. He denies any chest pain. The patient denies recent surgery in the last 4 weeks or immobilization in the last 3 days, denies previous diagnosis of DVT or PE, hemoptysis, unilateral leg swelling or malignancy with treatment the last 6 months. No estrogen use noted. Denies any bleeding diathesis. Denies any vomiting or volume loss. Denies any fever or recent infections REVIEW OF SYSTEMS: Pertinent positives: Seizure, shortness of breath Pertinent negatives: Head trauma, focal weakness PHYSICAL EXAM: Nursing triage notes reviewed, Vital signs reviewed Constitutional: please see mdm HENT: MMM Eyes: Pupils equal round and reactive to light, Extraocular muscles intact Neck: No stridor, no JVD, full neck ROM Lungs: Clear to auscultation, No wheezing or rales. No increased work of breathing, no conversational dyspnea, no accessory muscle use, no nasal flaring. No respiratory distress noted Heart: Regular rate and rhythm, No murmurs, No rubs and No gallops, 2+ distal pulses (radial, femoral, posterior tibial) in all extremities Abdomen: Soft, there is no tenderness, rigidity, rebound or guarding, no obvious peritoneal signs, no palpable pulsatile abdominal masses, no auscultated abdominal bruit : No CVAT Extremities: No edema Neuro: Alert and oriented x3, neuro exam at baseline, cranial nerves II through XII are intact. No pain with extraocular muscle movement. There is negative test of skew. Normal speech. 5 of 5 strength in upper and lower extremities in flexion extension. Intact sensation to light touch in upper and lower extremity dermatomes. No truncal or extremity ataxia. No dysdiadochokinesia. 2+ reflexes. No meningeal signs. Negative Babinski. NIH of 0 Skin: No rash or lesions noted MEDICAL DECISION MAKING: Chief Complaint: Seizures External records reviewed: No recent ED visits or hospitalizations noted in the chart Factors affecting care: History of seizures, COPD, cancer asthma Social determinants of health: Tobacco abuse History obtained from others: The patient's Consults: none ALL IMAGES (IF OBTAINED) HAVE BEEN PERSONALLY REVIEWED AND INTERPRETED BY MYSELF. EKG with normal sinus rhythm, normal axis, normal normals, no STEMI CBC with leukocytosis, no anemia, no thrombocytopenia BMP without evidence of significant electrolyte abnormalities, no anion gap, no acute kidney injury. Troponin is negative, no evidence of myocardial ischemia BNP within normal limits suggesting no volume overload, no increased transpleural pressure, no increased ventricular structure suggest heart failure MDM Narrative: Patient was hemodynamically stable, afebrile, nontoxic-appearing. Patient no focal neurologic deficits. Alert and orient x3. No signs of trauma. No focus of infection. Lungs were clear with slight wheezes. I considered the following differential diagnosis: Breakthrough seizure, ICH, brain mass, hyponatremia, hypoglycemia I obtained a broad lab and imaging work-up to further elucidate the etiology of the patient's complaints. Initial lab and imaging work-up did not reveal evidence of intracranial hemorrhage, brain mass hyponatremia or hypoglycemia. No signs of myocardial ischemia, CHF, pneumonia. Low suspicion for pulmonary embolism given the patient's low risk Wells score. During his ED course he did have a seizure that aborted without intervention. Given multiple seizures and need for more urgent neurology evaluation I did offer the patient admission to our closest hospital with neurology services. Patient requested starting his old seizure medicine as opposed to being admitted. He states his primary doctor given referral to neurology and he intends to follow-up as an outpatient. Driving precautions were discussed. Patient was loaded with 15 mg/kg ideal weight valproic acid. He was given oral valproic acid for home-going. He is given strict return precautions and follow-up instructions. The patient and/or family, caregivers express understanding. The patient and/or family, caregivers agrees with the plan. Total critical care time today provided was at least 0 minutes. This excludes separately billable procedures. Critical care time (if documented) is secondary to the patient having high probability of clinically significant/life threatening deterioration in the patient's condition which required my urgent intervention. Shared decision making: I will have a discussion with the patient and or visitors regarding risk/benefits of further testing or admission. They will be made aware of of the risk/benefits inherent in this decision they will be given the opportunity to voice understanding. Lab Data Attestation: I reviewed the patient's lab results. Labs: Laboratory Results - last 24 hr 10/09/22 17:15 WBC 12.5 H RBC 5.03 Hgb 16.3 Hct 46.6 MCV 92.6 MCH 32.4 H MCHC 35.0 RDW Std Deviation 44.6 H RDW Coeff of Naresh 13.1 Plt Count 214 MPV 10.9 Sodium 136 Potassium 3.8 Chloride 104 Carbon Dioxide 29.0 Anion Gap 3 L BUN 11 Creatinine 0.95 Est GFR (MDRD) Af Amer 109 Est GFR (MDRD) Non-Af 90 BUN/Creatinine Ratio 11.6 Glucose 155 H Calcium 8.6 Troponin I High Sens 6 B-Natriuretic Peptide 12.1 Radiography Diagnostic Testing: Clinical Impression(s) from Imaging Studies Brain CT 10/09/22 17:24 IMPRESSION: Normal unenhanced CT scan of the brain. Electronically Signed: Varinder Bruno MD at 18:33 EDT Reading Location ID and State: [facility] / [place] Tel , Service support , Discharge Plan Triage Chief Complaint: Seizure ED Provider: Praveen Church Dx/Rx/DC Orders Clinical Impression: Seizure Instructions: ED Seizure, Recurrent (Adult) Prescriptions: New valproic acid 250 mg capsule 750 mg PO BID Qty: 180 0RF No Action albuterol sulfate [ProAir HFA] 1 PUFF inhaler 1 - 2 puff inhalation Q6H PRN PRN (Reason: Wheezing) clindamycin HCl 150 MG capsule 300 mg PO TID Qty: 60 0RF ibuprofen 600 mg tablet 600 mg PO Q6H PRN PRN (Reason: Pain Score 1-10/10) Qty: 20 0RF Primary Care Provider: Miranda Chan NP Referrals: Miranda Chan NP, CULTURE MANAGER-C [Primary Care Provider] - Activity Restrictions/Additional Instructions: Thank you for trusting us with your care today! Please begin taking 750 mg of valproic acid twice a day Please return to the emergency department if your symptoms change or worsen. Specifically if you develop a seizure that lasts longer than 5 minutes or if you develop multiple seizures without return to baseline Please follow with neurology for further outpatient evaluation and management. If you cannot obtain an outpatient neurologist you may follow with [facility] [address], [place], [place] [phone] Disposition Disposition: Home, Self Care
--- NOTE | 2022-10-09 17:10 | EKG12_ITS ---
Test Reason : SEIZURES Blood Pressure : / mmHG Vent. Rate : 077 BPM Atrial Rate : 077 BPM P-R Int : 182 ms QRS Dur : 088 ms QT Int : 390 ms P-R-T Axes : 083 048 071 degrees QTc Int : 441 ms Normal sinus rhythm Normal ECG Confirmed by AMPARO OTT, BECCA ([id number]), city editor ALLAN AGUIRRE ([id number]) on 10/10/2022 2:27:23 PM Referred By: Confirmed By:BECCA CHRISTENSEN MD
--- NOTE | 2022-10-09 17:24 | CT_ITS ---
STUDY: CT BRAIN WITHOUT CONTRAST REASON FOR EXAM: Male, 47 years old. seizure r/o mass or bleed RADIATION DOSAGE (If Supplied By Facility): CTDIvol = ( 44.99 ) mGy, DLP = ( 863.60 ) mGycm TECHNIQUE: Transaxial CT imaging of the brain was performed without administration of intravenous contrast material. Individualized dose optimization techniques were used for this CT. COMPARISON: No relevant priors. FINDINGS: Normal soft tissue structures. Normal calvarium. Normal size ventricles and extra-axial spaces for the patient''s age. Normal white matter tracts of the cerebral hemispheres. Normal basal ganglia and thalami. Normal brainstem. Normal cerebellum. There is no intracranial hemorrhage. There are no findings of an acute ischemic infarction. Normal visualized paranasal sinuses. CT/Brain/Head without Contrast IMPRESSION: Normal unenhanced CT scan of the brain. Electronically Signed: Varinder Bruno MD at 18:33 EDT ,
[2022-10-09 17:32] LABS: Hematocrit 46.6 % (40-54); Hemoglobin 16.3 g/dL (13.0-16.5); Mean Corpuscular Hgb 32.4 pg (27.0-32.0); Mean Corpuscular Volume 92.6 fL (80-94); Mean Platelet Vol. 10.9 fl (6.2-12.0); Platelet Count 214 K/mm3 (150-450); RBC Distribution Width CV 13.1 % (11.6-14.6); RBC Distribution Width SD 44.6 fl (35.1-43.9); Red Blood Count 5.03 M/mm3 (4.6-6.2); White Blood Count 12.5 K/mm3 (4.4-11.0)
[2022-10-09 17:38] LABS: Anion Gap 3 (5-15); BUN 11 mg/dL (7-18); BUN/Creat Ratio 11.6 RATIO (10-20); Calcium,Total 8.6 mg/dL (8.5-10.1); Chloride 104 mmol/L (98-107); Creatinine, Serum 0.95 mg/dL (0.70-1.30); EST Glomerular Filtration Rate 90 mL/min (>60); Est Glom Filt Rate - Afr Amer 109 mL/min (>60); Glucose 155 mg/dL (74-106); Potassium 3.8 mmol/L (3.5-5.1); Sodium Level 136 mmol/L (136-145)
[2022-10-09 18:04] LABS: Troponin-I HS 6 pg/mL (3.0-78.0)
[2022-10-09 18:13] LABS: BNP,B-Type NATRIURETIC PEPTIDE 12.1 pg/mL (0-100)
[2022-10-09 20:39] VITALS: BMI 47.8
[2022-10-09 21:48] VITALS: BP 138/74; PULSE 76; RESP 22
[2022-10-09 22:48] VITALS: BP 158/76
== END 2022-10-09 22:51 | disposition home or self-care (01) ==
PROVIDERS: Emergency Provider Emergency Medicine; PCP Registered Nurse; Visit Provider Emergency Medicine
DX: R56.9 Unspecified convulsions (principal); J44.9 Chronic obstructive pulmonary disease, unspecified; F17.210 Nicotine dependence, cigarettes, uncomplicated; J45.909 Unspecified asthma, uncomplicated; Z79.899 Other long term (current) drug therapy; Z90.5 Acquired absence of kidney
CPT/HCPCS: 70450; 80048; 83880; 84484; 85027; 93005; 96365; 96366; 99284; A4216

== ENCOUNTER 2023-05-12 21:45 | Emergency (ER) | payer OTHER, SELFPAY ==
[2023-05-12 21:51] VITALS: BP 145/76; PULSE 69; RESP 22; TEMP 36.6; O2SAT 98; BMI 46.3
--- NOTE | 2023-05-12 22:11 | CT_ITS ---
STUDY: CT BRAIN WITHOUT CONTRAST REASON FOR EXAM: Male, 47 years old. mult seizure-like episodes, headache RADIATION DOSAGE (If Supplied By Facility): CTDIvol = ( 44.99 ) mGy, DLP = ( 812.98 ) mGycm TECHNIQUE: Transaxial CT imaging of the brain was performed without administration of intravenous contrast material. Individualized dose optimization techniques were used for this CT. COMPARISON: 10/09/2022 FINDINGS: Normal soft tissue structures. Normal calvarium. Normal size ventricles and extra-axial spaces for the patient''s age. Normal white matter tracts of the cerebral hemispheres. Normal basal ganglia and thalami. Normal brainstem. Normal cerebellum. There is no intracranial hemorrhage. There are no findings of an acute ischemic infarction. Opacification left maxillary sinus consistent with sinusitis. CT/Brain/Head without Contrast IMPRESSION: Normal unenhanced CT scan of the brain. Electronically Signed: Varinder Bruno MD at 23:03 EST ,
[2023-05-12] MEDS: Metoclopramide 10 MG/2 ML Vial 5 MG IV (22:20)
[2023-05-12 22:22] LABS: Absolute Lymphocyte Count 3.82 X10^3/uL (0.83-4.51); Absolute Neutrophil Count 5.7 X10^3/uL (2.0-7.7); Basophil% 0.9 % (0-1); Eosinophils% 4.5 % (0-5); Hematocrit 46.1 % (40-54); Lymphocyte # 3.82 X10^3/ul (0.83-4.51); Lymphocyte % 34.1 % (19-41); Mean Corp Hgb Conc 34.7 g/dL (32-36); Mean Corpuscular Hgb 32.6 pg (27.0-32.0); Mean Corpuscular Volume 93.9 fL (80-94); Mean Platelet Vol. 10.7 fl (6.2-12.0); Monocyte# 1.06 X10^3/uL; Monocyte% 9.5 % (0-10); NRBC Flagged by Analyzer 0 % (0-5); Neutrophil # 5.66 X10^3/uL (2.7-7.7); Neutrophil % 50.5 % (47-70); Platelet Count 160 K/mm3 (150-450); RBC Distribution Width CV 12.9 % (11.6-14.6); RBC Distribution Width SD 44.4 fl (35.1-43.9); Red Blood Count 4.91 M/mm3 (4.6-6.2); White Blood Count 11.2 K/mm3 (4.4-11.0)
[2023-05-12 22:31] LABS: Anion Gap 4 (5-15); BUN 11 mg/dL (7-18); BUN/Creat Ratio 13.4 RATIO (10-20); Calcium,Total 8.8 mg/dL (8.5-10.1); Chloride 105 mmol/L (98-107); Creatinine, Serum 0.82 mg/dL (0.70-1.30); EST Glomerular Filtration Rate 107 mL/min (>60); Est Glom Filt Rate - Afr Amer 129 mL/min (>60); Estimated Creatinine Clearance 173.93 ml/min; Glucose 148 mg/dL (74-106); Sodium Level 139 mmol/L (136-145)
[2023-05-12 22:34] LABS: Valproic Acid (Depakene) Level 61 ug/mL (50-100)
[2023-05-12 22:35] LABS: Bacteria 0 SEEN /hpf (None Seen); Mucous, Urine 0 SEEN /hpf (<or=2+); Squamous Epithelial Cells - UA 0 SEEN /hpf (0-5)
--- NOTE | 2023-05-12 22:38 | EDS_ITS ---
HPI History of Present Illness Chief Complaint: Seizure Informant: patient and spouse/S.O. (girlfriend) Onset/Context/Timing Onset: Hours (last 1-2 hrs) Timing: Intermittent (4 episodes) and Lasts (60-90 sec, except for initial episode, which lasted 6 minutes) Quality: tonic-clonic Location: full body Current Severity: Gone Maximum Severity: Severe Narrative Narrative: 47-year-old male who has had 4 seizures total prior to my evaluation within the past hour or 2. It started with a 6-minute seizure which is very unusual for him. Significant other states he usually has [id number] episodes. This is what made her bring him to the emergency department, he has seen neuro care in the past and they have told him anything longer than 5 minutes he should be brought to the emergency department. She states last year is when the seizure started although he did have them when he was a child. She states that he usually will have an episode and then go back to normal very quickly. If he has a headache or migraine for the day, he will very commonly have a seizure that day. She states he also can be likely to have a seizure if he gets up from sitting or lying down in a certain manner, turning his head or neck a certain way as the significant other is suggesting. Does not sound like he usually has postictal periods. She states 3 to 4 days ago, he had 1 of these episodes when he was walking in a store, he did not lose postural stability during that, and went back to normal after about a minute like usual. She states typically he has these every 3 or 4 days for the last several months or year. Has been on Depakote, currently at 1500 mg in the morning and 2000 mg in the night, and 2 to 3 weeks ago added Keppra 750 mg twice daily. He was planning on going to work [employer], presents around 10 PM and significant other states that he took the nighttime doses just prior to coming here. Patient denies any recent fall or head injury, recent illness, he states he feels fine right now except for having a headache and feeling tired. Significant other states this is unusual after episodes that he usually has, as he usually goes right back to normal. She states prior workup has included an admission to [facility] with an EEG that she was told was unremarkable. [facility] Medical History Asthma Cancer COPD (chronic obstructive pulmonary disease) Seizures Shoulder fracture, right Smoker Home Medications albuterol sulfate 90 mcg/actuation aerosol inhaler (ProAir HFA) 1 - 2 puff inhalation Q6H PRN PRN Wheezing 05/13/18 [History Last Taken Unknown] clindamycin HCl 150 mg capsule 300 mg (2 x 150 mg) PO TID #60 caps 05/29/20 [Rx Last Taken Unknown] ibuprofen 600 mg tablet 600 mg PO Q6H PRN PRN Pain Score 1-01/07 #20 tabs 12/10/21 [Rx Last Taken Unknown] valproic acid 250 mg capsule 750 mg (3 x 250 mg) PO BID #180 caps 10/09/22 [Rx Last Taken Unknown] divalproex 500 mg tablet,delayed release 1,500 mg PO BREAKFAST 05/12/23 [History Last Taken Unknown] divalproex 500 mg tablet,delayed release (Depakote) 2,000 mg PO .SUPPER 05/12/23 [History Last Taken Unknown] levetiracetam 750 mg tablet 750 mg PO Q12H 05/12/23 [History Last Taken Unknown] Allergy/AdvReac Type Severity Reaction Status Date / Time Penicillins Allergy Unknown Verified 05/12/23 21:55 Surgical History History of partial nephrectomy Social History Smoking Status: Current every day smoker tobacco type: cigarettes ROS ROS ED Constitutional Constitutional ED: Reports fatigue; Denies chills or fever(s) Eyes Eyes: Reports blurry vision bilateral (gone now); Denies change in vision or diplopia ENT ENT ED: Denies rhinorrhea or sore throat Cardiovascular Cardiovascular: Denies chest pain or palpitations Respiratory/Chest Respiratory/Chest: Denies cough or dyspnea Gastrointestinal Gastrointestinal: Denies abdominal pain, diarrhea, nausea or vomiting Genitourinary Genitourinary ED: Denies dysuria or hematuria Musculoskeletal Musculoskeletal: Denies back pain or neck pain Integumentary Denies abscess or rash Neurologic Neurologic: Reports as per HPI, headache(s) and seizures; Denies paresthesias or weakness Psychiatric Psychiatric: Denies anxiety or suicidal thoughts EXAM Physical Exam Const Vital Signs: 05/12/23 21:51 05/12/23 23:34 Temperature 98 F Temperature Source Temporal Pulse Rate 69 64 Respiratory Rate 22 H 18 Blood Pressure 145/76 H 148/95 H Blood Pressure Mean 99 112 Pulse Ox 98 97 Oxygen Delivery Method Room Air Room Air Positive well nourished, well developed and obese General Appearance ED: well developed and NAD Nutritional Appearance: obese HEENT Reports moist mucous membranes normocephalic and atraumatic Eyes PERRL and EOMs intact bilaterally Neck full ROM, supple and no JVD Chest Wall inspection of chest normal and palpation of chest normal Resp normal respiratory effort and clear to auscultation bilaterally Cardio regular rate, regular rhythm and no murmurs Rate: Negative for tachycardic GI non-tender and non-distended Auscultation: normoactive bowel sounds Palpation: soft Back/Spine no CVA tenderness General Back: other FROM Extremity normal to inspection General Extremety ED: Negative for edema, pulses abnormal or tenderness General Extremity: Negative for edema or pulses abnormal Neuro oriented x3, CN's II-XII intact bilaterally and no sensory deficits noted Sensorium / Orientation: awake and alert Motor Exam: strength 5/5 throughout Psych mental status grossly normal Skin no rashes or lesions noted and no wounds MDM MDM MDM Narrative Medical decision making narrative: Given the significant others description of this being very different than what he is used to and also having 4 episodes today, CT of the head was obtained in order to evaluate for [employer] causes such as bleeding in the brain. I reviewed the images and the result which I agree with, it is negative for anything acute. Urine infections can cause breakthrough seizures, so we sent a urinalysis and it is negative for infection. His labs are noted and show nothing unusual. While awaiting testing he was given Reglan for his headache, and on reevaluation is feeling much better and his headache is resolved. I also sent a valproic acid level, it is 61. While this is in the normal range, it is at the low end of the normal range, and it is an hour or so after the patient took his nighttime dose. Therefore, prior to taking this dose which is his large dose of 2000 mg nightly, I suspect that while he was having seizures he was probably out of the normal range, low. Given this I think giving him a bolus of valproic acid in the IV is reasonable to get him up to the higher levels of the normal range. He and significant other agreed with this, he was observed for another hour or 2 while he got 1000 mg, and had no further seizure or neurologic activity. Given this I am comfortable with him going home right now, and advised not to go to work tonight given a note for that and follow-up with his neurologist. They are comfortable with that plan we discussed reasons to return. Lab Data Attestation: I reviewed the patient's lab results. Labs: Laboratory Results - last 24 hr 05/12/23 05/12/23 21:56 22:30 WBC 11.2 H RBC 4.91 Hgb 16.0 Hct 46.1 MCV 93.9 MCH 32.6 H MCHC 34.7 RDW Std Deviation 44.4 H RDW Coeff of Naresh 12.9 Plt Count 160 MPV 10.7 Immature Gran % (Auto) 0.500 Neut % (Auto) 50.5 Lymph % (Auto) 34.1 [place] % (Auto) 9.5 Eos % (Auto) 4.5 Baso % (Auto) 0.9 Absolute Neuts (auto) 5.7 Absolute Lymphs (auto) 3.82 Nucleated RBC % 0 Sodium 139 Potassium 4.0 Chloride 105 Carbon Dioxide 30.0 Anion Gap 4 L BUN 11 Creatinine 0.82 Estim Creat Clear Calc 173.93 Est GFR (MDRD) Af Amer 129 Est GFR (MDRD) Non-Af 107 BUN/Creatinine Ratio 13.4 Glucose 148 H Calcium 8.8 Urine Color Yellow Urine Clarity Clear Urine pH 6.0 Ur Specific [place] 1.020 Urine Protein Negative Urine Glucose (UA) Normal Urine Ketones Negative Urine Occult Blood 25 H Urine Nitrite Negative Urine Bilirubin Negative Urine Urobilinogen 1 H Ur Leukocyte Esterase Negative Urine RBC 0-5 SEEN Urine WBC 0-5 SEEN Ur Squamous Epith Cells 0 SEEN Urine Bacteria 0 SEEN Urine Mucus 0 SEEN Valproic Acid 61 Radiography Diagnostic Testing: Clinical Impression(s) from Imaging Studies Brain CT 05/12/23 22:11 IMPRESSION: Normal unenhanced CT scan of the brain. Electronically Signed: Varinder Bruno MD at 23:03 EST , Discharge Plan Triage Chief Complaint: Seizure ED Provider: Laurent Beltrán Dx/Rx/DC Orders Clinical Impression: Breakthrough seizure, Seizure disorder Instructions: ED Seizure, Recurrent (Adult) Prescriptions: No Action albuterol sulfate [ProAir HFA] 1 PUFF inhaler 1 - 2 puff inhalation Q6H PRN PRN (Reason: Wheezing) clindamycin HCl 150 MG capsule 300 mg PO TID Qty: 60 0RF ibuprofen 600 mg tablet 600 mg PO Q6H PRN PRN (Reason: Pain Score 1-10/10) Qty: 20 0RF valproic acid 250 mg capsule 750 mg PO BID Qty: 180 0RF divalproex 500 mg tablet,delayed release (DR/EC) 1,500 mg PO BREAKFAST divalproex [Depakote] 500 mg tablet,delayed release (DR/EC) 2,000 mg PO .SUPPER levetiracetam 750 mg tablet 750 mg PO Q12H Primary Care Provider: Miranda Chan NP Referrals: Neurologist, your [Other] - As soon as possible Miranda Chan NP, CAREER DISCOVERY TEACHER-C [Primary Care Provider] - Activity Restrictions/Additional Instructions: Stay on your current dosing of antiepileptics until you see your neurologist. Disposition Disposition: Home, Self Care
[2023-05-12 22:40] LABS: Color, Urine Yellow (Yellow); Glucose, Dipstick Normal (Normal); Ketone-Dipstick Negative (Negative); Leukocyte Esterase-Dipstick Negative /ul (Negative); Nitrite-Dipstick Negative (Negative); Occult Blood-Urine 25 /ul (Negative); Protein-Dipstick Negative (Negative); Urine Bilirubin Dipstick Negative (Negative); Urine Clarity Clear (Clear); Urine Urobilinogen 1 mg/dl (Normal)
--- OUTSIDE RECORDS SUMMARY | 2023-05-12 22:41 | XMS RPT_ITS | CCD ---
Author Name Unknown Address [id number] [place] [address] Organization [facility] Care Team Providers Care Director Of Medical Review Name Role Phone PHYSICIAN, NONE Primary Care Physician Unavailab le GOLDEN LOCATION ANALYST-PHARMACY INTERN, OTONIEL Primary Care Physician Unavailable Primary Care Provider Unavailabl e Golden LOCATION ANALYST.PHARMACY INTERN, Otnoiel Primary Care Provider [phone] Golden LOCATION ANALYST.PHARMACY INTERN, Otoniel Primary Care Provider [phone] Golden LOCATION ANALYST.PHARMACY INTERN, Otoniel Primary Care Provider Golden LOCATION ANALYST.PHARMACY INTERN, Otoniel Primary Care Provider [phone] DIONISIO LOCATION ANALYST-PHARMACY INTERN, LARISSA Maria Primary Care Physi cristy NUNO DODD Referring Unavailable GOLDEN, OTONIEL Primary Care Unavailable NUÑZE, NAUN A Referring Unavailable GOLDEN, OTONIEL Primary Care Unavailable NUÑEZ, NAUN A Referring Unavailable GOLDEN, OTONIEL Primary Care Unavailable NEHA RUEDA Attending Unavaila ble GOLDEN, OTONIEL Primary Care Unavailable DIONISIO LOCATION ANALYST-PHARMACY INTERN, LARISSA A Attending Un available GOLDEN LOCATION ANALYST-PHARMACY INTERN, OTONIEL Primary Care Unavaila ble PRIYA EDWARDS DO Attending Unavailable GOLDEN LOCATION ANALYST-PHARMACY INTERN, OTONIEL Primary Care Unavaila ble DIONISIO LOCATION ANALYST-PHARMACY INTERN, LARISSA A Primary Care Un available DIONISIO LOCATION ANALYST-PHARMACY INTERN, LARISSA Maria Attending Un available DIONISIO LOCATION ANALYST-PHARMACY INTERN, LARISSA Maria Admitting Un available DIONISIO LOCATION ANALYST-PHARMACY INTERN, LARISSA A Primary Care Un available DIONISIO LOCATION ANALYST-PHARMACY INTERN, LARISSA Maria Attending Un available DIONISIO LOCATION ANALYST-PHARMACY INTERN, LARISSA A Primary Care Un available SABINA BARDALES MD Attending Unavailable DAWSON TORRES PA-C Attending Unavailable DIONISIO CHAO-MICHELLE, LARISSA A Primary Care Un available DIONISIO CONROY, LARISSA A Primary Care Un available SABINA BARDALES MD Attending Unavailable NUÑEZ, NAUN A Attending Unavailable GOLDEN, OTONIEL Primary Care Unavailable NUÑEZ, NAUN A Referring Unavailable NUÑEZ, NAUN A Attending Unavailable GOLDEN, OTONIEL Primary Care Unavailable NUÑEZ, NAUN A Referring Unavailable GOLDEN, OTONIEL Primary Care Unavailable YOUSIF, NUNO Referring Unavailable GOLDEN, OTONIEL Primary Care Unavailable YOUSIF, NUNO Referring Unavailable OYUSIF, NUNO Attending Unavailable GOLDEN, OTONIEL Primary Care Unavailable YOUSIF, NUNO Referring Unavailable GOLDEN, OTONIEL Primary Care Unavailable NUÑEZ, NAUN A Referring Unavailable GOLDEN, OTONIEL Primary Care Unavailable NUÑEZ, NAUN A Referring Unavailable GOLDEN, OTONIEL Primary Care Unavailable NUÑEZ, NAUN A Attending Unavailable NUÑEZ, NAUN A Referring Unavailable GOLDEN, OTONIEL Primary Care Unavailable YOUSIF, NUNO Attending Unavailable GOLDEN, OTONIEL Primary Care Unavailable Allergies Allergy Classification Reported Allergen(s) Allergy Type Date of Onset Reaction(s) Facility (12 sources) Penicillin; Translations: [penicillins] Drug Allergy 10-16-2011 Unknown [facility] (20 sources) Penicillins; Translations: [PENICILLINS] Drug Allergy 10-16-2011 Unknown [facility] Work Phone: Medications Current Medications Medication Drug Class(es) Dates Sig (Normalized) Sig (Original) azithromycin 250 mg oral tablet (1 source) Macrolide Antimicrobial Start: 08-14-2021 End: 08-19-2021 Zithromax 250 mg oral tablet Dose : 250 mg = 1 tab(s), Oral, qDay, follow directions on Z-Sumeet, X 5 day(s), # 6 tab(s), 0 Refill(s), 08/19/21 9:11:00 EDT, Pharmacy: [facility]/pharmacy #[id number], 188, cm, 08/14/21 8:41:00 EDT, Height, 159.6 Start Date: 08/14/21 Stop Date: 08/19/21 Status: Ordered benzoyl peroxide 53 mg/ml topical foam (1 source) Start: 07-26-2022 apply 1 dose topically twice daily benzoyl peroxide 5.3% topical foam Dose = 1 davy, Topical, BID, # 60 gram(s), 0 Refill(s), Pharmacy: [facility]/pharmacy #[id number], Dermatitis, 185.4, cm, 07/26/22 9:28:00 EDT, Height Start Date: 07/26/22 Status: Ordered cetirizine hydrochloride 10 mg oral tablet (18 sources) Histamine-1 Receptor Antagonist Start: 05-31-2022 End: 08-29-2022 cetirizine 10 mg oral tablet Dose : 10 mg = 1 tab(s), TAKE 1 TABLET BY MOUTH EVERY DAY Start Date: 07/26/22 Status: Ordered Completed/Discontinued Medications Medication Drug Class(es) Dates Sig (Normalized) Sig (Original) [id number] 200 actuat albuterol 0.09 mg/actuat metered dose inhaler (20 sources) beta2-Adrenergic Agonist Start: 01-31-2022 take 2 puff(s) by inhalation every four hours as needed for wheezing albuterol HFA (PROVENTIL HFA, VENTOLIN HFA) 90 mcg/actuation inhaler Inhale 2 Puffs as instructed every 4 hours as needed for wheezing/shortnes s of breath. 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] Onset: 04-02-2022 Chronic obstructive pulmonary disease and bronchiectasis (20 sources) Asthma-chronic obstructive pulmonary disease overlap syndrome; Translations: [Chronic obstructive lung disease] Onset: 10-09-2021 08-20-2021 Chronic Coma; stupor; and brain damage (3 sources) Daytime somnolence 10-07-2022 Episodic Complications of surgical procedures or medical care (1 source) Non dose-related adverse reaction to medication; Translations: [Unspecified adverse effect of drug or medicament, initial encounter] Episodic Epilepsy; convulsions (20 sources) Epilepsy; Translations: [Epilepsy, unspecified, not intractable, without status epilepticus] Onset: 10-09-2021 09-11-2014 Chronic Esophageal disorders (4 sources) Gastroesophageal reflux disease 07-26-2022 Chronic Fluid and electrolyte disorders (1 source) Hypo-osmolality and hyponatremia; Translations: [Hyponatremia] Onset: 01-07-2023 Episodic Immunizations and screening for infectious disease (1 source) Vaccination needed; Translations: [Encounter for immunization] Episodic Mood disorders (4 sources) Depressive disorder 07-26-2022 Chronic Other circulatory disease (7 sources) Elevated blood-pressure reading without diagnosis of hypertension 09-10-2021 Episodic Other connective tissue disease (1 source) Pain of right lower leg; Translations: [Pain in right lower leg] Onset: 10-30-2021 Episodic Other connective tissue disease (1 source) Tendinitis; Translations: [Iliotibial band syndrome, right leg] Episodic Other connective tissue disease (1 source) Trochanteric bursitis of right hip; Translations: [Trochanteric bursitis, right hip] Episodic Other diseases of kidney and ureters (20 sources) Renal mass; Translations: [Other specified disorders of kidney and ureter] Onset: 01-05-2016 01-29-2016 Chronic Other lower respiratory disease (2 sources) Wheezing; Translations: [Wheezing] Episodic Other lower respiratory disease (3 sources) Cough; Translations: [Cough] Episodic Other lower respiratory disease (6 sources) Dyspnea; Translations: [Dyspnea, unspecified] Episodic Other non-traumatic joint disorders (1 source) Hip pain; Translations: [Pain in unspecified hip] Onset: 10-30-2021 Episodic Other non-traumatic joint disorders (7 sources) Shoulder pain 09-10-2021 Episodic Other nutritional; endocrine; and metabolic disorders (20 sources) Morbid obesity; Translations: [Morbid (severe) obesity due to excess calories] Onset: 01-15-2016 01-15-2016 Chronic Other nutritional; endocrine; and metabolic disorders (14 sources) Body mass index 40+ - severely obese; Translations: [Body mass index (BMI) 45.0-49.9, adult] 09-10-2021 Chronic Other screening for suspected conditions (not mental disorders or infectious disease) (2 sources) Encounter for screening for malignant neoplasm of prostate; Translations: [Screening for malignant neoplasm done] Episodic Other skin disorders (4 sources) Inflammatory dermatosis 04-28-2023 Episodic Other upper respiratory disease (18 sources) Allergic rhinitis due to house dust mite; Translations: [Other allergic rhinitis] Onset: 04-02-2022 Chronic Other upper respiratory disease (18 sources) Allergic rhinitis due to pollen; Translations: [Allergic rhinitis due to pollen] Onset: 04-02-2022 Chronic Other upper respiratory disease (18 sources) Allergic rhinitis due to animals; Translations: [Allergic rhinitis due to animal (cat) (dog) hair and dander] Onset: 04-02-2022 Chronic Residual codes; unclassified (2 sources) Forgetful 10-14-2022 Episodic Screening and history of mental health and substance abuse codes (4 sources) Tobacco use and exposure - finding 07-26-2022 Chronic Spondylosis; intervertebral disc disorders; other back problems (7 sources) Cervical spondylosis 09-10-2021 Chronic Spondylosis; intervertebral disc disorders; other back problems (11 sources) Spinal stenosis in cervical region; Translations: [Sciatica] 09-10-2021 Episodic Substance-related disorders (20 sources) Tobacco user; Translations: [Nicotine dependence, unspecified, uncomplicated] Onset: 04-02-2022 Chronic Superficial injury; contusion (1 source) Contusion of knee; Translations: [Contusion of right knee, initial encounter] Onset: 12-19-2021 Episodic Syncope (4 sources) Syncope and collapse; Translations: [Syncope and collapse] Episodic Unclassified (5 sources) Contusion of right knee 12-19-2021 Unclassified (1 source) Patient encounter status 02-12-2023 Viral infection (1 source) Disease caused by 2019-nCoV 02-28-2023 Past or Other Problems Problem Classification Problem Date Documented Date Episodic/Chronic Abdominal pain (20 sources) Right flank pain; Translations: [Unspecified abdominal pain] Onset: 05-16-2015 05-16-2015 Episodic Allergic reactions (7 sources) Allergic condition; Translations: [Allergy, unspecified, initial encounter] Onset: 06-11-2022 Episodic E Codes: Fall (20 sources) Fall; Translations: [Unspecified fall, initial encounter] Onset: 10-09-2021 10-09-2021 Episodic Other diseases of kidney and ureters (20 sources) Cyst of kidney; Translations: [Cyst of kidney, acquired] Onset: 05-16-2015 01-29-2016 Episodic Other lower respiratory disease (20 sources) Asthma; 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] Onset: 04-02-2022 Episodic Other lower respiratory disease (1 source) Dyspnea, unspecified; Translations: [Dyspnea and respiratory abnormalities] Onset: 06-11-2022 Episodic Other lower respiratory disease (1 source) Other abnormalities of breathing; Translations: [Dyspnea and respiratory abnormalities] Onset: 06-11-2022 Episodic Residual codes; unclassified (20 sources) Tobacco use and exposure - finding; Translations: [Tobacco use] Onset: 01-15-2016 01-15-2016 Episodic Residual codes; unclassified (20 sources) H/O: brain disorder; Translations: [Personal history of other specified conditions] Onset: 01-15-2016 01-15-2016 Episodic Residual codes; unclassified (1 source) Personal history of other specified conditions; Translations: [H/O idiopathic seizure] Onset: 01-15-2016 Episodic Results Test Name Value Interpretation Reference Range Facil ity Vital Signs Date Time Vital Sign Value Performing Clinician Facility 11-18-2022 11:13-0400 Body weight 163.29 kg Nuno Dodd MD Work Phone: [facility] 11-18-2022 11:13-0400 Diastolic blood pressure 82 mm[Hg] Nuno Dodd MD Work Phone: [facility] 11-18-2022 11:13-0400 Heart rate 63 /min Nuno Dodd MD Work Phone: [facility] 11-18-2022 11:13-0400 SaO2% (BldA) [Mass fraction] 97 % Nuno Dodd MD Work Phone: [facility] 11-18-2022 11:13-0400 Systolic blood pressure 162 mm[Hg] Nuno Dodd MD Work Phone: [facility] 11-14-2022 07:55-0400 Diastolic blood pressure 75 mm[Hg] Naun Nuñez MD Work Phone: [facility] 11-14-2022 07:55-0400 Heart rate 70 /min Naun Nuñez MD Work Phone: [facility] 11-14-2022 07:55-0400 SaO2% (BldA) [Mass fraction] 96 % Naun Nuñez MD Work Phone: [facility] 11-14-2022 07:55-0400 Systolic blood pressure 144 mm[Hg] Naun Nuñez MD Work Phone: [facility] 08-06-2022 09:08-0400 Body weight 165.56 kg Naun Nuñez MD Work Phone: [facility] 08-06-2022 09:08-0400 Diastolic blood pressure 69 mm[Hg] Naun Nuñez MD Work Phone: [facility] 08-06-2022 09:08-0400 Heart rate 86 /min Naun Nuñez MD Work Phone: [facility] 08-06-2022 09:08-0400 SaO2% (BldA) [Mass fraction] 95 % Naun Nuñez MD Work Phone: [facility] 08-06-2022 09:08-0400 Systolic blood pressure 136 mm[Hg] Naun Nuñez MD Work Phone: [facility] 05-31-2022 13:05-0500 Body weight 169.65 kg Pulm Stro Work Phone: [facility] 05-31-2022 13:05-0500 Diastolic blood pressure 82 mm[Hg] Nuno Dodd MD Work Phone: [facility] 05-31-2022 13:05-0500 Heart rate 73 /min Nuno Dodd MD Work Phone: [facility] 05-31-2022 13:05-0500 SaO2% (BldA) [Mass fraction] 98 % Nuno Dodd MD Work Phone: [facility] 05-31-2022 13:05-0500 Systolic blood pressure 135 mm[Hg] Nuno Dodd MD Work Phone: [facility] 05-31-2022 12:00-0500 Body height 186.4 cm Pulm Stro Work Phone: [facility] 04-02-2022 11:09-0500 Body weight 168.74 kg Naun Nuñez MD Work Phone: [facility] 04-02-2022 11:09-0500 Diastolic blood pressure 66 mm[Hg] Naun Nuñez MD Work Phone: [facility] 04-02-2022 11:09-0500 Heart rate 86 /min Naun Nuñez MD Work Phone: [facility] 04-02-2022 11:09-0500 SaO2% (BldA) [Mass fraction] 97 % Naun Nuñez MD Work Phone: [facility] 04-02-2022 11:09-0500 Systolic blood pressure 118 mm[Hg] Naun Nuñez MD Work Phone: [facility] 02-27-2022 10:16-0500 Body weight 166.47 kg Nuno Dodd MD Work Phone: [facility] 02-27-2022 10:16-0500 Diastolic blood pressure 85 mm[Hg] Nuno Dodd MD Work Phone: [facility] 02-27-2022 10:16-0500 Heart rate 73 /min Nuno Dodd MD Work Phone: [facility] 02-27-2022 10:16-0500 Respiratory rate 14 /min Nuno Dodd MD Work Phone: [facility] 02-27-2022 10:16-0500 SaO2% (BldA) [Mass fraction] 99 % Nuno Dodd MD Work Phone: [facility] 02-27-2022 10:16-0500 Systolic blood pressure 135 mm[Hg] Nuno Dodd MD Work Phone: [facility] 01-31-2022 08:43-0400 Body weight 168.74 kg Naun Nuñez MD Work Phone: [facility] 01-31-2022 08:43-0400 Diastolic blood pressure 68 mm[Hg] Naun Nuñez MD Work Phone: [facility] 01-31-2022 08:43-0400 Heart rate 87 /min Naun Nuñez MD Work Phone: [facility] 01-31-2022 08:43-0400 SaO2% (BldA) [Mass fraction] 97 % Naun Nuñez MD Work Phone: [facility] 01-31-2022 08:43-0400 Systolic blood pressure 126 mm[Hg] Naun Nuñez MD Work Phone: [facility] 12-19-2021 06:23-0400 Body height 185.[address] CLEM NAM MD [facility] 12-19-2021 06:23-0400 Body temperature 97.88 [degF] DR CLEM NAM MD [facility] 12-19-2021 06:23-0400 Body weight 159.[address] CLEM NAM MD [facility] 12-19-2021 06:23-0400 Diastolic blood pressure 80 mm[Hg] DR CLEM NAM MD [facility] 12-19-2021 06:23-0400 Heart rate 84 /min DR CLEM NAM MD [facility] 12-19-2021 06:23-0400 Respiratory rate 18 /min DR CLEM ANM MD [facility] 12-19-2021 06:23-0400 Systolic blood pressure 125 mm[Hg] DR CLEM NAM MD [facility] 10-30-2021 20:32-0400 Body temperature 97.7 [degF] SANDRA ANDRES DO [facility] 10-30-2021 20:32-0400 Diastolic blood pressure 84 mm[Hg] [facility] 10-30-2021 20:32-0400 Heart rate 84 /min [facility] 10-30-2021 20:32-0400 Respiratory rate 22 /min [facility] DO [facility] 10-30-2021 20:32-0400 Systolic blood pressure 142 mm[Hg] [facility] DO [facility] 09-13-2021 15:03-0400 Body height 185.4 cm Naun Nuñez MD Work Phone: [facility] 09-13-2021 15:03-0400 Body weight 161.03 kg Naun Nuñez MD Work Phone: [facility] 09-13-2021 15:03-0400 Diastolic blood pressure 75 mm[Hg] Naun Nuñez MD Work Phone: [facility] 09-13-2021 15:03-0400 Heart rate 77 /min Naun Nuñez MD Work Phone: [facility] 09-13-2021 15:03-0400 SaO2% (BldA) [Mass fraction] 97 % Naun Nuñez MD Work Phone: [facility] 09-13-2021 15:03-0400 Systolic blood pressure 136 mm[Hg] Naun Nuñez MD Work Phone: [facility] 07-26-2021 23:58-0400 Body temperature 97.7 [degF] MIRIAM JOHNSON MD [facility] 07-26-2021 23:58-0400 Diastolic blood pressure 83 mm[Hg] MIRIAM JOHNSON MD [facility] 07-26-2021 23:58-0400 Heart rate 81 /min MIRIAM JOHNSON MD [facility] 07-26-2021 23:58-0400 Respiratory rate 20 /min MIRIAM JOHNSON MD [facility] 07-26-2021 23:58-0400 Systolic blood pressure 129 mm[Hg] MIRIAM JOHNSON MD [facility] Encounters Encounter Date Encounter Type Care Provider Facility Start: 04-15-2023 End: 04-16-2023 ambulatory LARISSA NICHOLE LOCATION ANALYST-PHARMACY INTERN Facility:B Start: 04-15-2023 End: 04-15-2023 Patient encounter procedure SABINA BARDALES MD [facility] Start: 04-02-2023 End: 04-02-2023 ambulatory NAUN NUÑEZ Facility:[facility] Start: 01-09-2023 End: 01-10-2023 ambulatory DAWSON TORRES PA-C Facility:[facility] Start: 01-07-2023 End: 01-07-2023 Emergency department patient visit NEHA RUEDA Facility:[facility] Start: 11-18-2022 End: 11-18-2022 ambulatory NUNO DODD Facility:[facility] Start: 11-18-2022 End: 11-18-2022 Patient encounter procedure Nuno Dodd MD Work Phone: Pulmonary Medicine Procedures Date Procedure Procedure Detail Performing Clinician Start: 08-06-2022 Brncdilat rspse spmt ry pre&post-brncdilat elida Nuñez MD Work Phone: Start: 05-31-2022 Pulmonary stress testing Nuno Dodd MD Work Phone: Start: 01-28-2022 Brncdilat rspse spmt ry pre&post-brncdilat elida Nuñez MD Work Phone: Start: 11-15-2021 Radex spine lumbosac ral 2/3 views [facility] Provider Start: 10-24-2021 Nitric oxide gas determination Naun Nuñez MD Work Phone: Start: 10-24-2021 Brncdilat rspse spmt ry pre&post-brncdilat elida Nuñez MD Work Phone: Start: 03-31-2019 Testis structure (jamee dy structure) Memonic DO Start: 01-14-2016 Lower pole, right ki dney (body structure) MIRIAM JOHNSON MD Start: 03-31-2008 Glenohumeral joint structure (body structure) [facility] Plan of Treatment Date Care Activity Detail Author Start: 10-09-2024 DIABETES SCREEN DIABETES SCREEN [facility] Start: 02-14-2023 End: 12-16-2023 NITRIC OXIDE, EXHALED NITRIC OXIDE, EXHALED PFT Routine Eosinophilic asthma Expected: 02/14/2023 (Approximate), Expires: 12/16/2023 [facility] Work Phone: Immunizations Immunization Date Immunization Notes Care Provider [facility] 09-13-2021 pneumococcal polysaccharide vaccine, 23 valent Naun Nuñez MD Work Phone: [facility] 12-16-2020 influenza virus vaccine, unspecified formulation [facility] 09-07-2020 SARS-CoV-2 (COVID-19 ) mRNA-1273 vaccine [facility] DO [facility] 08-10-2020 SARS-CoV-2 (COVID-19 ) mRNA-1273 vaccine [facility] DO [facility] 12-18-2011 tetanus toxoid, redu ayana diphtheria toxoid, and acellular pertussis vaccine, adsorbed Naun Nuñez MD Work Phone: [facility] Payers Date Payer Category Payer Unknown [id number] 2021 Private Health Insurance [employer] [id number] 2021-Present [phone] [address] [place] [address] HMO [id number] 2021 Private Health Insurance [employer] [id number] 2021-Present [phone] [address] [place] [address] HMO [id number] 2021 Unknown [id number] 1974 Unknown [id number] 2. 1974 Unknown [id number] 2. 1974 Unknown [id number] 2. 1974 Unknown [id number] 2. 1974 Unknown [id number] 2. 1974 Unknown [id number] 2. 1974 Unknown [id number] Social History Date Type Detail Facility Start: 12-17-2020 Tobacco smoking status Heavy t obacco smoker (finding) [facility] Sex Assigned At Sex [facility] Start: 10-16-2011 End: 11-28-2021 Tobacco smoking status NHIS Smokes tobacco daily [facility] Work Phone: History of tobacco use Cigarette Smoker [facility] Work Phone: Start: 10-16-2011 End: 08-06-2022 Cigarettes smoked current (pack per day) - Reported 1 [facility] Start: 10-16-2011 End: 11-28-2021 Tobacco use and exposure Smokeless tobacco non-user [facility] Work Phone: Start: 01-12-2021 End: 11-18-2022 Alcohol intake Current non-drinker of alcohol (finding) [facility] Start: 12-18-2011 History SDOH Alcohol Comment occasionally [facility] Start: 1975 Sex Assigned At Not on file [facility] Start: 08-03-2021 End: 02-27-2022 Exposure to SARS-CoV-2 (event) Not sure [facility] Start: 09-13-2021 End: 11-28-2021 Tobacco Comment Was smoking 2 ppd, now smoking 0.50 ppd. [facility] Start: 04-02-2022 End: 08-06-2022 Tobacco use panel [facility] National Score (1-10 0), lower number is lower risk 74 [facility] Tobacco Nicotine Use: 1 pack daily. Type: Cigarettes. [facility] Functional Status Date Assessment Result Facility 12-19-2021 Functional Status Independent [facility] 10-30-2021 Functional Status ID band on, Allergy Band on, Call device within reach, Bed in low position, Wheels locked, Visitor at bedside [facility] 07-27-2021 Functional Status [facility] Mental Status Date Assessment Result Facility 12-19-2021 Mental Status Orientation Oriented x 4 [facility] 12-19-2021 Mental Status [facility] 10-30-2021 Mental Status Oriented x 4 [facility] 07-27-2021 Mental Status [facility] 07-27-2021 Mental Status [facility] Clinical Notes 07-27-2021 to 04-02-2023 Patient InstructionsNuno Dodd MD - 11/18/2022 11:12 AM Naun Broussard MD - 11/14/2022 8:00 AM Moni Ribeiro RN - 11/14/2022 7:52 AM EDTPatient InstructionsPatient Instructions Note Date & Type Note Facility 04-02-2023 Note HNO ID: [id number] Author: Bela Tabares RPFT Service: ? Author Type: Respiratory Therapist Type: Procedures Filed: 04/02/2023 12:40 PM Note Text: RESPIRATORY THERAPY ORAL EXHALED NITRIC OXIDE SERVICE DATE: 04/02/2023 SERVICE TIME: 12:40 PM Oral Exhaled Nitric Oxide measurement: 9.0 (ppb) Normal: Adult 5-20 ppb, pediatric (<12 years) 5-15 ppb High Normal / Increased: Adult 20-35 ppb, pediatric (<12 years) 15-25 ppb Moderately raised exhaled Nitric Oxide may indicate underlying inflammation, but note that: Cold and influenza can raise exhaled Nitric Oxide and some patients have higher baseline exhaled Nitric Oxide levels than others. High: Adult >35 ppb, pediatric (<12 years) >25 ppb Indicative of ongoing eosinophilic inflammation. Symptomatic patient likely to respond to steroids. Possible causes (if already on steroids): Poor compliance, recent allergen exposure, steroid dose inadequate, and steroid resistance. Note that not all patients with high exhaled nitric oxide levels display symptoms. Oral Exhaled Nitric Oxide measurement (Previous Encounters) Test Date Oral Exhaled Nitric Oxide (ppb) 04/02/2023 9.0 10/24/2021 6.0 NAME: GREY Steel PATIENT NAME: Donnell Adams DATE: April 02, 2023 TIME: 12:40 PM [facility] 04-02-2023 Note HNO ID: [id number] Author: Bela Tabares RPFT Service: ? Author Type: Respiratory Therapist Type: Progress Notes Filed: 04/02/2023 12:38 PM Note Text: PULM FUNCTION SMARTBLOCK: Provider: Naun Nuñez MD Assisting Tech: Bela Tabares RPFT Spirometry w/BD: 1 Exhaled Nitric Oxide: 1 [facility] 04-02-2023 Note HNO ID: [id number] Author: NAUN NUÑEZ MD Service: ? Author Type: Physician Type: Progress Notes Filed: 04/04/2023 17:43 Note Text: Donnell Adams is a 47 year old male with a history of allergic rhinoconjunctivitis (cats, cockroaches, dust mites, trees, grasses, weeds, ragweed), severe persistent asthma, possible COPD and morbid obesity who presents for a follow-up visit. His last visit was 11/14/22. He began treatment with Dupixent in September 2022 and has been tolerating this without adverse reaction. He feels his respiratory symptoms have improved since beginning treatment with this medication. AEC was 390 on 11/14/22. He was diagnosed with COVID-19 in late January. Symptoms included cough, wheezing, chest tightness, shortness of breath and diarrhea. He was treated with a course of Paxlovid. Symptoms persisted for about 3 weeks. Currently, patient complains of dyspnea on exertion. He walks a significant amount at work. Also with intermittent cough and wheezing. Using albuterol HFA inhaler or DuoNeb a few times per week for acute symptoms. He has not been using budesonide ampules. Nocturnal awakenings due to respiratory symptoms 2-3 times per week. Denies treatment with systemic steroids, ER visits or hospitalizations for asthma since his last visit. He notes intermittent nasal congestion at night. Reports compliance with use of Nasacort. Complains of nightmares associated with prior use of Claritin, Zyrtec and Iram. He continues to smoke 1 pack of cigarettes per day. Previously discontinued use of the nicotine patch due to pruritic rash at the sites of contact with his skin. He attempted a home sleep study twice. The first study had insufficient data. For the second sleep study, he was unable to tolerate wearing the equipment. There are no cats in the home. Dust mite precautions are in place in the home. Central air conditioning. (Fasenra and Nucala were previously denied by the patient's insurance.) (From initial visit on 09/13/21 This is a self-referral for an allergy and immunology evaluation. Donnell Adams is a 46 year old male who presents for further evaluation of asthma. He has a history of asthma since childhood. He also has been smoking cigarettes since he was 15 years old. Up until recently he was smoking 2 packs/day. More recently he has cut back to 1/2 pack/day. He is taking Chantix. Respiratory symptoms include coughing, wheezing, chest tightness and shortness of breath. He was using albuterol 2-3 times per day for acute symptoms. Recently, his primary care provider prescribed Symbicort 160-4.52 puffs twice daily and DuoNeb 4 times daily. 1 month ago, he developed difficulty breathing while at work. He was transported by EMS to the emergency room. Wheezing was noted on physical exam. He was treated with albuterol and ipratropium nebulized and prednisone. Denies additional treatment with systemic corticosteroids or emergency room visits for respiratory symptoms in the past year. No prior hospitalizations for respiratory symptoms. Symptoms are worse at work. 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 Additional triggers include physical activity, upper respiratory infection and hot environments. He denies significant nasal and ocular symptoms outside of acute infections. Denies a history of nasal trauma or nasal polyposis. No prior imaging of the sinuses. He was on subcutaneous allergy immunotherapy for several years as a child with improvement in his symptoms. Denies systemic reactions to immunotherapy. Denies use of allergy medications including antihistamines and nasal sprays. History of adverse reaction to penicillin as a child. He does not know any details regarding the reaction. He believes he has subsequently taken amoxicillin and tolerated this without adverse reaction. He denies snoring. He complains of daytime fatigue. Denies significant GERD symptoms.) REVIEW OF SYSTEMS: Complains of of a 2-month history of rash on his back. Per patient, a topical medication was prescribed by his PCP but is out of stock at his pharmacy and he will be returning to his primary care physician's office for a biopsy. All other review of systems negative except for those listed above. PAST MEDICAL HISTORY Diagnosis Date Asthma COPD (chronic obstructive pulmonary disease) (HCC) Epilepsy (HCC) not on medications Morbid obesity (HCC) Tobacco use Partial nephrectomy for renal mass MEDICATIONS: divalproex DR (DEPAKOTE) 500 mg EC tablet Take 3 tablets by mouth two times a day. Clindamycin Phosphate 1 % foam Apply 1 Application to affected area once daily. gabapentin (NEURONTIN) 300 mg capsule Take 1 capsule by mouth every 12 hours. budesonide (PULMICORT) 1 mg/2 mL nebulizer solution Use 2 mL via nebulizer twice daily. triamcinolone acetonide (NASACORT) 55 mcg nasal inhaler Use 2 Sprays in (more content not included)... [facility] 01-11-2023 Note HNO ID: [id number] Author: Note, Interface Service: ? Author Type: ? Type: Progress Notes Filed: 01/11/2023 2:59 AM Note Text: Epic Scheduled Downtime: 01/11/2023 1:00:00 AM to 01/11/2023 1:28:00 AM [facility] 11-18-2022 Note HNO ID: [id number] Author: Nuno Dodd MD Service: ? Author Type: Physician Type: Progress Notes Filed: 11/18/2022 11:42 AM Note Text: [facility]-PATIENT CONSULT PROGRESS NOTE SERVICE DATE: 11/18/2022 ASSESSMENT: Asthma- COPD overlap syndrome, stable. Patient has a heavy smoking history and is currently smoking. He additionally has a strong history of allergies. Spirometry demonstrated obstruction with BD change. Eosinophil count is 0.48. By 6mwt, the patient's ability to walk is extremely reduced C/w trelegy ellipta Albuterol PRN Singulair 10 qhs On dupixent per allergy (fasenra and nucala were rejected by his insurance) Active smoker - Chantix does not work. Decreased from 20 to 10 cigarettes a day. I strongly encouraged him to stop smoking as it's likely contributing to his dyspnea Encouraged to quit smoking Allergies- He cannot afford a skin test at this time. IgE and RAST are both very positive. - followed by Dr. Nuñez - intolerant to anti-histamines - nasal sprays BMI 47.63- Monitor BMI as it can contribute to dyspnea My final recommendations will be communicated back to the requesting physician by way of shared Medical record or letter to requesting physician via US mail. Total time spent in patient care includes but is not limited to patient/ family discussions, collaborative discussions with other healthcare providers, review of medical records, review of laboratory tests, radiology images/ results, microbiology and pathology data. Nuno Dodd MD Staff, Respiratory [place] [facility] SUBJECTIVE CHIEF COMPLAINT: SOB INTERVAL HPI:Donnell Adams is a 47 year old male states that he is doing okay breathing-zamora, but he has had a couple of episodes of seizures since I saw him last. He is taking depakote and will follow up with a neurologist this week he tells me that he had one seizure in [place] and had 2 seizures this month. A seizure was caught when he had a sleep test done (PSG). He is currently taking trelegy. He is taking dupixent every 2 weeks, though he has missed a dose or two. He has also cut down his cigarette use from 20 cigarettes to 10 cigarettes a day. MEDICATIONS: No current facility-administered medications for this visit. CURRENT ALLERGIES: ALLERGIES Allergen Reactions Penicillins Unknown OBJECTIVE PHYSICAL EXAM: BP 162/82 Pulse 63 Wt 360 lb (163.3kg) SpO2 97% General appearance: Well appearing, alert, in no acute distress, well-hydrated, well nourished. Oropharynx: Moist oral mucosa, no erythema or exudates Respiratory: mild wheezing auscultated bilaterally Cardiovascular: RRR without murmur, gallop, or rubs. No ectopy Extremities: Normal pulses. No peripheral edema. DATA Diagnostic tests reviewed for today's visit, films/specimens were personally reviewed by me: No new testing SIGNATURE: Nuno Dodd MD PATIENT NAME: Donnell Adams DATE: November 18, 2022 TIME: 11:14 AM PAGER/CONTACT #: [phone] [facility] 11-18-2022 Instructions Nuno Dodd MD - 11/18/2022 11:31 AM EDT Next year, repeat spirometry (lung function test). Cut down cigarettes to 6-8 a day. Continue trelegy inhaler daily. Continue albuterol as needed. Continue dupixent every 2 weeks. Follow up with me in 6 months. Nuno Dodd MD With questions or concerns, please call the following: [facility] documented in this encounter [facility] 11-18-2022 History of Present illness Narrative Images from the original note were not included. [facility] IN-PATIENT CONSULT PROGRESS NOTE SERVICE DATE: 11/18/2022 ASSESSMENT: Asthma- COPD overlap syndrome, stable. Patient has a heavy smoking history and is currently smoking. He additionally has a strong history of allergies. Spirometry demonstrated obstruction with BD change. Eosinophil count is 0.48. By 6mwt, the patient's ability to walk is extremely reduced C/w trelegy ellipta Albuterol PRN Singulair 10 qhs On dupixent per allergy (fasenra and nucala were rejected by his insurance) Active smoker - Chantix does not work. Decreased from 20 to 10 cigarettes a day. I strongly encouraged him to stop smoking as it's likely contributing to his dyspnea Encouraged to quit smoking Allergies- He cannot afford a skin test at this time. IgE and RAST are both very positive. - followed by Dr. Nuñez - intolerant to anti-histamines - nasal sprays BMI 47.63- Monitor BMI as it can contribute to dyspnea My final recommendations will be communicated back to the requesting physician by way of shared Medical record or letter to requesting physician via [place] mail. Total time spent in patient care includes but is not limited to patient/ family discussions, collaborative discussions with other healthcare providers, review of medical records, review of laboratory tests, radiology images/ results, microbiology and pathology data. Nuno Dodd MD Staff, Respiratory [place] [facility] SUBJECTIVE CHIEF COMPLAINT: SOB INTERVAL HPI:Donnell Adams is a 47 year old male states that he is doing okay breathing-zamora, but he has had a couple of episodes of seizures since I saw him last. He is taking depakote and will follow up with a neurologist this week he tells me that he had one seizure in [place] and had 2 seizures this month. A seizure was caught when he had a sleep test done (PSG). He is currently taking trelegy. He is taking dupixent every 2 weeks, though he has missed a dose or two. He has also cut down his cigarette use from 20 cigarettes to 10 cigarettes a day. MEDICATIONS: No current facility-administered medications for this visit. CURRENT ALLERGIES: ALLERGIES Allergen Reactions Penicillins Unknown OBJECTIVE PHYSICAL EXAM: BP 162/82 Pulse 63 Wt 360 lb (163.3kg) SpO2 97% General appearance: Well appearing, alert, in no acute distress, well-hydrated, well nourished. Oropharynx: Moist oral mucosa, no erythema or exudates Respiratory: mild wheezing auscultated bilaterally Cardiovascular: RRR without murmur, gallop, or rubs. No ectopy Extremities: Normal pulses. No peripheral edema. DATA Diagnostic tests reviewed for today's visit, films/specimens were personally reviewed by me: No new testing SIGNATURE: Nuno Dodd MD PATIENT NAME: Donnell Adams DATE: November 18, 2022 TIME: 11:14 AM PAGER/CONTACT #: [phone] documented in this encounter [facility] 11-14-2022 Note HNO ID: [id number] Author: Naun Nuñez MD Service: ? Author Type: Physician Type: Progress Notes Filed: 11/15/2022 11:09 AM Note Text: Donnell Adams is a 47 year old male with a history of allergic rhinoconjunctivitis (cats, cockroaches, dust mites, trees, grasses, weeds, ragweed), severe persistent asthma, possible COPD and morbid obesity who presents for a follow-up visit. His last visit was 08/06/22. He began treatment with Dupixent 1 month ago and has been tolerating this without adverse reaction. He feels his respiratory symptoms have improved somewhat since beginning treatment with this medication. He complains of cough. He notes dyspnea on exertion especially in hot environments. Occasional wheezing. Denies chest tightness. Using FRED 4-5 times per week for acute symptoms. Nocturnal awakenings 2-3 nights per week due to cough. Denies treatment with systemic steroids, ER visits or hospitalizations for asthma since his last visit. He notes dry nares when at work. Denies other significant nasal and ocular symptoms. Complains of nightmares associated with prior use of Claritin, Zyrtec and Iram. He is smoking 1 pack of cigarettes per day. Discontinued use of the nicotine patch due to pruritic rash at the sites of contact with his skin. He attempted a home sleep study twice. The first study had insufficient data. For the second sleep study, he was unable to tolerate wearing the equipment. There are no cats in the home. Dust mite precautions are in place in the home. Central air conditioning. (Fasenra and Nucala were previously denied by the patient's insurance.) (From initial visit on 09/13/21 This is a self-referral for an allergy and immunology evaluation. Donnell Adams is a 46 year old male who presents for further evaluation of asthma. He has a history of asthma since childhood. He also has been smoking cigarettes since he was 15 years old. Up until recently he was smoking 2 packs/day. More recently he has cut back to 1/2 pack/day. He is taking Chantix. Respiratory symptoms include coughing, wheezing, chest tightness and shortness of breath. He was using albuterol 2-3 times per day for acute symptoms. Recently, his primary care provider prescribed Symbicort 160-4.52 puffs twice daily and DuoNeb 4 times daily. 1 month ago, he developed difficulty breathing while at work. He was transported by EMS to the emergency room. Wheezing was noted on physical exam. He was treated with albuterol and ipratropium nebulized and prednisone. Denies additional treatment with systemic corticosteroids or emergency room visits for respiratory symptoms in the past year. No prior hospitalizations for respiratory symptoms. Symptoms are worse at work. 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 Additional triggers include physical activity, upper respiratory infection and hot environments. He denies significant nasal and ocular symptoms outside of acute infections. Denies a history of nasal trauma or nasal polyposis. No prior imaging of the sinuses. He was on subcutaneous allergy immunotherapy for several years as a child with improvement in his symptoms. Denies systemic reactions to immunotherapy. Denies use of allergy medications including antihistamines and nasal sprays. History of adverse reaction to penicillin as a child. He does not know any details regarding the reaction. He believes he has subsequently taken amoxicillin and tolerated this without adverse reaction. He denies snoring. He complains of daytime fatigue. Denies significant GERD symptoms.) REVIEW OF SYSTEMS: Complains of of a 2-month history of rash on his back. Per patient, a topical medication was prescribed by his PCP but is out of stock at his pharmacy and he will be returning to his primary care physician's office for a biopsy. All other review of systems negative except for those listed above. PAST MEDICAL HISTORY Diagnosis Date Asthma COPD (chronic obstructive pulmonary disease) (HCC) Epilepsy (HCC) not on medications Morbid obesity (HCC) Tobacco use Partial nephrectomy for renal mass MEDICATIONS: cetirizine (ZYRTEC) 10 mg tablet TAKE 1 TABLET BY MOUTH EVERY DAY dupilumab (DUPIXENT PEN) 300 mg/2 mL pen Inject 600 mg subcutaneously once as a loading dose, then 300 mg every 2 weeks for maintenance dose. benralizumab (FASENRA PEN) 30 mg/mL Inject 30mg(1 pen) subcutaneously every 4 weeks for the first 3 doses, followed by 30mg (1 pen) every 8 weeks fluticasone (FLONASE) 50 mcg/actuation nasal spray Use 1-2 Sprays in each nostril once daily. (Patient not taking: Reported on 08/06/2022) montelukast (SINGULAIR) 10 mg tablet Take 1 tablet by mouth daily at bedtime. buPROPion XL (WELLBUTRIN XL) 150 mg 24 hr tablet Take 150 mg by mouth once daily. albuterol HFA (PROVENTIL HFA, VENTOLIN HFA) 90 mcg/actuation inhaler Inhale 2 Pu (more content not included)... [facility] 11-14-2022 History of Present illness Narrative Donnell Adams is a 47 year old male with a history of allergic rhinoconjunctivitis (cats, cockroaches, dust mites, trees, grasses, weeds, ragweed), severe persistent asthma, possible COPD and morbid obesity who presents for a follow-up visit. His last visit was 08/06/22. He began treatment with Dupixent 1 month ago and has been tolerating this without adverse reaction. He feels his respiratory symptoms have improved somewhat since beginning treatment with this medication. He complains of cough. He notes dyspnea on exertion especially in hot environments. Occasional wheezing. Denies chest tightness. Using FRED 4-5 times per week for acute symptoms. Nocturnal awakenings 2-3 nights per week due to cough. Denies treatment with systemic steroids, ER visits or hospitalizations for asthma since his last visit. He notes dry nares when at work. Denies other significant nasal and ocular symptoms. Complains of nightmares associated with prior use of Claritin, Zyrtec and Iram. He is smoking 1 pack of cigarettes per day. Discontinued use of the nicotine patch due to pruritic rash at the sites of contact with his skin. He attempted a home sleep study twice. The first study had insufficient data. For the second sleep study, he was unable to tolerate wearing the equipment. There are no cats in the home. Dust mite precautions are in place in the home. Central air conditioning. (Fasenra and Nucala were previously denied by the patient's insurance.) (From initial visit on 09/13/21 This is a self-referral for an allergy and immunology evaluation. Donnell Adams is a 46 year old male who presents for further evaluation of asthma. He has a history of asthma since childhood. He also has been smoking cigarettes since he was 15 years old. Up until recently he was smoking 2 packs/day. More recently he has cut back to 1/2 pack/day. He is taking Chantix. Respiratory symptoms include coughing, wheezing, chest tightness and shortness of breath. He was using albuterol 2-3 times per day for acute symptoms. Recently, his primary care provider prescribed Symbicort 160-4.52 puffs twice daily and DuoNeb 4 times daily. 1 month ago, he developed difficulty breathing while at work. He was transported by EMS to the emergency room. Wheezing was noted on physical exam. He was treated with albuterol and ipratropium nebulized and prednisone. Denies additional treatment with systemic corticosteroids or emergency room visits for respiratory symptoms in the past year. No prior hospitalizations for respiratory symptoms. Symptoms are worse at work. 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 Additional triggers include physical activity, upper respiratory infection and hot environments. He denies significant nasal and ocular symptoms outside of acute infections. Denies a history of nasal trauma or nasal polyposis. No prior imaging of the sinuses. He was on subcutaneous allergy immunotherapy for several years as a child with improvement in his symptoms. Denies systemic reactions to immunotherapy. Denies use of allergy medications including antihistamines and nasal sprays. History of adverse reaction to penicillin as a child. He does not know any details regarding the reaction. He believes he has subsequently taken amoxicillin and tolerated this without adverse reaction. He denies snoring. He complains of daytime fatigue. Denies significant GERD symptoms.) REVIEW OF SYSTEMS: Complains of of a 2-month history of rash on his back. Per patient, a topical medication was prescribed by his PCP but is out of stock at his pharmacy and he will be returning to his primary care physician's office for a biopsy. All other review of systems negative except for those listed above. PAST MEDICAL HISTORY Diagnosis Date Asthma COPD (chronic obstructive pulmonary disease) (HCC) Epilepsy (HCC) not on medications Morbid obesity (HCC) Tobacco use Partial nephrectomy for renal mass MEDICATIONS: cetirizine (ZYRTEC) 10 mg tablet TAKE 1 TABLET BY MOUTH EVERY DAY dupilumab (DUPIXENT PEN) 300 mg/2 mL pen Inject 600 mg subcutaneously once as a loading dose, then 300 mg every 2 weeks for maintenance dose. benralizumab (FASENRA PEN) 30 mg/mL Inject 30mg(1 pen) subcutaneously every 4 weeks for the first 3 doses, followed by 30mg (1 pen) every 8 weeks fluticasone (FLONASE) 50 mcg/actuation nasal spray Use 1-2 Sprays in each nostril once daily. (Patient not taking: Reported on 08/06/2022) montelukast (SINGULAIR) 10 mg tablet Take 1 tablet by mouth daily at bedtime. buPROPion XL (WELLBUTRIN XL) 150 mg 24 hr tablet Take 150 mg by mouth once daily. albuterol HFA (PROVENTIL HFA, VENTOLIN HFA) 90 mcg/actuation inhaler Inhale 2 Puffs as instructed every 4 hours as needed for wheezing/shortness of breath. szuzrruywqp-crphxeuam-punfeyqc (TRELEGY ELLIPTA) 200-62.5-25 mcg inhalation powder Inhale 1 Puff as instructed once daily. Rinse mouth out after use. ipratropium-albuterol (DUONEB) 0.5 mg-3 mg(2.5 mg base)/3 mL nebu 3 mL every 4 hours while awake. ALLERGIES: Allergies As of Date: 11/14/2022 Allergen Noted Reaction PENICILLINS 10/16/2011 Unknown Fully Assessed 08/06/2022 PAST SURGICAL HISTORY Procedure Laterality Date NEPHRECTOMY PARTIAL Right 01/29/2016 stage 1-per patient, took oral medication. ORTHOPEDICS SURGERY HX right shoulder PAST SURGICAL HISTORY OF 2020 removed mass left testicle-benign FAMILY HISTORY: Allergic rhinitis:no. Asthma: no. Eczema: no. Cystic fibrosis: no. Immunodeficiency: no. SOCIAL HISTORY: Employer And Job Title: None on file Years Of Education Completed: Not specified Marital Status: Single Social History Tobacco Use Smoking status: Every Day Packs/day: 0.50 Years: 25.00 Total pack years: 12.5 Types: Cigarettes Smokeless tobacco: Never Tobacco comments: Was smoking 2 ppd, now smoking 0.50 ppd. ENVIRONMENTAL HISTORY: Lives in a apartment Age of home: unknown years Heating: gas Woodburning fireplace in the home: no Air conditioning: Central air Basement: No basement Paul: Hlzl-im-jclx carpeting Dust mite controls: Dust mite controls are not in place. Pets in the home: 1 dogs Outdoor animals: There are no outdoor animals Tobacco smoke: Exposure in the home. Physical Exam: GENERAL APPEARANCE:Well appearing, alert, in no acute distress, well-hydrated, well nourished. Obese HEENT: NCAT. EYES: conjunctiva and sclera normal. EARS: External ears normal. Canals clear. TM's normal. NOSE/SINUS: Mild edema of the nasal mucosa with scant clear secretions bilaterally THROAT: no erythema NECK:neck supple, no adenopathy HEART:RRR with normal S1 and S2 ,no murmurs, no gallops, no rubs LUNGS: Diminished breath sounds in the bases bilaterally, no wheezing, rales or rhonchi EXTREMITIES:Extremities normal, No deformities, No skin discoloration and No edema SKIN: no lesions Spirometry pre and postbronchodilator on August 06, 2022: Moderately severe obstruction without a significant bronchodilator response. FEV1 56% predicted prebronchodilator Spirometry pre and postbronchodilator on January 28, 2022: Moderate obstruction with a significant bronchodilator response. FEV1 52% predicted prebronchodilator. Pulmonary function test on October 24, 2021: Moderate obstruction without a significant bronchodilator response. TLC and DLCO within normal limits. Residual volume and residual volume/TLC elevated consistent with air trapping. FEV1 61% prebronchodilator. Absolute eosinophil count on October 17, 2021: 480 ALLERGY SKIN TESTS:Deferred at initial visit due to patient preference/cost concerns. 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 Continue Trelegy Ellipta 200-62.5-25 one inhalation once daily. Rinse mouth out after use. Continue budesonide 1 mg nebulized twice daily. Continue Singulair 10 mg at bedtime Continue albuterol HFA inhaler with spacer 2 puffs or DuoNeb every 4-6 hours as needed. Continue to follow-up with pulmonary medicine 2.) Allergic rhinoconjunctivitis (cats, dust mites, trees, grasses, weeds, ragweed): Aggressive environmental controls. Continue Nasacort 1 to 2 sprays to each nostril once daily Patient has been intolerant to antihistamines. 3.)Tobacco use disorder: Smoking cessation was strongly recommended. [4.) Morbid obesity and daytime fatigue: Patient was unable to complete HSAT 5.) History of penicillin allergy: Although patient reports he may have subsequently taken amoxicillin and tolerated this without adverse reaction, we were unable to verify this with the patient's pharmacy. Allergy skin tests may be completed to penicillin and Pre-Pen at a future visit.] 6.) Discussed medication dosage, usage, side effects, and goals of treatment in detail. 7.) Follow-up 3 months with spirometry and FeNO - patient will return sooner should new symptoms or problems arise. Naun Nuñez MD documented in this encounter [facility] 11-14-2022 Nurse Note Patient here for follow up visit regarding asthma and allergy. Taking Dupixent every other week, reports that it is helping. Using Nasacort daily, but can not remember the last time he used zyrtec. Taking Singulair at bedtime. Using Pulmicort twice daily and Trelegy once daily. Reports using Albuterol about 5 times weekly, especially at work. documented in this encounter [facility] 09-02-2022 Miscellaneous Notes PENG approved until august 22, 2023. [employer] will call patient to ship out medication. Left message for patient regarding approval and to expect call from [employer]. Instructed him to call office for further concerns. Called [facility] for update on the appeal: [phone] Reference #: [id number] The deadline for the appeal is August 31 Office will be notified of results via fax Faxed eosinophil results and RADHA to [phone]. Case Ref # [id number] Will await determination of appeal. Patient's absolute eosinophil count was 500 on 08/15/22. Based on this results, he should qualify for treatment with Dupixent. Please contact his insurance with this information. Naun Nuñez MD Patient notified that new lab work needed due to Dupixent denial. Patient states he will obtain lab work on 08/15/22. I got a message that this was denied as patient needs to have an updated eosinphil count completed with an AEC of over 150 (last test was completed over 6 weeks ago) Please instruct patient to go to the lab to have a repeat CBC completed as ordered. Naun Nuñez MD The following approved medication requests have been transmitted electronically. Requested Prescriptions Signed Prescriptions Disp Refills dupilumab (DUPIXENT PEN) 300 mg/2 mL pen 4 mL 11 Sig: Inject 600 mg subcutaneously once as a loading dose, then 300 mg every 2 weeks for maintenance dose. Authorizing Provider: NAUN NUÑEZ MD Called [facility] and was told to call [facility] [phone] [place] dept for specialty medications. Spoke to Brent. Transferred to pharmacy PA department. Transferred again. Spoke to Samra. Answered clinical questions. Faxed clinicals (RADHA, eosinphil counts, suellen/ally) to [phone]. Case Ref # [id number] Pending review. Initiated PA for 600 mg loading dose AND 300 mg maintenance dose. Dupixent 600 mg once as a loading dose and then 300 mg every 2 weeks. Please send script to [facility]. Called [facility] [phone] to initiate PA. J code: J3590 ICD-10: J45.50 Per industrial relations representative, [facility] PA dept system is down-told to call back in 1 hour. For dosing, recommend Dupixent 600 mg once as a loading dose and then 300 mg every 2 weeks. Naun Nuñez MD Forms faxed to [facility] [address]. Forms completed for Dupixent start- on desk for signature. documented in this encounter [facility] 08-27-2022 Note . MICRO - Microbiology PROCEDURE: Fungal Culture Hair, Skin, Nail Only [*1] SOURCE: Skin BODY SITE: COLLECTED DATE/TIME: 07/26/2022 13:31 EDT RECEIVED DATE/TIME: 07/26/2022 18:45 EDT START DATE/TIME: 07/26/2022 18:46 EDT FREE TEXT SOURCE: FINAL REPORTS Final Report [] Verified Date/Time/Personnel: 08/27/2022 08:19 EDT No fungus isolated in 4 weeks. PRELIMINARY REPORTS Preliminary Report [] Verified Date/Time/Personnel: 07/29/2022 12:36 EDT No fungus isolated to date. Final report to follow. STAINS FUNSM [] Verified Date/Time/Personnel: 07/29/2022 14:39 EDT No fungal elements observed by calcofluor white stain. Performing Locations *1: This test was performed at: [address], [facility] , [facility] ([place]) 08-27-2022 Miscellaneous Notes Patient has been identified by name and date of : Yes Requested Prescriptions Pending Prescriptions Disp Refills cetirizine (ZYRTEC) 10 mg tablet [Pharmacy Med Name: CETIRIZINE HCL 10 MG TABLET] 90 tablet 0 Sig: TAKE 1 TABLET BY MOUTH EVERY DAY RX INSTRUCTIONS: Patient aware RX will be sent to pharmacy. No need to notify patient. Juaquin Ordoñez MA RADHA: 05/31/2022 Future OV: 12/30/2022 documented in this encounter [facility] 08-06-2022 Note HNO ID: [id number] Author: Naun Nuñez MD Service: ? Author Type: Physician Type: Progress Notes Filed: 08/08/2022 8:35 AM Note Text: Donnell Adams is a 46 year old male with a history of allergic rhinoconjunctivitis (cats, cockroaches, dust mites, trees, grasses, weeds, ragweed), severe persistent asthma, possible COPD and morbid obesity who presents for a follow-up visit. His last visit was 04/02/22. Ramakrishna was denied by his insurance at that time. Pulmonary subsequently tried to get Fasenra approved but this was also denied by insurance. He continues to c/o cough, wheezing, chest tightness and shortness of breath with minimal exertion. Using albuterol HFA inhaler or DuoNeb aerosols a few times per week for acute symptoms. Awakening 2-3 nights per week respiratory symptoms. On June 07, a prednisone taper and then a daily dose of prednisone 10 mg was prescribed by pulmonary medicine, however, the patient does not believe he is taking the prednisone currently. No emergency room visits or hospitalizations for asthma since his last visit. He denies significant nasal symptoms. He discontinued use of fluticasone nasal spray as this was causing some nasal irritation. Complains of nightmares associated with prior use of Claritin, Zyrtec and Iram. He temporarily increased his smoking to 1 pack/day. Reports he has decreased back to 1/2 pack/day. He attempted a home sleep study twice. The first study had insufficient data. For the second sleep study, he was unable to tolerate wearing the equipment. There are no cats in the home. Dust mite precautions are not in place in the home. (From initial visit on 09/13/21 This is a self-referral for an allergy and immunology evaluation. Donnell Adams is a 46 year old male who presents for further evaluation of asthma. He has a history of asthma since childhood. He also has been smoking cigarettes since he was 15 years old. Up until recently he was smoking 2 packs/day. More recently he has cut back to 1/2 pack/day. He is taking Chantix. Respiratory symptoms include coughing, wheezing, chest tightness and shortness of breath. He was using albuterol 2-3 times per day for acute symptoms. Recently, his primary care provider prescribed Symbicort 160-4.52 puffs twice daily and DuoNeb 4 times daily. 1 month ago, he developed difficulty breathing while at work. He was transported by EMS to the emergency room. Wheezing was noted on physical exam. He was treated with albuterol and ipratropium nebulized and prednisone. Denies additional treatment with systemic corticosteroids or emergency room visits for respiratory symptoms in the past year. No prior hospitalizations for respiratory symptoms. Symptoms are worse at work. 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 Additional triggers include physical activity, upper respiratory infection and hot environments. He denies significant nasal and ocular symptoms outside of acute infections. Denies a history of nasal trauma or nasal polyposis. No prior imaging of the sinuses. He was on subcutaneous allergy immunotherapy for several years as a child with improvement in his symptoms. Denies systemic reactions to immunotherapy. Denies use of allergy medications including antihistamines and nasal sprays. History of adverse reaction to penicillin as a child. He does not know any details regarding the reaction. He believes he has subsequently taken amoxicillin and tolerated this without adverse reaction. He denies snoring. He complains of daytime fatigue. Denies significant GERD symptoms.) REVIEW OF SYSTEMS: Complains of of a 2-month history of rash on his back. Per patient, a topical medication was prescribed by his PCP but is out of stock at his pharmacy and he will be returning to his primary care physician's office for a biopsy. All other review of systems negative except for those listed above. PAST MEDICAL HISTORY Diagnosis Date Asthma COPD (chronic obstructive pulmonary disease) (HCC) Epilepsy (HCC) not on medications Morbid obesity (HCC) Tobacco use Partial nephrectomy for renal mass MEDICATIONS: predniSONE (DELTASONE) 10 mg tablet Take 1 tablet by mouth once daily. cetirizine (ZYRTEC) 10 mg tablet Take 1 tablet by mouth once daily. budesonide (PULMICORT) 1 mg/2 mL nebulizer solution Use 2 mL via nebulizer twice daily. benralizumab (FASENRA PEN) 30 mg/mL Inject 30mg(1 pen) subcutaneously every 4 weeks for the first 3 doses, followed by 30mg (1 pen) every 8 weeks fluticasone (FLONASE) 50 mcg/actuation nasal spray Use 1-2 Sprays in each nostril once daily. montelukast (SINGULAIR) 10 mg tablet Take 1 tablet by mouth daily at bedtime. buPROPion XL (WELLBUTRIN XL) 150 mg 24 hr tablet Take 150 mg by mouth once daily. albuterol HFA (PROVENTIL HFA, VENTOLIN HFA) 90 mcg/actuation inhaler Inhale 2 Puffs as instr (more content not included)... [facility] 08-06-2022 Note HNO ID: [id number] Author: Shay Garcia RRT Service: ? Author Type: Registered Resp Therapist Type: Progress Notes Filed: 08/06/2022 8:50 AM Note Text: PULM FUNCTION SMARTBLOCK: Provider: Naun Nuñez MD Assisting Tech: Shay Garcia RRT Spirometry w/BD: 1 [facility] 08-06-2022 Instructions Naun Nuñez MD - 08/06/2022 9:33 AM EDT Use triamcinolone nasal spray (nasacort) or fluticasone nasal spray (generic flonase) 1-2 sprays to each nostril once a day on a regular basis Contact your pharmacy about the cream that was prescribed for your back. documented in this encounter [facility] 08-06-2022 History of Present illness Narrative Donnell Adams is a 46 year old male with a history of allergic rhinoconjunctivitis (cats, cockroaches, dust mites, trees, grasses, weeds, ragweed), severe persistent asthma, possible COPD and morbid obesity who presents for a follow-up visit. His last visit was 04/02/22. Nucala was denied by his insurance at that time. Pulmonary subsequently tried to get Fasenra approved but this was also denied by insurance. He continues to c/o cough, wheezing, chest tightness and shortness of breath with minimal exertion. Using albuterol HFA inhaler or DuoNeb aerosols a few times per week for acute symptoms. Awakening 2-3 nights per week respiratory symptoms. On June 07, a prednisone taper and then a daily dose of prednisone 10 mg was prescribed by pulmonary medicine, however, the patient does not believe he is taking the prednisone currently. No emergency room visits or hospitalizations for asthma since his last visit. He denies significant nasal symptoms. He discontinued use of fluticasone nasal spray as this was causing some nasal irritation. Complains of nightmares associated with prior use of Claritin, Zyrtec and Iram. He temporarily increased his smoking to 1 pack/day. Reports he has decreased back to 1/2 pack/day. He attempted a home sleep study twice. The first study had insufficient data. For the second sleep study, he was unable to tolerate wearing the equipment. There are no cats in the home. Dust mite precautions are not in place in the home. (From initial visit on 09/13/21 This is a self-referral for an allergy and immunology evaluation. Donnell Adams is a 46 year old male who presents for further evaluation of asthma. He has a history of asthma since childhood. He also has been smoking cigarettes since he was 15 years old. Up until recently he was smoking 2 packs/day. More recently he has cut back to 1/2 pack/day. He is taking Chantix. Respiratory symptoms include coughing, wheezing, chest tightness and shortness of breath. He was using albuterol 2-3 times per day for acute symptoms. Recently, his primary care provider prescribed Symbicort 160-4.52 puffs twice daily and DuoNeb 4 times daily. 1 month ago, he developed difficulty breathing while at work. He was transported by EMS to the emergency room. Wheezing was noted on physical exam. He was treated with albuterol and ipratropium nebulized and prednisone. Denies additional treatment with systemic corticosteroids or emergency room visits for respiratory symptoms in the past year. No prior hospitalizations for respiratory symptoms. Symptoms are worse at work. 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 Additional triggers include physical activity, upper respiratory infection and hot environments. He denies significant nasal and ocular symptoms outside of acute infections. Denies a history of nasal trauma or nasal polyposis. No prior imaging of the sinuses. He was on subcutaneous allergy immunotherapy for several years as a child with improvement in his symptoms. Denies systemic reactions to immunotherapy. Denies use of allergy medications including antihistamines and nasal sprays. History of adverse reaction to penicillin as a child. He does not know any details regarding the reaction. He believes he has subsequently taken amoxicillin and tolerated this without adverse reaction. He denies snoring. He complains of daytime fatigue. Denies significant GERD symptoms.) REVIEW OF SYSTEMS: Complains of of a 2-month history of rash on his back. Per patient, a topical medication was prescribed by his PCP but is out of stock at his pharmacy and he will be returning to his primary care physician's office for a biopsy. All other review of systems negative except for those listed above. PAST MEDICAL HISTORY Diagnosis Date Asthma COPD (chronic obstructive pulmonary disease) (HCC) Epilepsy (HCC) not on medications Morbid obesity (HCC) Tobacco use Partial nephrectomy for renal mass MEDICATIONS: predniSONE (DELTASONE) 10 mg tablet Take 1 tablet by mouth once daily. cetirizine (ZYRTEC) 10 mg tablet Take 1 tablet by mouth once daily. budesonide (PULMICORT) 1 mg/2 mL nebulizer solution Use 2 mL via nebulizer twice daily. benralizumab (FASENRA PEN) 30 mg/mL Inject 30mg(1 pen) subcutaneously every 4 weeks for the first 3 doses, followed by 30mg (1 pen) every 8 weeks fluticasone (FLONASE) 50 mcg/actuation nasal spray Use 1-2 Sprays in each nostril once daily. montelukast (SINGULAIR) 10 mg tablet Take 1 tablet by mouth daily at bedtime. buPROPion XL (WELLBUTRIN XL) 150 mg 24 hr tablet Take 150 mg by mouth once daily. albuterol HFA (PROVENTIL HFA, VENTOLIN HFA) 90 mcg/actuation inhaler Inhale 2 Puffs as instructed every 4 hours as needed for wheezing/shortness of breath. gouekqmvhix-omzhevrng-qojzeoat (TRELEGY ELLIPTA) 200-62.5-25 mcg inhalation powder Inhale 1 Puff as instructed once daily. Rinse mouth out after use. ipratropium-albuterol (DUONEB) 0.5 mg-3 mg(2.5 mg base)/3 mL nebu 3 mL every 4 hours while awake. ALLERGIES: Allergies As of Date: 08/06/2022 Allergen Noted Reaction PENICILLINS 10/16/2011 Unknown Fully Assessed 06/11/2022 PAST SURGICAL HISTORY Procedure Laterality Date NEPHRECTOMY PARTIAL Right 01/29/2016 stage 1-per patient, took oral medication. ORTHOPEDICS SURGERY HX right shoulder PAST SURGICAL HISTORY OF 2019 removed mass left testicle-benign FAMILY HISTORY: Allergic rhinitis:no. Asthma: no. Eczema: no. Cystic fibrosis: no. Immunodeficiency: no. SOCIAL HISTORY: Employer And Job Title: None on file Years Of Education Completed: Not specified Marital Status: Single Social History Tobacco Use Smoking status: Every Day Packs/day: 0.50 Years: 25.00 Pack years: 12.5 Types: Cigarettes Smokeless tobacco: Never Tobacco comments: Was smoking 2 ppd, now smoking 0.50 ppd. ENVIRONMENTAL HISTORY: Lives in a apartment Age of home: unknown years Heating: gas Woodburning fireplace in the home: no Air conditioning: Central air Basement: No basement Paul: Hanh-vd-hwwt carpeting Dust mite controls: Dust mite controls are not in place. Pets in the home: 1 dogs Outdoor animals: There are no outdoor animals Tobacco smoke: Exposure in the home. Physical Exam: GENERAL APPEARANCE:Well appearing, alert, in no acute distress, well-hydrated, well nourished. Obese HEENT: NCAT. EYES: conjunctiva and sclera normal. EARS: External ears normal. Canals clear. TM's normal. NOSE/SINUS: Moderate edema of the nasal mucosa with scant clear secretions bilaterally THROAT: no erythema NECK:neck supple, no adenopathy HEART:RRR with normal S1 and S2 ,no murmurs, no gallops, no rubs LUNGS: Diminished breath sounds in the bases bilaterally, no wheezing, rales or rhonchi EXTREMITIES:Extremities normal, No deformities, No skin discoloration and No edema SKIN: Scattered erythematous plaques on the back, a couple with darkened centers. Spirometry pre and postbronchodilator on August 06, 2022: Moderately severe obstruction without a significant bronchodilator response. FEV1 56% predicted prebronchodilator Spirometry pre and postbronchodilator on January 28, 2022: Moderate obstruction with a significant bronchodilator response. FEV1 52% predicted prebronchodilator. Pulmonary function test on October 24, 2021: Moderate obstruction without a significant bronchodilator response. TLC and DLCO within normal limits. Residual volume and residual volume/TLC elevated consistent with air trapping. FEV1 61% prebronchodilator. Absolute eosinophil count on October 17, 2021: 480 ALLERGY SKIN TESTS:Deferred at initial visit due to patient preference/cost concerns. ASSESSMENT/PLAN: 1.) Severe persistent eosinophilic asthma, possible COPD: Given his symptoms are not adequately controlled by a combination of high dose ICS, LABA, LAMA and antileukotriene, recommended the patient begin treatment with Dupixent. The risks, including injection site pain and swelling, severe allergic reaction, eosinophilia and potentially increased difficulty fighting helminthic infections, benefits, alternatives and personnel for treatment with Dupixent were discussed with the patient. The patient consents to proceed. Written consent will be obtained when he presents for his first injection. If approved by insurance, patient will begin treatment with Dupixent 600 mg as a loading dose and then 300 mg every 2 weeks. Continue Trelegy Ellipta 200-62.5-25 one inhalation once daily. Rinse mouth out after use. Continue budesonide 1 mg nebulized twice daily. Continue Singulair 10 mg at bedtime Continue albuterol HFA inhaler with spacer 2 puffs or DuoNeb every 4-6 hours as needed. Continue to follow-up with pulmonary medicine 2.) Allergic rhinoconjunctivitis (cats, dust mites, trees, grasses, weeds, ragweed): Aggressive environmental controls. There are no cats in the home. Dust mite precautions should be instituted in the home. Environmental control measures for pollens were also discussed. Start Nasacort or retry fluticasone nasal spray 1 to 2 sprays to each nostril once daily Patient has been intolerant to antihistamines. 3.)Tobacco use disorder: Smoking cessation was strongly recommended. [4.) Morbid obesity and daytime fatigue: Patient was unable to complete HSAT 5.) History of penicillin allergy: Although patient reports he may have subsequently taken amoxicillin and tolerated this without adverse reaction, we were unable to verify this with the patient's pharmacy. Allergy skin tests may be completed to penicillin and Pre-Pen at a future visit.] 6.) Discussed medication dosage, usage, side effects, and goals of treatment in detail. 6.) Follow-up 3 months after beginning treatment with Dupixent with spirometry, and FeNO - patient will return sooner should new symptoms or problems arise. Plan to obtain a CBC with differential and platelets 1 to 2 months after beginning treatment with Dupixent. Naun Nuñez MD documented in this encounter [facility] 08-06-2022 History of Present illness Narrative PULM FUNCTION SMARTBLOCK: Provider: Naun Nuñez MD Assisting Tech: Shay Garcia RRT Spirometry w/BD: 1 documented in this encounter [facility] 06-12-2022 Miscellaneous Notes Pt notified and verbalized understanding. Images from the original note were not included. Left pt VM to call office back for below: Nuno Dodd MD P [facility] Dr Dodd Clinical [place] Please inform him that his echo is normal. documented in this encounter [facility] 06-11-2022 Note HNO ID: [id number] Author: Brooke Valdivia RN Service: ? Author Type: Registered Nurse Type: Progress Notes Filed: 06/11/2022 9:18 AM Note Text: A #24 IV was placed in the patient's right AC on the first attempt for IV Definity administration. Patient tolerated IV Definity well without complaint. IV was removed at the completion of today's echocardiogram without any difficulty. [facility] [facility] History of Present illness Narrative A #24 IV was placed in the patient's right AC on the first attempt for IV Definity administration. Patient tolerated IV Definity well without complaint. IV was removed at the completion of today's echocardiogram without any difficulty. documented in this encounter [facility] 06-07-2022 Miscellaneous Notes Mr. Adams has been denied nucala and fasenra, though he is very uncontrolled on currently maximal inhaler therapy. I will repeat all of his allergy bloodwork now, and then start him on chronic prednisone at 10 mg daily. We will then attempt to authorize him for biologic therapy again. I have called and updated Mr. Adams. At this time, he continues to be short of breath with some chest discomfort. documented in this encounter [facility] 06-03-2022 Note HNO ID: [id number] Author: Ventura Atkinson RPh Service: ? Author Type: Pharmacist Type: Progress Notes Filed: 06/07/2022 8:03 AM Note Text: Prior authorization for Fasenra was denied with details listed below. Plan Name: [employer] Plan Agent: CMM PA Bourne: [id number] Denial reason: Full denial letter has been scanned in [employer]. There is an option for written appeal or for [id number] review. If you would like to appeal, please provide a signed letter to [facility] Special[facility] and we can forward off to the patients insurance plan. If you would prefer to complete a [id number], one can be scheduled by calling the plan number above. Ventura Atkinson PharmD, [facility] Clinical Pharmacist, Biologics, Neurology, and Hepatology [facility] ; Pool: P [facility] Pool #: [id number] [facility] 06-03-2022 Note HNO ID: [id number] Author: Cintia Vieira Service: ? Author Type: ? Type: Progress Notes Filed: 06/04/2022 4:03 PM Note Text: Prior authorization for Fasenra was initiated and is pending review. Plan Name: [employer] Plan Agent: CMM PA Bourne: [id number] Timeline: Standard Cintia Vieira CPhT [facility] Specialty Pharmacy, Inflammatory P: [phone] F: [phone] [facility] 06-03-2022 Note HNO ID: [id number] Author: Cintia Vieira Service: ? Author Type: ? Type: Progress Notes Filed: 06/03/2022 1:03 PM Note Text: [facility] received prescription(s) for Fasenra from Dr. Dodd. Benefits investigation was conducted, indicating that a prior authorization is required by patients plan with [employer]. Encounter will be updated once prior authorization has been submitted by [facility]. Cintia Vieira [facility], Inflammatory P: [phone] F: [phone] [facility] 06-03-2022 History of Present illness Narrative [facility] received prescription(s) for Fasenra from Dr. Dodd. Benefits investigation was conducted, indicating that a prior authorization is required by patients plan with [employer]. Encounter will be updated once prior authorization has been submitted by [facility]. [facility] P: [phone] F: [phone] documented in this encounter [facility] 06-03-2022 Miscellaneous Notes Smoking Cessation Navigation Outcome of contact: Left Message Comments: A voicemail has been left for this patient regarding Tobacco Cessation support options. If this patient has any further questions they can email us at [email or web address] or call us at [phone]. [employer] Technician/Smoking Cessation Navigator: [facility] Electronically signed by [facility] at 06/03/2022 10:18 AM EST documented in this encounter [facility] 05-31-2022 Note HNO ID: [id number] Author: Nuno Dodd MD Service: ? Author Type: Physician Type: Progress Notes Filed: 05/31/2022 6:14 PM Note Text: ESTABLISHED PATIENT FOLLOW-UP SERVICE DATE: 05/31/2022 PRIMARY CARE PHYSICIAN: Otoniel Golden NP, LOCATION ANALYST.PHARMACY INTERN ASSESSMENT AND PLAN: Asthma- COPD overlap syndrome, in acute exacerbation. Patient has a heavy smoking history and is currently smoking. He additionally has a strong history of allergies. Spirometry demonstrated obstruction with BD change. Eosinophil count is 0.48. Has had 3 bursts of steroid in the last 4 months. By 6mwt, the patient's ability to walk is extremely reduced C/w trelegy ellipta Albuterol PRN Singulair Prednisone for exacerbation Will try fasenra as nucala was rejected by insurance Active smoker - Ramosx does not work. Still smoking 20 cigarettes a day. I strongly encouraged him to stop smoking as it's likely contributing to his dyspnea/ Smoking cessation counseling clinic Allergies- He cannot afford a skin test at this time. IgE and RAST are both very positive. BMI 48.81- Monitor BMI as it can contribute to dyspnea SUBJECTIVE CHIEF COMPLAINT: asthma HPI:Donnell Adams is a 46 year old male here for follow appointment for Asthma. Since the prior visit: He has a rash. IgE is 393. RAST testing is very positive. 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 He is still not feeling well. He uses duoneb twice a week which does help him feel better. He does spit up a malhotra-white phlegm when he coughs. He wheezes when he coughs. ASTHMA CONTROL TEST Date: 05/31/2022 In the last 4 weeks, how much of the time did your asthma keep you from getting as much done at work or home that you wanted to do? A little of the time (4) In the last 4 weeks, how often have you had shortness of breath? Once or twice per week (4) In the last 4 weeks, how often did your asthma symptoms (wheezing, coughing, shortness of breath, chest tightness or pain) wake you up at night or earlier than usual? 2 or 3 nights per week (2) In the last 4 weeks, how often have you used your rescue inhaler or nebulizer medication (such as Albuterol, Proventil, Ventolin, Maxair, Xoponex, or Primatene Mist)? 1 or 2 times per day (2) In the last 4 weeks, how would you rate your asthma control? Poorly controlled (2) Total: less than 15 SOCIAL HISTORY: Social History Tobacco Use Smoking status: Every Day Packs/day: 0.50 Years: 25.00 Pack years: 12.50 Types: Cigarettes Smokeless tobacco: Never Tobacco comments: Was smoking 2 ppd, now smoking 0.50 ppd. Substance Use Topics Alcohol use: No Comment: occasionally Drug use: No MEDICATIONS: Prior to Admission Medications (Not in a hospital admission) CURRENT ALLERGIES: ALLERGIES Allergen Reactions Penicillins Unknown COMPLETE REVIEW OF SYSTEMS: All other reviewed and negative other than HPI. OBJECTIVE PHYSICAL EXAM: BP 135/82 Pulse 73 Wt 374 lb (169.6kg) SpO2 98% General appearance: well appearing, alert, and in no acute distress Nose/Sinuses: Nares normal, septum midline, mucosa normal, no drainage or sinus tenderness Oropharynx: Lips, mucosa and tongue normal, teeth and gums normal, oropharynx normal. Respiratory: lungs clear to auscultation no wheezing or rhonchi Cardiovascular: Negative. RRR without murmur, gallop, or rubs. No ectopy DATA: Diagnostic tests reviewed for today's visit, films/specimens were personally reviewed by me: Most recent labs and imaging results. SIGNATURE: Nuno Dodd MD PATIENT NAME: Donnell Adams DATE: May 31, 2022 TIME: 1:17 PM PAGER/CONTACT #: [phone] [facility] 05-31-2022 Note HNO ID: [id number] Author: Jessenia Chavez RRT Service: ? Author Type: Registered Resp Therapist Type: Progress Notes Filed: 05/31/2022 1:05 PM Note Text: PULM FUNCTION SMARTBLOCK: Provider: Nuno Dodd MD 6 MW: 1 [facility] 05-31-2022 Note HNO ID: [id number] Author: Jessenia Chavez RRT Service: ? Author Type: Registered Resp Therapist Type: Procedures Filed: 05/31/2022 5:28 PM Note Text: RESPIRATORY THERAPY SIX MINUTE WALK TEST OXIMETRY REPORT Six Minute Walk Test for This Encounter Oxygen Device Liters FIO2 SpO2% HR Activity Feet Speed (MPH) Flag R/A 100 72 Resting R/A 99 99 Six Minute Walk 570 1.1 R/A 99 90 Recovery 1 minute post R/A 100 87 Recovery 2 minute post R/A 100 78 Recovery 3 minute post General Information Height Weight Smoking Status Pulse Oximetry Site Oximeter Pre Blood Pressure Post Blood Pressure Total Time Spent (min) 186.4 cm (6' 1.4 ) 169.6 kg (374 lb) Current Smoker Forehead Masimo 142/84 128/77 30 _ Distance Walked (meters) Distance Walked (feet) Male Predicted Walk Distance (feet) Male Lower Limit of Normal (feet) Male % Predicted Total Duration Of The Stops (seconds) 173.74 570 1862.86 1360.86 30.6 11 _ Lowest SpO2 During 6 Minute Walk Pre-Theron Dyspnea Rating Pre-Theron Fatigue Rating Post Theron Dyspnea Rating Post Theron Fatigue Rating O2 Supply Carrier Walking Assistance/Device 98 % 1 6 3 8 -- None Six Minute Walk Trend (Previous Encounters) None SIGNATURE: Jessenia Chavez RRT PATIENT NAME: Donnell Adams DATE: May 31, 2022 TIME: 1:04 PM _ Comments: Patient c/o leg pain during walk. The patient completed the six minute walk test with 1 stop. Total Duration Of The Stops (seconds): 11. The patient required Room Air to complete the test. The distance the patient walked in six minutes is extremely reduced. This is the first time patient takes the six minute walk test. The patient perceived their dyspnea during the six minute walk test to be 3-Moderate on the modified Theron scale. The patient perceived their fatigue during the six minute walk test to be 8 - on the modified Theron scale. I have reviewed the findings and made appropriate revisions as needed. SIGNATURE: Ani Marie MD PATIENT NAME: Donnell Adams DATE: May 31, 2022 TIME: 5:28 PM [facility] 05-31-2022 Instructions Nuno Dodd MD - 05/31/2022 1:32 PM EST Please do the following: Continue trelegy 1 inhalation daily. Take singulair AND zyrtec (cetirizine-- Che[employer]'s)- daily Take prednisone taper. New medication: Pulmicort in nebulizer in morning and night. Schedule the following --> New consult: smoking cessation clinic Echo I will see if we can get you fasenra biologic shot. Nuno Dodd MD With questions or concerns, please call the following: [facility] documented in this encounter [facility] 05-31-2022 History of Present illness Narrative ESTABLISHED PATIENT FOLLOW-UP SERVICE DATE: 05/31/2022 PRIMARY CARE PHYSICIAN: Otoniel Golden, RAMÓN, LOCATION ANALYST.PHARMACY INTERN ASSESSMENT AND PLAN: Asthma- COPD overlap syndrome, in acute exacerbation. Patient has a heavy smoking history and is currently smoking. He additionally has a strong history of allergies. Spirometry demonstrated obstruction with BD change. Eosinophil count is 0.48. Has had 3 bursts of steroid in the last 4 months. By 6mwt, the patient's ability to walk is extremely reduced C/w trelegy ellipta Albuterol PRN Singulair Prednisone for exacerbation Will try fasenra as nucala was rejected by insurance Active smoker - Chantix does not work. Still smoking 20 cigarettes a day. I strongly encouraged him to stop smoking as it's likely contributing to his dyspnea/ Smoking cessation counseling clinic Allergies- He cannot afford a skin test at this time. IgE and RAST are both very positive. BMI 48.81- Monitor BMI as it can contribute to dyspnea SUBJECTIVE CHIEF COMPLAINT: asthma HPI:Donnell Adams is a 46 year old male here for follow appointment for Asthma. Since the prior visit: He has a rash. IgE is 393. RAST testing is very positive. 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 He is still not feeling well. He uses duoneb twice a week which does help him feel better. He does spit up a malhotra-white phlegm when he coughs. He wheezes when he coughs. ASTHMA CONTROL TEST Date: 05/31/2022 In the last 4 weeks, how much of the time did your asthma keep you from getting as much done at work or home that you wanted to do? A little of the time (4) In the last 4 weeks, how often have you had shortness of breath? Once or twice per week (4) In the last 4 weeks, how often did your asthma symptoms (wheezing, coughing, shortness of breath, chest tightness or pain) wake you up at night or earlier than usual? 2 or 3 nights per week (2) In the last 4 weeks, how often have you used your rescue inhaler or nebulizer medication (such as Albuterol, Proventil, Ventolin, Maxair, Xoponex, or Primatene Mist)? 1 or 2 times per day (2) In the last 4 weeks, how would you rate your asthma control? Poorly controlled (2) Total: less than 15 SOCIAL HISTORY: Social History Tobacco Use Smoking status: Every Day Packs/day: 0.50 Years: 25.00 Pack years: 12.50 Types: Cigarettes Smokeless tobacco: Never Tobacco comments: Was smoking 2 ppd, now smoking 0.50 ppd. Substance Use Topics Alcohol use: No Comment: occasionally Drug use: No MEDICATIONS: Prior to Admission Medications (Not in a hospital admission) CURRENT ALLERGIES: ALLERGIES Allergen Reactions Penicillins Unknown COMPLETE REVIEW OF SYSTEMS: All other reviewed and negative other than HPI. OBJECTIVE PHYSICAL EXAM: BP 135/82 Pulse 73 Wt 374 lb (169.6kg) SpO2 98% General appearance: well appearing, alert, and in no acute distress Nose/Sinuses: Nares normal, septum midline, mucosa normal, no drainage or sinus tenderness Oropharynx: Lips, mucosa and tongue normal, teeth and gums normal, oropharynx normal. Respiratory: lungs clear to auscultation no wheezing or rhonchi Cardiovascular: Negative. RRR without murmur, gallop, or rubs. No ectopy DATA: Diagnostic tests reviewed for today's visit, films/specimens were personally reviewed by me: Most recent labs and imaging results. SIGNATURE: Nuno Dodd MD PATIENT NAME: Donnell Adams DATE: May 31, 2022 TIME: 1:17 PM PAGER/CONTACT #: [phone] documented in this encounter [facility] 05-31-2022 History of Present illness Narrative PULM FUNCTION SMARTBLOCK: Provider: Nuno Dodd MD 6 MW: 1 documented in this encounter [facility] 05-31-2022 Procedure note Associated Ord er(s): SIX MINUTE WALK Images from the original note were not included. RESPIRATORY THERAPY SIX MINUTE WALK TEST OXIMETRY REPORT Six Minute Walk Test for This Encounter Oxygen Device Liters FIO2 SpO2% HR Activity Feet Speed (MPH) Flag R/A 100 72 Resting R/A 99 99 Six Minute Walk 570 1.1 R/A 99 90 Recovery 1 minute post R/A 100 87 Recovery 2 minute post R/A 100 78 Recovery 3 minute post General Information Height Weight Smoking Status Pulse Oximetry Site Oximeter Pre Blood Pressure Post Blood Pressure Total Time Spent (min) 186.4 cm (6' 1.4 ) 169.6 kg (374 lb) Current Smoker Forehead Farhano 142/84 128/77 30 _ Distance Walked (meters) Distance Walked (feet) Male Predicted Walk Distance (feet) Male Lower Limit of Normal (feet) Male % Predicted Total Duration Of The Stops (seconds) 173.74 570 1862.86 1360.86 30.6 11 _ Lowest SpO2 During 6 Minute Walk Pre-Theron Dyspnea Rating Pre-Theron Fatigue Rating Post Theron Dyspnea Rating Post Theron Fatigue Rating O2 Supply Carrier Walking Assistance/Device 98 % 1 6 3 8 -- None Six Minute Walk Trend (Previous Encounters) None SIGNATURE: Jessenia Chavez RRT PATIENT NAME: Donnell Adams DATE: May 31, 2022 TIME: 1:04 PM _ Comments: Patient c/o leg pain during walk. The patient completed the six minute walk test with 1 stop. Total Duration Of The Stops (seconds): 11. The patient required Room Air to complete the test. The distance the patient walked in six minutes is extremely reduced. This is the first time patient takes the six minute walk test. The patient perceived their dyspnea during the six minute walk test to be 3-Moderate on the modified Theron scale. The patient perceived their fatigue during the six minute walk test to be 8 - on the modified Theron scale. I have reviewed the findings and made appropriate revisions as needed. SIGNATURE: Ani Marie MD PATIENT NAME: Donnell Adams DATE: May 31, 2022 TIME: 5:28 PM documented in this encounter [facility] 04-08-2022 Miscellaneous Notes Left voicemail to call office. Please let patient know that Nucala was denied. 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 Recommend that he follow-up with pulmonary medicine as scheduled. I would like to see him for a follow-up visit in 4 months with spirometry. Naun Nuñez MD PA denied. States does not meet criteria. Covered only if meets below 2 criteria Asthma is eosinophilic type, 1560 cells/uL or greater in last 6 weeks Currently dependent on maintenance therapy with oral corticosteroids Please advise. Patient approved for co pay program- notified via fax. Received benefits investigation. Placed in pending meds file. Waiting on PA determination. Forms faxed to [place] to [facility]. PA initiated on covermymeds. Bourne [id number] [place] to [facility] enrollment form completed-on physician's desk for signature. documented in this encounter [facility] 04-02-2022 Instructions Naun Nuñez MD - 04/02/2022 11:41 AM EST Use fluticasone nasal spray (generic flonase) 1-2 sprays to each nostril once a day on a regular basis Take prednisone 40 mg once a day for 5 days if needed for asthma exacerbation. documented in this encounter [facility] 04-02-2022 Nurse Note Patient had 2 attacks last week-used albuterol 3-4 times. He was coughing and had sob. He feels a little better on Trelegy. Has been taking Singulair. He saw pulmonary last month and completed chest XR and labs. documented in this encounter [facility] 04-02-2022 History of Present illness Narrative Donnell Adams is a 46 year old male with a history of severe persistent asthma, possible COPD and morbid obesity who presents for a follow-up visit. His last visit was 01/31/2022. Trelegy Ellipta 200-62.5-25 mcg, Singulair and a 5-day course of prednisone were prescribed at that time. He continues to note cough, wheezing, chest tightness and shortness of breath. Symptoms have worsened over the past week. On 2 occasions during the past week, he noted acute onset of shortness of breath, cough and wheezing. Describes shortness of breath at difficulty with inhalation. Symptoms resolved within a couple minutes. Awakening 2-3 nights per week due to respiratory symptoms. Using albuterol or DuoNeb a few times per week for acute symptoms. He has taken 2 courses of systemic corticosteroids for asthma exacerbations since his last visit. Denies ER visits or hospitalizations for respiratory symptoms since his last visit. Since his last visit, he was evaluated by pulmonary medicine. Zyrtec and a 5-day course of prednisone were prescribed. On laboratory evaluation, IgE was 393 and absolute eosinophil count was 420. Inhalants RAST panel was positive to dust mites, trees, grasses, weeds and ragweed. Negative to dogs and molds. He attempted a home sleep study twice. The first study had insufficient data. For the second sleep study, he was unable to tolerate wearing the equipment. He continues to smoke 1/2 pack/day. He has been taking Wellbutrin without relief. Denies significant nasal symptoms. Denies significant GERD symptoms. (From initial visit on 09/13/21 This is a self-referral for an allergy and immunology evaluation. Donnell Adams is a 46 year old male who presents for further evaluation of asthma. He has a history of asthma since childhood. He also has been smoking cigarettes since he was 15 years old. Up until recently he was smoking 2 packs/day. More recently he has cut back to 1/2 pack/day. He is taking Chantix. Respiratory symptoms include coughing, wheezing, chest tightness and shortness of breath. He was using albuterol 2-3 times per day for acute symptoms. Recently, his primary care provider prescribed Symbicort 160-4.52 puffs twice daily and DuoNeb 4 times daily. 1 month ago, he developed difficulty breathing while at work. He was transported by EMS to the emergency room. Wheezing was noted on physical exam. He was treated with albuterol and ipratropium nebulized and prednisone. Denies additional treatment with systemic corticosteroids or emergency room visits for respiratory symptoms in the past year. No prior hospitalizations for respiratory symptoms. Symptoms are worse at work. 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 Additional triggers include physical activity, upper respiratory infection and hot environments. He denies significant nasal and ocular symptoms outside of acute infections. Denies a history of nasal trauma or nasal polyposis. No prior imaging of the sinuses. He was on subcutaneous allergy immunotherapy for several years as a child with improvement in his symptoms. Denies systemic reactions to immunotherapy. Denies use of allergy medications including antihistamines and nasal sprays. History of adverse reaction to penicillin as a child. He does not know any details regarding the reaction. He believes he has subsequently taken amoxicillin and tolerated this without adverse reaction. He denies snoring. He complains of daytime fatigue. Denies significant GERD symptoms.) REVIEW OF SYSTEMS: Negative for fevers, chills, night sweats and unintentional weight loss. Significant for back pain following an injury at work All other review of systems negative except for those listed above. PAST MEDICAL HISTORY Diagnosis Date Asthma COPD (chronic obstructive pulmonary disease) ([facility]) Epilepsy ([facility]) not on medications Morbid obesity ([facility]) Tobacco use Partial nephrectomy for renal mass MEDICATIONS: montelukast (SINGULAIR) 10 mg tablet Take 1 tablet by mouth daily at bedtime. cetirizine (ZYRTEC) 10 mg tablet Take 1 tablet by mouth once daily. buPROPion XL (WELLBUTRIN XL) 150 mg 24 hr tablet Take 150 mg by mouth once daily. albuterol HFA (PROVENTIL HFA, VENTOLIN HFA) 90 mcg/actuation inhaler Inhale 2 Puffs as instructed every 4 hours as needed for wheezing/shortness of breath. kbucxmgxrax-kdrontgbh-rfziijyb (TRELEGY ELLIPTA) 200-62.5-25 mcg inhalation powder Inhale 1 Puff as instructed once daily. Rinse mouth out after use. ipratropium-albuterol (DUONEB) 0.5 mg-3 mg(2.5 mg base)/3 mL nebu 3 mL every 4 hours while awake. ALLERGIES: Allergies As of Date: 04/02/2022 Allergen Noted Reaction PENICILLINS 10/16/2011 Unknown Fully Assessed 02/27/2022 PAST SURGICAL HISTORY Procedure Laterality Date NEPHRECTOMY PARTIAL Right 01/29/2016 stage 1-per patient, took oral medication. ORTHOPEDICS SURGERY HX right shoulder PAST SURGICAL HISTORY OF 2019 removed mass left testicle-benign FAMILY HISTORY: Allergic rhinitis:no. Asthma: no. Eczema: no. Cystic fibrosis: no. Immunodeficiency: no. SOCIAL HISTORY: Employer And Job Title: None on file Years Of Education Completed: Not specified Marital Status: Single Social History Tobacco Use Smoking status: Every Day Packs/day: 0.50 Years: 25.00 Pack years: 12.5 Types: Cigarettes Smokeless tobacco: Never Tobacco comments: Was smoking 2 ppd, now smoking 0.50 ppd. ENVIRONMENTAL HISTORY: Lives in a apartment Age of home: unknown years Heating: gas Woodburning fireplace in the home: no Air conditioning: Central air Basement: No basement Paul: Ncyk-kd-dltl carpeting Dust mite controls: Dust mite controls are not in place. Pets in the home: 1 dogs Outdoor animals: There are no outdoor animals Tobacco smoke: Exposure in the home. Physical Exam: GENERAL APPEARANCE:Well appearing, alert, in no acute distress, well-hydrated, well nourished. Obese HEENT: NCAT. EYES: conjunctiva and sclera normal. EARS: External ears normal. Canals clear. TM's normal. NOSE/SINUS: mild edema of the nasal mucosa with scant clear secretions bilaterally THROAT: no erythema NECK:neck supple, no adenopathy HEART:RRR with normal S1 and S2 ,no murmurs, no gallops, no rubs LUNGS: Diminished breath sounds and faint expiratory wheezing throughout, no rales or rhonchi EXTREMITIES:Extremities normal, No deformities, No skin discoloration and No edema SKIN: Skin color, texture, turgor normal. No rashes or lesions. Spirometry pre and postbronchodilator on January 28, 2022: Moderate obstruction with a significant bronchodilator response. FEV1 52% predicted prebronchodilator. Pulmonary function test on October 24, 2021: Moderate obstruction without a significant bronchodilator response. TLC and DLCO within normal limits. Residual volume and residual volume/TLC elevated consistent with air trapping. FEV1 61% prebronchodilator. Absolute eosinophil count on October 17, 2021: 480 ALLERGY SKIN TESTS:Deferred at initial visit due to patient preference/cost concerns. ASSESSMENT/PLAN: 1.) Severe persistent eosinophilic asthma, possible COPD: Given his symptoms are not adequately controlled by a combination of high dose ICS, LABA, LAMA and antileukotriene, recommended the patient begin treatment with Nucala. The risks, including injection site pain and swelling, severe allergic reaction, increased risk of shingles and potentially increased difficulty fighting helminthic infections, benefits, alternatives and personnel for treatment with Nucala were discussed with the patient. The patient consents to proceed. Written consent will be obtained when he presents for his first injection. Continue Trelegy Ellipta 200-62.5-25 one inhalation once daily. Rinse mouth out after use. Continue Singulair 10 mg at bedtime Continue albuterol HFA inhaler with spacer 2 puffs or DuoNeb every 4-6 hours as needed. He should continue to receive an annual influenza vaccine. Continue to follow-up with pulmonary medicine 2.) Allergic rhinoconjunctivitis (cats, dust mites, trees, grasses, weeds, ragweed): Aggressive environmental controls. There are no cats in the home. Dust mite precautions should be instituted in the home. Environmental control measures for pollens were also discussed. Start fluticasone nasal spray 1 to 2 sprays to each nostril once daily for possible postnasal drip contributing to productive cough. Continue cetirizine/Zyrtec 10 mg once daily. 3.)Tobacco use disorder: Smoking cessation was strongly recommended. (4.) Morbid obesity and daytime fatigue: Patient was unable to complete HSAT 5.) History of penicillin allergy: Although patient reports he may have subsequently taken amoxicillin and tolerated this without adverse reaction, we were unable to verify this with the patient's pharmacy. Allergy skin tests may be completed to penicillin and Pre-Pen at a future visit.) 6.) Discussed medication dosage, usage, side effects, and goals of treatment in detail. 6.) Follow-up 3 months after beginning treatment with Nucala with spirometry, FeNO and repeat CBC with differential and platelets.- patient will return sooner should new symptoms or problems arise. Naun Nuñez MD documented in this encounter [facility] 02-27-2022 Instructions Nuno Dodd MD - 02/27/2022 10:59 AM EST For your COPD/Asthma, continue taking trelegy ellipta. Take albuterol inhaler as needed. Restart singulair. Start taking cetirizine which is over the counter. Take 10 mg of it daily (1 pill).You can get it at [employer] Take prednisone for 5 days. Try to cut done by 2 cigarettes by May. Schedule: labwork- to see allergy sensitivities. Lung function test --> this will help us see whether its COPD or asthma in 3 months Follow up in 3 months. Nuno Dodd MD With questions or concerns, please call the following: [facility] documented in this encounter [facility] 02-27-2022 History and physical note Images from the original note were not included. Pulmonary Consult Patient Name: Donnell Adams PRIMARY CARE PHYSICIAN: Otoniel Golden, RAMÓN, LOCATION ANALYST.PHARMACY INTERN REASON FOR CONSULT: Dyspnea REQUESTING PHYSICIAN: Naun Nuñez MD ASSESSMENT AND PLAN: I discussed the plan in detail with the patient. Assessment: Asthma- COPD overlap syndrome, in acute exacerbation. Patient has a heavy smoking history and is currently smoking. He additionally has a strong history of allergies. Spirometry demonstrated obstruction with BD change. Will repeat a spirometry to see whether or not this is a fixed obstruction, which will help assess whether there is a COPD component to his asthma. Eosinophil count is 0.48. C/w trelegy ellipta (has only been on it for 1 month) Albuterol PRN Restarted singulair Repeat spirometry after 3 months of trelegy Prednisone x 5 days Agree that he would be a good candidate for chantix Active smoker - Chantix does not work. Will attempt to cut down by 2 cigarettes by the next time that we meet Allergies- He cannot afford a skin test at this time. Will do bloodwork. He requests restarting the singulair. BMI 48.42- Monitor BMI as it can contribute to dyspnea Follow up in 3 months My final recommendations will be communicated to the requesting health care provider by way of the shared medical record for internal providers or letter via the [employer] for external providers. CHIEF COMPLAINT: Dyspnea HISTORY OF PRESENT ILLNESS: Donnell Adams is a 46 year old male with a history of asthma as a child. When he was at work, he had an asthma attack in July or August. He says that he had to go to the hospital. When he was discharged, he was told to follow up with me. He sees Dr. Naun Nuñez who started him on trelegy. He has been taking that almost a full month. He says that he does feel a difference on the trelegy. He does have cats and dogs at home. He does not think he has allergies to dogs. He used to smoke 1/2 ppd. Now, he smokes 1 full pack a day. He has smoked from the age of 14. He has tried chantix. However, the chantix gave him nightmares. He did take subcutaneous allergy immunotherapy which did seem to help. At home, he had a nebulizer and trelegy. When he takes the nebulizer, he does think that helps it. 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 He is exposed to dust/particulate matter there. He feels short of breath through the day. He feels short of breath mostly with walking. He says that he coughs all day, and he says that it is a dry cough. He does a white phlegm that comes up occasionally. He also thinks that his dyspnea is worsening over time. He also does hear himself wheezing at night. Family history: His dad and aunt both have COPD. He has no history of lung cancer. Grade Description of breathlessness 0 I only get breathless with strenuous exercise 1 I get short of breath when hurrying on level ground or walking up a slight hill 2 On level ground, I walk slower than people of the same age because of breathlessness, or have to stop for breath when walking at my own pace 3 I stop for breath after walking about 100 yards or after a few minutes on level ground 4 I am too breathless to leave the house or I am breathless when dressing ASTHMA CONTROL TEST Date: 02/27/2022 In the last 4 weeks, how much of the time did your asthma keep you from getting as much done at work or home that you wanted to do? Some of the time (3) In the last 4 weeks, how often have you had shortness of breath? More than once per day (1) In the last 4 weeks, how often did your asthma symptoms (wheezing, coughing, shortness of breath, chest tightness or pain) wake you up at night or earlier than usual? 4 or more nights per week (1) In the last 4 weeks, how often have you used your rescue inhaler or nebulizer medication (such as Albuterol, Proventil, Ventolin, Maxair, Xoponex, or Primatene Mist)? A few times per week (3) In the last 4 weeks, how would you rate your asthma control? Somewhat controlled (3) Total: less than 15 PAST MEDICAL HISTORY Diagnosis Date Asthma COPD (chronic obstructive pulmonary disease) (HCC) Epilepsy (HCC) not on medications Morbid obesity (HCC) Tobacco use PAST SURGICAL HISTORY Procedure Laterality Date NEPHRECTOMY PARTIAL Right 01/29/2016 stage 1-per patient, took oral medication. ORTHOPEDICS SURGERY HX right shoulder PAST SURGICAL HISTORY OF 2020 removed mass left testicle-benign FAMILY HISTORY Problem Relation Age of Onset Coronary Artery Disease Father Cancer Father Coronary Artery Disease Paternal Aunt Social History Tobacco Use Smoking status: Every Day Packs/day: 0.50 Years: 25.00 Pack years: 12.50 Types: Cigarettes Smokeless tobacco: Never Tobacco comments: Was smoking 2 ppd, now smoking 0.50 ppd. Substance Use Topics Alcohol use: No Comment: occasionally Drug use: No ALLERGIES: ALLERGIES Allergen Reactions Penicillins Unknown CURRENT OUTPATIENT MEDICATIONS: buPROPion XL (WELLBUTRIN XL) 150 mg 24 hr tablet Take 150 mg by mouth once daily. albuterol HFA (PROVENTIL HFA, VENTOLIN HFA) 90 mcg/actuation inhaler Inhale 2 Puffs as instructed every 4 hours as needed for wheezing/shortness of breath. twqaxoufiri-jwswexwrh-ybvkvioj (TRELEGY ELLIPTA) 200-62.5-25 mcg inhalation powder Inhale 1 Puff as instructed once daily. Rinse mouth out after use. montelukast (SINGULAIR) 10 mg tablet Take 1 tablet by mouth daily at bedtime. ipratropium-albuterol (DUONEB) 0.5 mg-3 mg(2.5 mg base)/3 mL nebu 3 mL every 4 hours while awake. REVIEW OF SYSTEMS: Complete ROS was done and any negative and positive results are note PHYSICAL EXAM: BP 135/85 Pulse 73 Resp 14 Wt 367 lb (166.5kg) SpO2 99% General appearance: Well appearing, alert, in no acute distress, well-hydrated, well nourished. Ears: External ears normal, canals clear, TM's normal Nose/Sinuses: Nares normal. Septum midline. Mucosa normal. No drainage or sinus tenderness. Oropharynx: Lips, mucosa, and tongue normal, teeth and gums normal, oropharynx normal Lungs: Lungs clear to auscultation. No wheezing, rhonchi, rales Heart: RRR without murmur, gallop, or rubs. No ectopy Extremities: Normal, Warm, No cyanosis, no clubbing, No edema, and Nontender DATA: Diagnostic tests reviewed for today's visit, films/specimens were personally reviewed by me: Most recent labs and imaging results. 02/27/22 - chest xray no acute abnormality 01/28/22 spirometry- FEV1/FVC 0.60 < 0.68 (LLN), FEV1 52%, +BD change Nuno Dodd MD February 27, 2022 documented in this encounter [facility] 01-31-2022 Instructions Naun Nuñez MD - 01/31/2022 9:09 AM EDT Start Trelegy ellipta one inhalation once a day. Use every day on a regular basis. Start montelukast (singulair) 10 mg one tablet at bedtime every night. Discontinue symbicort and spiriva Take prednisone 40 mg once a day for 5 days Use Duoneb four times a day as needed. documented in this encounter [facility] 01-31-2022 History of Present illness Narrative Donnell Adams is a 46 year old male with a history of severe persistent asthma, possible COPD and morbid obesity who presents for a follow-up visit. His last visit was September 13, 2021. He continues to note cough, wheezing, chest tightness and shortness of breath. Awakening every night due to respiratory symptoms. Using DuoNeb about twice per week for acute symptoms. Denies treatment with systemic corticosteroids, ER visits or hospitalizations for respiratory symptoms since his last visit. He attempted a home sleep study twice. The first study had insufficient data. For the second sleep study, he was unable to tolerate wearing the equipment. He continues to smoke 1/2 pack/day. He was intolerant to Chantix. Currently taking Wellbutrin. Denies significant nasal symptoms. Denies significant GERD symptoms. (From initial visit on 09/13/21 This is a self-referral for an allergy and immunology evaluation. Donnell Adams is a 46 year old male who presents for further evaluation of asthma. He has a history of asthma since childhood. He also has been smoking cigarettes since he was 15 years old. Up until recently he was smoking 2 packs/day. More recently he has cut back to 1/2 pack/day. He is taking Chantix. Respiratory symptoms include coughing, wheezing, chest tightness and shortness of breath. He was using albuterol 2-3 times per day for acute symptoms. Recently, his primary care provider prescribed Symbicort 160-4.52 puffs twice daily and DuoNeb 4 times daily. 1 month ago, he developed difficulty breathing while at work. He was transported by EMS to the emergency room. Wheezing was noted on physical exam. He was treated with albuterol and ipratropium nebulized and prednisone. Denies additional treatment with systemic corticosteroids or emergency room visits for respiratory symptoms in the past year. No prior hospitalizations for respiratory symptoms. Symptoms are worse at work. 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 Additional triggers include physical activity, upper respiratory infection and hot environments. He denies significant nasal and ocular symptoms outside of acute infections. Denies a history of nasal trauma or nasal polyposis. No prior imaging of the sinuses. He was on subcutaneous allergy immunotherapy for several years as a child with improvement in his symptoms. Denies systemic reactions to immunotherapy. Denies use of allergy medications including antihistamines and nasal sprays. History of adverse reaction to penicillin as a child. He does not know any details regarding the reaction. He believes he has subsequently taken amoxicillin and tolerated this without adverse reaction. He denies snoring. He complains of daytime fatigue. Denies significant GERD symptoms.) REVIEW OF SYSTEMS: Negative for fevers, chills, night sweats and unintentional weight loss. Significant for back pain following an injury at work All other review of systems negative except for those listed above. PAST MEDICAL HISTORY Diagnosis Date Asthma COPD (chronic obstructive pulmonary disease) ([facility]) Epilepsy ([facility]) not on medications Morbid obesity ([facility]) Tobacco use Partial nephrectomy for renal mass MEDICATIONS: buPROPion XL (WELLBUTRIN XL) 150 mg 24 hr tablet Take 150 mg by mouth once daily. tiotropium bromide (SPIRIVA RESPIMAT) 2.5 mcg/actuation inhaler Inhale 2 Puffs as instructed once daily. (Patient taking differently: Inhale 2 Puffs as instructed once daily. Patient taking twice daily.) budesonide-formoterol (SYMBICORT) 160-4.5 mcg/actuation inhaler Inhale 2 Puffs as instructed twice daily. ipratropium-albuterol (DUONEB) 0.5 mg-3 mg(2.5 mg base)/3 mL nebu 3 mL every 4 hours while awake. albuterol HFA (PROVENTIL HFA, VENTOLIN HFA) 90 mcg/actuation inhaler Inhale 2 Puffs as instructed every 4 hours as needed for wheezing/shortness of breath. ALLERGIES: Allergies As of Date: 01/31/2022 Allergen Noted Reaction PENICILLINS 10/16/2011 Unknown Fully Assessed 01/31/2022 PAST SURGICAL HISTORY Procedure Laterality Date NEPHRECTOMY PARTIAL Right 01/29/2016 stage 1-per patient, took oral medication. ORTHOPEDICS SURGERY HX right shoulder PAST SURGICAL HISTORY OF 2020 removed mass left testicle-benign FAMILY HISTORY: Allergic rhinitis:no. Asthma: no. Eczema: no. Cystic fibrosis: no. Immunodeficiency: no. SOCIAL HISTORY: Employer And Job Title: None on file Years Of Education Completed: Not specified Marital Status: Single Social History Tobacco Use Smoking status: Every Day Packs/day: 0.50 Years: 25.00 Pack years: 12.5 Types: Cigarettes Smokeless tobacco: Never Tobacco comments: Was smoking 2 ppd, now smoking 0.50 ppd. ENVIRONMENTAL HISTORY: Lives in a apartment Age of home: unknown years Heating: gas Woodburning fireplace in the home: no Air conditioning: Central air Basement: No basement Paul: [id number] carpeting Dust mite controls: Dust mite controls are not in place. Pets in the home: 1 dogs Outdoor animals: There are no outdoor animals Tobacco smoke: Exposure in the home. Physical Exam: Body mass index is 49.08 kg/m . GENERAL APPEARANCE:Well appearing, alert, in no acute distress, well-hydrated, well nourished. Obese HEENT: NCAT. EYES: conjunctiva and sclera normal. EARS: External ears normal. Canals clear. TM's normal. NOSE/SINUS: mild edema of the nasal mucosa with scant clear secretions bilaterally THROAT: no erythema NECK:neck supple, no adenopathy HEART:RRR with normal S1 and S2 ,no murmurs, no gallops, no rubs LUNGS: Diminished breath sounds throughout, no wheezes, rales or rhonchi EXTREMITIES:Extremities normal, No deformities, No skin discoloration and No edema SKIN: Skin color, texture, turgor normal. No rashes or lesions. Spirometry pre and postbronchodilator on January 28, 2022: Moderate obstruction with a significant bronchodilator response. FEV1 52% predicted prebronchodilator. Pulmonary function test on October 24, 2021: Moderate obstruction without a significant bronchodilator response. TLC and DLCO within normal limits. Residual volume and residual volume/TLC elevated consistent with air trapping. FEV1 61% prebronchodilator. Absolute eosinophil count on October 17, 2021: 480 ALLERGY SKIN TESTS:Deferred at initial visit due to patient preference/cost concerns. ASSESSMENT/PLAN: 1.) Severe persistent asthma, possible COPD: Take prednisone 40 mg once daily for 5 days Start Trelegy Ellipta 200-62.5-25 one inhalation once daily. Rinse mouth out after use. (Discontinue Symbicort and Spiriva) Start Singulair 10 mg at bedtime Continue albuterol HFA inhaler with spacer 2 puffs or DuoNeb every 4-6 hours as needed. He should continue to receive an annual influenza vaccine. Pulmonary consult placed for further evaluation and treatment Depending on patient preference, allergy skin tests may be completed to inhalant allergens at a future visit to evaluate for possible environmental triggers to his respiratory symptoms. 2.) Tobacco use disorder: Smoking cessation was strongly recommended. 3.) Morbid obesity and daytime fatigue: Patient was unable to complete HSAT 4.) History of penicillin allergy: Although patient reports he may have subsequently taken amoxicillin and tolerated this without adverse reaction, we were unable to verify this with the patient's pharmacy. Allergy skin tests may be completed to penicillin and Pre-Pen at a future visit. 5.) Discussed medication dosage, usage, side effects, and goals of treatment in detail. 6.) Follow-up in 8 weeks- patient will return sooner should new symptoms or problems arise. Absolute eosinophil count was 480 on October 09, 2021. Depending on clinical course, treatment with a biologic such as Nucala may be considered. Naun Nuñez MD documented in this encounter [facility] 01-31-2022 Nurse Note Using Duonebs nebulized about twice a week due to sob, cough and wheezing. These help. Using Spiriva and Symbicort 2 puffs twice daily-feels breathing is well controlled. Patient wasn't able to complete sleep study due to not being able to sleep with equipment. He has tried twice. Smoking 0.5 PPD. On wellbutrin to help him stop smoking. documented in this encounter [facility] 01-29-2022 Miscellaneous Notes Pt made aware of results. Taking inhalers as prescribed -- Spiriva 2 puffs daily and Symbicort 2 puffs twice a day. Pt using his albuterol and duonebs as needed, needs them about 2-3 times a week. Scheduled for follow up 01/31 at 0900. Please call patient and let him know that his spirometry showed moderate obstruction with significant improvement following albuterol, indicating that he has bronchial hyperreactivity. Review his asthma medications to ensure he is using them as prescribed. He needs to be scheduled for a follow-up visit with me. Naun Nuñez MD documented in this encounter [facility] 01-28-2022 History of Present illness Narrative PULM FUNCTION SMARTBLOCK: Provider: Naun Nuñez MD Assisting Tech: Shay Garcia RRT Spirometry w/BD: 1 documented in this encounter [facility] 12-19-2021 Hospital Discharge instructions Patient Education 12/19/2021 06:45:18 Lower Extremity Contusion Lower Extremity Contusion You have a contusion (bruise) of a lower extremity (leg, knee, ankle, foot, or toe). Symptoms include pain, swelling, and skin discoloration. No bones are broken. This injury may take from a few days to a few weeks to heal. During that time, the bruise may change from reddish in color, to purple-blue, to green-yellow, to yellow-brown. Home care Unless another medicine was prescribed, you can take acetaminophen, ibuprofen, or naproxen to control pain. (If you have chronic liver or kidney disease or ever had a stomach ulcer or gastrointestinal bleeding, talk with your doctor before using these medicines.) Elevate the injured area to reduce pain and swelling. As much as possible, sit or lie down with the injured area raised about the level of your heart. This is especially important during the first 48 hours. Ice the injured area to help reduce pain and swelling. Wrap a cold source (ice pack or ice cubes in a plastic bag) in a thin towel. Apply to the bruised area for 20 minutes every 1 to 2 hours the first day. Continue this 3 to 4 times a day until the pain and swelling goes away. If crutches have been advised, do not bear full weight on the injured leg until you can do so without pain. You may return to sports when you are able to put full weight and impact on the injured leg without pain. Follow up Follow up with your healthcare provider or our staff as advised. Call if you are not improving within the next 1 to 2 weeks. When to seek medical advice Call your healthcare provider right away if any of these occur: Increased pain or swelling Foot or toes become cold, blue, numb or tingly Signs of infection: Warmth, drainage, or increased redness or pain around the injury Inability to move the injured area , or any joints below the injured area. Frequent bruising for unknown reasons [id number] [employer]. [address] [place] [address], [place] [address]. All rights reserved. This information is not intended as a substitute for professional medical care. Always follow your healthcare professional's instructions. 12/19/2021 06:45:03 Knee Sprain Knee Sprain A sprain is an injury to the ligaments or capsule that holds a joint together. There are no broken bones. Most sprains take 3 to 6 weeks to heal. If it a severe sprain where the ligament is completely torn, it can take months to recover. Most knee sprains are treated with a splint, knee immobilizer brace, or elastic wrap for support. Severe sprains may rarely require surgery. Home care Stay off the injured leg as much as possible until you can walk on it without pain. If you have a lot of pain with walking, crutches or a walker may be prescribed. (These can be rented or purchased at many pharmacies and surgical or orthopedic supply stores). Follow your healthcare provider's advice about when to begin putting weight on that leg. Keep your leg elevated to reduce pain and swelling. When sleeping, place a pillow under the injured leg. When sitting, support the injured leg so it is above heart level. This is very important during the first 48 hours. Apply an ice pack over the injured area for 15 to 20 minutes every 3 to 6 hours. You should do this for the first 24 to 48 hours. You can make an ice pack by filling a plastic bag that seals at the top with ice cubes and then wrapping it with a thin towel. Continue to use ice packs for relief of pain and swelling as needed. As the ice melts, be careful to avoid getting your wrap, splint, or cast wet. After 48 hours, apply heat (warm shower or warm bath) for 15 to 20 minutes several times a day, or alternate ice and heat. You can place the ice pack directly over the splint. If you have to wear a [id number] knee brace, you can open it to apply the ice pack, or heat, directly to the knee. Never put ice directly on the skin. Always wrap the ice in a towel or other type of cloth. You may use mhra-kyc-jrvzeni pain medicine to control pain, unless another pain medicine was prescribed. If you have chronic liver or kidney disease or ever had a stomach ulcer or gastrointestinal bleeding, talk with your healthcare provider before using these medicines. If you were given a splint, keep it completely dry at all times. Bathe with your splint out of the water, protected with 2 large plastic bags, sealed with rubber bands or tape at the top end. If a fiberglass splint gets wet, you can dry it with a business division chair set to cool. If you have a nodr-uzj-futl knee brace, you can remove this to bathe, unless told otherwise. Follow-up care Follow up with your doctor as advised. Any X-rays you had today don t show any broken bones, breaks, or fractures. Sometimes fractures don t show up on the first X-ray. Bruises and sprains can sometimes hurt as much as a fracture. These injuries can take time to heal completely. If your symptoms don t improve or they get worse, talk with your doctor. You may need a repeat X-ray. If X-rays were taken, you will be told of any new findings that may affect your care. Call 911 Call 911 if you have: Shortness of breath Chest pain When to seek medical advice Call your healthcare provider right away if any of these occur: The splint or knee immobilizer brace becomes wet or soft The fiberglass cast or splint remains wet for more than 24 hours Pain or swelling increases The injured leg or toes become cold, blue, numb, or tingly [id number] [employer]. [address] [place] [address], [place] [address]. All rights reserved. This information is not intended as a substitute for professional medical care. Always follow your healthcare professional's instructions. Follow Up Care 12/19/2021 06:23:24 With: Address: [place], [place] When:2-4 days Comments:Keep your scheduled follow-up appointment with [facility] in [place] With:OTONIEL GOLDEN Address: [address] [place] [address] [phone] When:2-4 days [facility] 12-19-2021 Note Discharge Instructions Thank you for allowing [facility] to assist you with your healthcare needs. The following is important discharge information regarding your hospital visit. Diagnosis from Today's Visit Contusion of right knee Fall What to Do Next Instructions from Your Care Team Discharge Return to Work, School, or Sports (Return to Work, School, or Sports) - Ordered -- 12/19/21, 12/20/21, May return to: work, 12/19/21 7:44:00 EDT Post Acute Orders No qualifying data available. You Need to Schedule the Following Appointments Follow Up with When Within 2-4 days Why: Keep your scheduled follow-up appointment with [facility] in [place] Where: [place], [place] Follow Up with OTONIEL GOLDEN When Within 2-4 days Where: [address] [place] [address] [phone] Allergies penicillin Medications Please ask your primary doctor or pharmacist before taking any other medication not listed, including over the counter drugs, herbal medications, vitamins and or supplements as they may interact with your home medications. What How Much When Why Instructions Last Dose Unchanged albuterol (albuterol MDI (90 mcg/ inh) CFC free inhalation aerosol) 2 puff(s) by inhalation Four (4) times a day as needed for as needed for wheezing Unchanged albuterol (Proventil HFA MDI (90 mcg/ inh) inhalation aerosol) 2 puff(s) by inhalation Every 4 hours Unchanged albuterol-ipratropium (albuterol-ipratropium 2.5 mg-0.5 mg/ 3 mL inhalation solution) 3 Milliliter by inhalation Every 4 hours as needed for Wheezing Duration: 30 Days Unchanged budesonide-formoterol (Symbicort 160 mcg-4.5 mcg/ inh Inhaler) 2 puff(s) by inhalation Two (2) times a day Duration: 30 Days Unchanged DME (DME MISCellaneous) See instructions Asthma COPD with asthma Nebulizer tubing and supplies diagnosis asthma exacerbation/ COPD Unchanged varenicline (Chantix 1 mg oral tablet) 1 tab(s) by mouth Two (2) times a day Duration: 4 week(s) Please take this list to your next doctor s visit. Bring all medications you take, including over the counter medications, herbals and other supplements with you to your doctor s visit. Patients and families are reminded to discard old lists and to update any records with all medication providers or retail pharmacies. Education Materials Lower Extremity Contusion You have a contusion (bruise) of a lower extremity (leg, knee, ankle, foot, or toe). Symptoms include pain, swelling, and skin discoloration. No bones are broken. This injury may take from a few days to a few weeks to heal. During that time, the bruise may change from reddish in color, to purple-blue, to green-yellow, to yellow-brown. Home care Unless another medicine was prescribed, you can take acetaminophen, ibuprofen, or naproxen to control pain. (If you have chronic liver or kidney disease or ever had a stomach ulcer or gastrointestinal bleeding, talk with your doctor before using these medicines.) Elevate the injured area to reduce pain and swelling. As much as possible, sit or lie down with the injured area raised about the level of your heart. This is especially important during the first 48 hours. Ice the injured area to help reduce pain and swelling. Wrap a cold source (ice pack or ice cubes in a plastic bag) in a thin towel. Apply to the bruised area for 20 minutes every 1 to 2 hours the first day. Continue this 3 to 4 times a day until the pain and swelling goes away. If crutches have been advised, do not bear full weight on the injured leg until you can do so without pain. You may return to sports when you are able to put full weight and impact on the injured leg without pain. Follow up Follow up with your healthcare provider or our staff as advised. Call if you are not improving within the next 1 to 2 weeks. When to seek medical advice Call your healthcare provider right away if any of these occur: Increased pain or swelling Foot or toes become cold, blue, numb or tingly Signs of infection: Warmth, drainage, or increased redness or pain around the injury Inability to move the injured area , or any joints below the injured area. Frequent bruising for unknown reasons [id number] [employer]. [address] [place] [address], [place] [address]. All rights reserved. This information is not intended as a substitute for professional medical care. Always follow your healthcare professional's instructions. Knee Sprain A sprain is an injury to the ligaments or capsule that holds a joint together. There are no broken bones. Most sprains take 3 to 6 weeks to heal. If it a severe sprain where the ligament is completely torn, it can take months to recover. Most knee sprains are treated with a splint, knee immobilizer brace, or elastic wrap for support. Severe sprains may rarely require surgery. Home care Stay off the injured leg as much as possible until you can walk on it without pain. If you have a lot of pain with walking, crutches or a walker may be prescribed. (These can be rented or purchased at many pharmacies and surgical or orthopedic supply stores). Follow your healthcare provider's advice about when to begin putting weight on that leg. Keep your leg elevated to reduce pain and swelling. When sleeping, place a pillow under the injured leg. When sitting, support the injured leg so it is above heart level. This is very important during the first 48 hours. Apply an ice pack over the injured area for 15 to 20 minutes every 3 to 6 hours. You should do this for the first 24 to 48 hours. You can make an ice pack by filling a plastic bag that seals at the top with ice cubes and then wrapping it with a thin towel. Continue to use ice packs for relief of pain and swelling as needed. As the ice melts, be careful to avoid getting your wrap, splint, or cast wet. After 48 hours, apply heat (warm shower or warm bath) for 15 to 20 minutes several times a day, or alternate ice and heat. You can place the ice pack directly over the splint. If you have to wear a hdnc-xex-lcux knee brace, you can open it to apply the ice pack, or heat, directly to the knee. Never put ice directly on the skin. Always wrap the ice in a towel or other type of cloth. You may use xqjj-vvn-wqlbhed pain medicine to control pain, unless another pain medicine was prescribed. If you have chronic liver or kidney disease or ever had a stomach ulcer or gastrointestinal bleeding, talk with your healthcare provider before using these medicines. If you were given a splint, keep it completely dry at all times. Bathe with your splint out of the water, protected with 2 large plastic bags, sealed with rubber bands or tape at the top end. If a fiberglass splint gets wet, you can dry it with a business division chair set to cool. If you have a awxb-snk-bckx knee brace, you can remove this to bathe, unless told otherwise. Follow-up care Follow up with your doctor as advised. Any X-rays you had today don t show any broken bones, breaks, or fractures. Sometimes fractures don t show up on the first X-ray. Bruises and sprains can sometimes hurt as much as a fracture. These injuries can take time to heal completely. If your symptoms don t improve or they get worse, talk with your doctor. You may need a repeat X-ray. If X-rays were taken, you will be told of any new findings that may affect your care. Call 911 Call 911 if you have: Shortness of breath Chest pain When to seek medical advice Call your healthcare provider right away if any of these occur: The splint or knee immobilizer brace becomes wet or soft The fiberglass cast or splint remains wet for more than 24 hours Pain or swelling increases The injured leg or toes become cold, blue, numb, or tingly 9324-4751 [employer]. [address] [place] [address]. All rights reserved. This information is not intended as a substitute for professional medical care. Always follow your healthcare professional's instructions. Additional Information VACCINATE! IT SAVES LIVES! Members of the community who have not yet received the COVID-19 vaccine and would like to receive it can visit one of [facility] vaccine clinics. There are many vaccine clinic locations within the [facility]. For locations and available times, please visit [email or web address]. It is important to note that some COVID mobile vaccine clinics are held outdoors and may be canceled in rainy or stormy conditions. To learn more about pediatric vaccinations (ages 5-11), we invite you to visit the [facility] webpage. [email or web address] To learn more about the COVID-19 vaccine, we invite you to visit the [facility] website for a list of frequently asked questions. [email or web address] [email or web address] [facility] Patient Portal Access Instructions: Stay connected with your healthcare team and access your personal medical information anytime with the [facility] Patient Portal. If you would like a full copy of your medical records please contact the [facility] Medical Records Department Friday through Friday between 8a.m. and 4:30p.m. Please follow the directions below to access the portal: 1.Access the email account you provided upon registration to the [facility].2.Look for an invitation email from [facility].3.Open the email and access the invitation link: Accept Invitation to [facility] [employer]4.Fill in the required cohn to create your account. Sign into [email or web address] with your username and password that you created in the above steps to stay up to date. You can then view a summary of results, a summary of your visits, and the ability to download your summaries to your computer or send the information securely to a physician. Remember that your healthcare information is confidential, so carefully consider who you will allow to register on the [facility] Patient Portal for access to your information. You can also access the [facility] [employer] Patient Portal on the [employer] davy. Simply click on Health Records under Health Data and then click on the [facility] logo. HOW TO SAFELY DISPOSE OF PRESCRIPTION MEDICATIONS Please use one of the following methods to safely dispose of your unused medications. 1.Use a drug disposal kit: the drug disposal pouch allows you to safely discard your old and unused drugs. Ask your nurse to give you one when you are discharged.2.Visit a local take-back location: Many local pharmacies and police departments have programs that collect old and unwanted prescription drugs. Call your local pharmacy or go to http://bit.ly/9T2Br8u to find one close to you.3.Make use of household items: Use cat litter or old coffee grounds to dispose medications if other options are not available. Mix your drugs with these household products, seal them in an airtight container and throw it into the garbage. Call [facility]: [phone] to be sure your drugs can be disposed of in this way. Some medicines may require a different approach.4.Never flush your medications down the toilet. IF YOU HAVE BEEN PRESCRIBED AN OPIOIDS FOR PAIN If you have been prescribed an opioid (such as hydrocodone, oxycodone or morphine), it is critical to understand the possible side effects and risks of opioid pain medications. Even when taken as directed, opioids can have several side effects including: Tolerance, meaning you might need to take more of a medication for the same pain relief. Nausea, vomiting and/or constipation. Sleepiness, dizziness, dry mouth, confusion, depression or itching. Physical dependence, meaning you have withdrawal symptoms when a medication is stopped ? this can develop within a few days. KNOW YOUR RESPONSIBILITIES It is important to know exactly how much and how often to take the opioid pain medications you are prescribed. Never take opioids in higher amounts or more often than prescribed. Do not combine opioids with alcohol or other drugs that cause drowsiness, such as benzodiazepines, also known as benzos, including diazepam and alprazolam, muscle relaxants or sleep aids. Never sell or share prescription opioids. This is illegal. Store opioids in a secure place and out of reach of others (including children, family, friends and visitors). The last page(s) of this document has been signed and retained as a CHART COPY Signatures Patient Education Materials Lower Extremity Contusion Knee Sprain Medication Leaflets My discharge plan and instructions have been reviewed and explained to me and I,DONNELL ADAMS understand my current condition and have read and understand these discharge instructions. I have received a written copy of the plan/instructions. If I have questions, I am aware that I should contact my doctor. Patient/Slurry Control Tender Signature: Date/Time: Relationship to Patient: ____ Witness Name/Signature: Date/Time: [facility] 12-19-2021 Note ORIGINAL EXAMINATION: THREE XRAY VIEWS OF THE RIGHT KNEE 12/19/2021 7:12 am COMPARISON: None. HISTORY: ORDERING SYSTEM PROVIDED HISTORY: Reason for Exam: fall Right knee pain FINDINGS: There is no fracture or dislocation of the right knee. The joint spaces are maintained. There is no evidence of joint effusion. No periarticular calcifications or foreign bodies are present. IMPRESSION: No radiographic abnormality of the right knee. Interpreted by: Hamilton Markham MD Preliminary Report By: Hamilton Markham MD Electronically signed By Hamilton Markham MD Dictated Date: 12/19/2021 7:26:05 AM Prelim Date: 12/19/2021 7:27:06 AM Sign Date: 12/19/2021 7:27:06 AM Ordering Provider: AUGIE [facility] 12-19-2021 Note ORIGINAL EXAMINATION: THREE XRAY VIEWS OF THE RIGHT KNEE 12/19/2021 7:12 am COMPARISON: None. HISTORY: ORDERING SYSTEM PROVIDED HISTORY: Reason for Exam: fall Right knee pain FINDINGS: There is no fracture or dislocation of the right knee. The joint spaces are maintained. There is no evidence of joint effusion. No periarticular calcifications or foreign bodies are present. IMPRESSION: No radiographic abnormality of the right knee. Interpreted by: Hamilton Markham MD Preliminary Report By: Hamilton Markham MD Electronically signed By Hamilton Markham MD Dictated Date: 12/19/2021 7:26:05 AM Prelim Date: 12/19/2021 7:27:06 AM Sign Date: 12/19/2021 7:27:06 AM Ordering Provider: AUGIE [facility] 12-06-2021 Miscellaneous Notes Marga, from [facility], is requesting office from ortho visits to be faxed to [phone], Atten : Marga. documented in this encounter [facility] 12-04-2021 History of Present illness Narrative Images from the original note were not included. Reason for Visit/Chief Complaint Donnell Adams is a 46 year old male who presents today for a new evaluation of following complaint: Patient presents with: Right Hip - New, Pain, Numbness History of Present Illness: PAIN EVALUATION 11/28/2021 1522 Pain Level: 7 Pain Location: Hip-Right Description: Sharp;Numbness;Other: See comment;Shooting;Tingling Pinching Duration Amount of Time: 7 10/08/2021 DOI Duration Units: Weeks Frequency: Intermittent Intervention/Comfort measure: Reposition;Relaxation;Positioning ;Other: See comment;Medication At home exercises, tylenol HPI: Donnell Adams is a 46 year old male presenting today with right lateral hip pain, worse with layng on leg, was last seen on 10/09 in ED and admitted for right hip pain after fall, here today for right hip pain, mri negative for fracture, history of back issues, morbid obesity, as well as smoker, copd, epilepsy, . Pain history is noted as above. States fell at work onto right hip, is able to walk better now, was seen by PT, no sings of dvt or infection and was discharged home 10/09. Pain localized to lateral hip, no numbness, tingling or other constitutional symptoms. Previous Treatments: Ice: No Heat: No Brace: No NSAIDs: Yes, Injections: No Surgeries: No Physical Therapy: Yes Review of Systems: Patient did not have, and does not currently have, any weight loss, malaise, fever, chills, headache, chest pain, chest pressure, palpitations, cough, shortness of breath, orthopnea, paroxsymal nocturnal dyspnea, nausea, vomiting, diarrhea, constipation, melena, hematochezia, urinary difficulties, prolonged bleeding, easily bruising, heat or cold intolerance, new onset joint pain or swelling, new onset extremity weakness or numbness, new onset auditory or visual disturbances, lightheadedness, dizziness, partial loss of consciousness or full loss of consciousness. Current Outpatient Medications on File Prior to Visit Medication Sig tiotropium bromide (SPIRIVA RESPIMAT) 2.5 mcg/actuation inhaler Inhale 2 Puffs as instructed once daily. budesonide-formoterol (SYMBICORT) 160-4.5 mcg/actuation inhaler Inhale 2 Puffs as instructed twice daily. ipratropium-albuterol (DUONEB) 0.5 mg-3 mg(2.5 mg base)/3 mL nebu 3 mL every 4 hours while awake. albuterol HFA (PROVENTIL HFA, VENTOLIN HFA) 90 mcg/actuation inhaler Inhale 2-4 Puffs as instructed every 2 hours as needed for wheezing/shortness of breath. varenicline (CHANTIX) 1 mg tablet Take 0.5 mg by mouth twice daily. (Patient not taking: Reported on 11/28/2021) albuterol HFA (PROVENTIL HFA, VENTOLIN HFA) 90 mcg/actuation inhaler Inhale 2 Puffs as instructed every 6 hours. (Patient not taking: Reported on 11/28/2021) albuterol 90 mcg/actuation aero Inhale 1-2 Puffs as instructed four times daily as needed (Wheezing and shortness of Breath). (Patient not taking: Reported on 11/28/2021) No current facility-administered medications on file prior to visit. ALLERGIES Allergen Reactions Penicillins Unknown Physical Exam: Vitals: There were no vitals taken for this visit. Psych: Pleasant, good affect and mood General Appearance: Well appearing, alert, in no acute distress, well-hydrated, well nourished.. Skin: Skin color, texture, turgor normal, no suspicious rashes or lesions. Peripheral Pulses: Normal. Neurologic: Gait normal. Reflexes normal and symmetric. Sensation grossly intact.. Lymph Nodes: No cervical lymphadenopathy, No supraclavicular lymphadenopathy, No axillary lymphadenopathy., and No inguinal lymphadenopathy.. Respiratory: No recent pulmonary infection, hemoptysis, chronic cough, or shortness of breath at rest Rheumatologic: Joint deformities: right lateral hip pain Right Hip Exam Tenderness The patient is experiencing tenderness in the greater trochanter. Range of Motion The patient has normal right hip ROM. Muscle Strength The patient has normal right hip strength. Other Erythema: absent Sensation: normal Pulse: present Comments: Normal gait, No back pain with straight leg raise Left Hip Exam Left hip exam is normal. Tenderness The patient is experiencing no tenderness. Range of Motion The patient has normal left hip ROM. Muscle Strength The patient has normal left hip strength. Other Erythema: absent Sensation: normal Pulse: present Imaging: Last MRI Hip/Pelvis - Impression Only MRI HIP WO IVCON RT Exam End: 10/09/2021 11:46 AM (Final result) Impression: IMPRESSION: 1. No evidence of avascular necrosis, fracture, or bone contusion of the right hip. 2. Intact appearing right acetabular labrum. 3. Mild cartilage irregularity of the superior acetabulum. 4. Asymmetric bone extending off the right femoral neck which may result in cam type impingement.... Assessment and Plan: Impression: No diagnosis found. Plan: Weight loss Core stability Spine eval by spine physician Follow up prn Today, in detail, through a thorough evaluation, we discussed possible etiologies of pain and our plans for further diagnostic and therapeutic interventions. We discussed strategies for decreasing pain and improving strength, stability and motion. Patient's questions were answered in detailed. Patient verbalizes understanding and agrees with the treatment plan as discussed. Nothing from an orthopaedic surgery nature to do for patient acutely Would defer to [facility] [place] [facility] por and evaluate for back etiology as no pain and not surgical candidate Kimberlyn Weber DO documented in this encounter [facility] 11-23-2021 Miscellaneous Notes Called the patient to let him know he is on the schedule 11/28/21 at 3:00 PM. He did not answer so I left him a voicemail. I told him if this appointment does not work he would need to call us back to reschedule or cancel. He does need to be seen before his authorization runs out on his C9. Called and left voicemail for patient to call back. HE MUST BE SCHEDULED BEFORE 12/07. has 2 available appointments for this patient. Called patient again, left a voicemail asking him to call [phone] to reschedule. He can come in 12/05/21, 3:15 or 3:45. Called and left patient voicemail asking them to call back to reschedule appointment on 11/30/21. Appointment could be moved to following week. Called the patient to reschedule the appointment on 11/30/2021. Provider will be in surgery all day. Please assist the patient with rescheduling when they call back, thanks! documented in this encounter [facility] 11-15-2021 History of Present illness Narrative Radiology Service Progress Note PATIENT NAME: Donnell Adams DATE OF SERVICE: November 15, 2021 TIME: 10:04 AM PATIENT IDENTITY VERIFICATION COMPLETED USING TWO (2) IDENTIFIERS: Name and Date of confirmed by patient verbally. FALL SCREENING: Has the patient had 2 falls in the last year or 1 fall with injury or currently using an Ambulatory Assistive Device (Walker, Cane, Wheelchair, Crutches, etc.)? No PATIENT GENDER DATA: Male PATIENT RELEVANT IMPLANT DATA REVIEWED: Not Applicable RADIOLOGY DEPARTMENT: General X-ray: Exam(s) Completed: Spine X-Ray(s): Lumbar AP / LAT / L5-S1 PERIPHERAL IV DATA: Not applicable SIGNED BY: FREDY Quezada November 15, 2021 10:04 AM documented in this encounter [facility] 11-07-[address] Hong thinks patient would be best to follow up with Spine. Message to their office to assist in scheduling. Duplicate appointment request. Rhiannon Gupta [facility] November 07, 2021 2:43 PM ----- Message from Stephanie Mcmahon sent at 11/07/2021 1:15 PM EDT ----- Regarding: Orthopedics / Open Hip: Pain / Recent ED Visit / [facility] Contact: Patient has been identified by name and Date of (Y/N): y Patient: Donnell Adams Date of : 1975 Previous Provider Seen: n/a Body Part(s) Identified: Right Hip Diagnosis/Reason For Visit: Right Hip Reason for the call/escalation: Right Pain If reason for call/escalation is discharge from ED/ER or Hospital, which facility was the patient seen at: [facility] 11.07.2021 [facility] Was an appointment scheduled (Y/N): n Person calling if other than patient: y [employer] Return call to if other than patient: n Best contact number: [phone] [facility] Thank you, Stephanie Mcmahon November 07, 2021 1:15 PM documented in this encounter [facility] 11-07-2021 Miscellaneous Notes ----- Message from Stephanie Mcmahon sent at 11/07/2021 1:11 PM EDT ----- Regarding: Orthopedics / Open Hip: Pain / Recent ED Visit Contact: Patient has been identified by name and Date of (Y/N): y Patient: Donnell Adams Date of : 1975 Previous Provider Seen: n/a Body Part(s) Identified: Right Hip Diagnosis/Reason For Visit: Right Hip Pain Reason for the call/escalation: Right Hip Pain If reason for call/escalation is discharge from ED/ER or Hospital, which facility was the patient seen at: [facility] 11.07.2021 Was an appointment scheduled (Y/N): n Person calling if other than patient: y [employer] At Work Return call to if other than patient: n Best contact number: [phone] Thank you, Stephanie Mcmahon November 07, 2021 1:12 PM documented in this encounter [facility] 11-07-2021 Miscellaneous Notes Patient rescheduled same day, later in the day. Called and left a voicemail for patient to call back to reschedule 11/30/2021 appointment. Please assist with reschedule when patient calls. documented in this encounter [facility] 10-30-2021 Hospital Discharge instructions Patient Education 10/30/2021 20:38:09 Hip Contusion Hip Contusion A contusion is another word for a bruise. It happens when small blood vessels break open and leak blood into the nearby area. A hip contusion can result from a bump, hit, or fall. Symptoms of a contusion often include changes in skin color (bruising), swelling, and pain. It may take several hours for a deep bruise to show up. If the injury is severe, you may need an X-ray to check for broken bones. Swelling should decrease in a few days. Bruising and pain may take several weeks to go away. Home care Unless another medicine was prescribed, you may take acetaminophen, ibuprofen, or naproxen to help relieve pain and swelling. If needed, stronger pain medicines may be prescribed. Take all medicines as directed. Ice the bruised area to help reduce pain and swelling. Wrap a cold source (ice pack or ice cubes in a plastic bag) in a thin towel. Apply the cold source to the bruised area for 20 minutes every 1 to 2 hours the first day. Continue this 3 to 4 times a day until the pain and swelling goes away. If walking causes pain, use crutches or a walker until you can walk without pain. These items can be rented at most pharmacies and orthopedic supply stores. If your injury is keeping you from moving around or caring for yourself properly, you may qualify for services such as home healthcare. Check with your doctor and insurance company to see if this type of care is covered. Follow-up Follow up with your healthcare provider as advised. When to seek medical advice Call your healthcare provider right away if any of these occur: Increased pain, bruising, or swelling near the injured area Decreased ability to bear weight on the injured side Pain or swelling develops below the knee Chest pain or shortness of breath [id number] [employer]. [address] [place] [address]. All rights reserved. This information is not intended as a substitute for professional medical care. Always follow your healthcare professional's instructions. Follow Up Care 10/30/2021 20:25:47 With:ANNI DURBIN MD, Orthopedic Address: [address] [place] [address] [place] [address]- When:3-7 days With:Go to emergency room if symptoms worsen Address:Unknown When:2-4 days With:[facility] Address: [address] [place] [address] [place] [address]- [phone] When:2-4 days [facility] 10-30-2021 Note ORIGINAL EXAMINATION: ONE XRAY VIEW OF THE PELVIS AND TWO XRAY VIEWS RIGHT HIP 10/30/2021 8:54 pm COMPARISON: None. HISTORY: ORDERING SYSTEM PROVIDED HISTORY: Reason for Exam: pain. Fall 3 weeks ago at work. FINDINGS: No acute fracture or dislocation. Femoral heads are seated appropriately within the acetabula. Pelvic ring is intact. No significant degenerative changes. No radiopaque foreign body. IMPRESSION: No acute fracture or dislocation. I have personally reviewed the images of this examination and agree with the resident's findings and interpretation. Interpreted by: Elbert Rowell Preliminary Report By: Irwin Juan Electronically signed By Elbert Rowell Dictated Date: 10/30/2021 8:59:27 PM Prelim Date: 10/30/2021 9:01:52 PM Sign Date: 10/30/2021 9:31:06 PM Ordering Provider: SANDRA ANDRES [facility] 10-30-2021 Note Discharge Instructions Thank you for allowing [facility] to assist you with your healthcare needs. The following is important discharge information regarding your hospital visit. Diagnosis from Today's Visit Hip pain Pain in right leg Leg pain-swelling What to Do Next Instructions from Your Care Team Take Flexeril as prescribed for pain. Do not exceed the recommended dose. Do not take Flexeril before operating heavy machinery. May take Tylenol and or Motrin otherwise. Follow-up with your primary care provider. Follow-up with Dr. Durbin of orthopedics if continued pain. Follow-up tomorrow for outpatient ultrasound to rule out DVT. You were given an order here for the ultrasound. Return the emergency department if you experience worsening symptoms or any other care concern. No qualifying data available. Post Acute Orders No qualifying data available. You Need to Schedule the Following Appointments Follow Up with ANNI DURBIN MD, Orthopedic When Within 3-7 days Where: [address] [facility] [place], [place] [id number]- Follow Up with Go to emergency room if symptoms worsen When Within 2-4 days Follow Up with OTONIEL GOLDEN APRN-MICHELLE When Within 2-4 days Where: [address] [facility] [place] [address]- [phone] Allergies penicillin Medications Please ask your primary doctor or pharmacist before taking any other medication not listed, including over the counter drugs, herbal medications, vitamins and or supplements as they may interact with your home medications. What How Much When Why Instructions Last Dose New cyclobenzaprine (cyclobenzaprine 10 mg oral tablet) 1 tab(s) by mouth Three (3) times a day Hip pain Pain in right leg Duration: 5 Days Printed Prescription Unchanged albuterol (albuterol MDI (90 mcg/ inh) CFC free inhalation aerosol) 2 puff(s) by inhalation Four (4) times a day as needed for as needed for wheezing Unchanged albuterol (Proventil HFA MDI (90 mcg/ inh) inhalation aerosol) 2 puff(s) by inhalation Every 4 hours Unchanged albuterol-ipratropium (albuterol-ipratropium 2.5 mg-0.5 mg/ 3 mL inhalation solution) 3 Milliliter by inhalation Every 4 hours as needed for Wheezing Duration: 30 Days Unchanged budesonide-formoterol (Symbicort 160 mcg-4.5 mcg/ inh Inhaler) 2 puff(s) by inhalation Two (2) times a day Duration: 30 Days Unchanged DME (DME MISCellaneous) See instructions Asthma COPD with asthma Nebulizer tubing and supplies diagnosis asthma exacerbation/ COPD Unchanged varenicline (Chantix 1 mg oral tablet) 1 tab(s) by mouth Two (2) times a day Duration: 4 week(s) Please take this list to your next doctor s visit. Bring all medications you take, including over the counter medications, herbals and other supplements with you to your doctor s visit. Patients and families are reminded to discard old lists and to update any records with all medication providers or retail pharmacies. Education Materials Hip Contusion A contusion is another word for a bruise. It happens when small blood vessels break open and leak blood into the nearby area. A hip contusion can result from a bump, hit, or fall. Symptoms of a contusion often include changes in skin color (bruising), swelling, and pain. It may take several hours for a deep bruise to show up. If the injury is severe, you may need an X-ray to check for broken bones. Swelling should decrease in a few days. Bruising and pain may take several weeks to go away. Home care Unless another medicine was prescribed, you may take acetaminophen, ibuprofen, or naproxen to help relieve pain and swelling. If needed, stronger pain medicines may be prescribed. Take all medicines as directed. Ice the bruised area to help reduce pain and swelling. Wrap a cold source (ice pack or ice cubes in a plastic bag) in a thin towel. Apply the cold source to the bruised area for 20 minutes every 1 to 2 hours the first day. Continue this 3 to 4 times a day until the pain and swelling goes away. If walking causes pain, use crutches or a walker until you can walk without pain. These items can be rented at most pharmacies and orthopedic supply stores. If your injury is keeping you from moving around or caring for yourself properly, you may qualify for services such as home healthcare. Check with your doctor and insurance company to see if this type of care is covered. Follow-up Follow up with your healthcare provider as advised. When to seek medical advice Call your healthcare provider right away if any of these occur: Increased pain, bruising, or swelling near the injured area Decreased ability to bear weight on the injured side Pain or swelling develops below the knee Chest pain or shortness of breath [id number] [employer]. [address] [place] [address], [place] [address]. All rights reserved. This information is not intended as a substitute for professional medical care. Always follow your healthcare professional's instructions. Additional Information VACCINATE! IT SAVES LIVES! Members of the community who have not yet received the COVID-19 vaccine and would like to receive it can visit one of [facility] vaccine clinics. There are many vaccine clinic locations within the [facility]. For locations and available times, please visit [email or web address]. It is important to note that some COVID mobile vaccine clinics are held outdoors and may be canceled in rainy or stormy conditions. To learn more about pediatric vaccinations (ages 5-11), we invite you to visit the [employer] webpage. [email or web address] To learn more about the COVID-19 vaccine, we invite you to visit the [facility] website for a list of frequently asked questions. [email or web address] [email or web address] [facility] [employer] Patient Portal Access Instructions: Stay connected with your healthcare team and access your personal medical information anytime with the [facility] Patient Portal. If you would like a full copy of your medical records please contact the [facility] Medical Records Department Friday through Friday between 8a.m. and 4:30p.m. Please follow the directions below to access the portal: 1.Access the email account you provided upon registration to the [facility].2.Look for an invitation email from [facility].3.Open the email and access the invitation link: Accept Invitation to [facility].Fill in the required cohn to create your account. Sign into www.[employer] with your username and password that you created in the above steps to stay up to date. You can then view a summary of results, a summary of your visits, and the ability to download your summaries to your computer or send the information securely to a physician. Remember that your healthcare information is confidential, so carefully consider who you will allow to register on the [facility] Patient Portal for access to your information. You can also access the [employer] Patient Portal on the [employer]. Simply click on Health Records under Health Data and then click on the [employer] logo. HOW TO SAFELY DISPOSE OF PRESCRIPTION MEDICATIONS Please use one of the following methods to safely dispose of your unused medications. 1.Use a drug disposal kit: the drug disposal pouch allows you to safely discard your old and unused drugs. Ask your nurse to give you one when you are discharged.2.Visit a local take-back location: Many local pharmacies and police departments have programs that collect old and unwanted prescription drugs. Call your local pharmacy or go to http://Clinkle.[employer]/5Y3Xn2v to find one close to you.3.Make use of household items: Use cat litter or old coffee grounds to dispose medications if other options are not available. Mix your drugs with these household products, seal them in an airtight container and throw it into the garbage. Call [facility]: [phone] to be sure your drugs can be disposed of in this way. Some medicines may require a different approach.4.Never flush your medications down the toilet. IF YOU HAVE BEEN PRESCRIBED AN OPIOIDS FOR PAIN If you have been prescribed an opioid (such as hydrocodone, oxycodone or morphine), it is critical to understand the possible side effects and risks of opioid pain medications. Even when taken as directed, opioids can have several side effects including: Tolerance, meaning you might need to take more of a medication for the same pain relief. Nausea, vomiting and/or constipation. Sleepiness, dizziness, dry mouth, confusion, depression or itching. Physical dependence, meaning you have withdrawal symptoms when a medication is stopped ? this can develop within a few days. KNOW YOUR RESPONSIBILITIES It is important to know exactly how much and how often to take the opioid pain medications you are prescribed. Never take opioids in higher amounts or more often than prescribed. Do not combine opioids with alcohol or other drugs that cause drowsiness, such as benzodiazepines, also known as benzos, including diazepam and alprazolam, muscle relaxants or sleep aids. Never sell or share prescription opioids. This is illegal. Store opioids in a secure place and out of reach of others (including children, family, friends and visitors). The last page(s) of this document has been signed and retained as a CHART COPY Signatures Patient Education Materials Hip Contusion Medication Leaflets My discharge plan and instructions have been reviewed and explained to me and I,DONNELL ADAMS understand my current condition and have read and understand these discharge instructions. I have received a written copy of the plan/instructions. If I have questions, I am aware that I should contact my doctor. Patient/Slurry Control Tender Signature: Date/Time: Relationship to Patient: ____ Witness Name/Signature: Date/Time: [facility] 10-30-2021 Note ORIGINAL EXAMINATION: ONE XRAY VIEW OF THE PELVIS AND TWO XRAY VIEWS RIGHT HIP 10/30/2021 8:54 pm COMPARISON: None. HISTORY: ORDERING SYSTEM PROVIDED HISTORY: Reason for Exam: pain. Fall 3 weeks ago at work. FINDINGS: No acute fracture or dislocation. Femoral heads are seated appropriately within the acetabula. Pelvic ring is intact. No significant degenerative changes. No radiopaque foreign body. IMPRESSION: No acute fracture or dislocation. I have personally reviewed the images of this examination and agree with the resident's findings and interpretation. Interpreted by: Elbert Rowell Preliminary Report By: Irwin Juan Electronically signed By Elbert Rowell Dictated Date: 10/30/2021 8:59:27 PM Prelim Date: 10/30/2021 9:01:52 PM Sign Date: 10/30/2021 9:31:06 PM [facility]ing [facility] Miscellaneous Notes Patient aware of below. Transferred to scheduling call center to schedule follow up with breathing tests in 3 months. Let patient know that his spirometry showed moderate obstruction and air trapping. These findings are consistent with asthma. Exhaled nitric oxide level was normal I would like him to start using Spiriva 2 puffs once a day every day on a regular basis. He should use this in addition to Symbicort 2 puffs twice a day. I would like to see him for a follow-up visit with repeat spirometry and 3 months. The following approved medication requests have been transmitted electronically. Signed Prescriptions Disp Refills tiotropium bromide (SPIRIVA RESPIMAT) 2.5 mcg/actuation inhaler 1 Inhaler 11 Sig: Inhale 2 Puffs as instructed once daily. Authorizing Provider: NAUN NUÑEZ MD documented in this encounter [facility] 10-24-2021 Procedure note Associated Order(s): NITRIC OXIDE, EXHALED RESPIRATORY THERAPY ORAL EXHALED NITRIC OXIDE SERVICE DATE: 10/24/2021 SERVICE TIME: 1:22 PM Oral Exhaled Nitric Oxide measurement: 6.0 (ppb) Normal: Adult 5-20 ppb, pediatric (<12 years) 5-15 ppb High Normal / Increased: Adult 20-35 ppb, pediatric (<12 years) 15-25 ppb Moderately raised exhaled Nitric Oxide may indicate underlying inflammation, but note that: Cold and influenza can raise exhaled Nitric Oxide and some patients have higher baseline exhaled Nitric Oxide levels than others. High: Adult >35 ppb, pediatric (<12 years) >25 ppb Indicative of ongoing eosinophilic inflammation. Symptomatic patient likely to respond to steroids. Possible causes (if already on steroids): Poor compliance, recent allergen exposure, steroid dose inadequate, and steroid resistance. Note that not all patients with high exhaled nitric oxide levels display symptoms. Oral Exhaled Nitric Oxide measurement (Previous Encounters) Test Date Oral Exhaled Nitric Oxide (ppb) 10/24/2021 6.0 NAME: Shay Garcia RRT PATIENT NAME: Donnell Adams DATE: October 24, 2021 TIME: 1:22 PM documented in this encounter [facility] 10-24-2021 History of Present illness Narrative PULM FUNCTION SMARTBLOCK: Provider: Naun Nuñez MD Assisting Tech: Shay Garcia RRT Spirometry w/BD: 1 DLCO: 1 LV - Box: 1 Exhaled Nitric Oxide: 1 documented in this encounter [facility] documented as of this encounter (statuses as of 10/24/2021) [facility] History of Past illness Narrative* Problem Noted Date Resolved Date Fall (on)(from) incline, initial encounter 10/0910/09/2021 documented as of this encounter (statuses as of 10/24/2021) [facility] History of Past illness Narrative* Problem Noted Date Resolved Date Fall (on)(from) incline, initial encounter 10/0910/09/2021 documented as of this encounter (statuses as of 10/25/2021) [facility] History of Past illness Narrative* Problem Noted Date Resolved Date Fall (on)(from) incline, initial encounter 10/0910/09/2021 documented as of this encounter (statuses as of 11/07/2021) [facility] History of Past illness Narrative* Problem Noted Date Resolved Date Fall (on)(from) incline, initial encounter 10/0910/09/2021 documented as of this encounter (statuses as of 11/16/2021) [facility] History of Past illness Narrative* Problem Noted Date Resolved Date Fall (on)(from) incline, initial encounter 10/0910/09/2021 documented as of this encounter (statuses as of 11/29/2021) [facility] History of Past illness Narrative* Problem Noted Date Resolved Date Fall (on)(from) incline, initial encounter 10/0910/09/2021 documented as of this encounter (statuses as of 12/04/2021) [address]12-2022 History of Past illness Narrative* Problem Noted Date Resolved Date Fall (on)(from) incline, initial encounter 10/0910/09/2021 documented as of this encounter (statuses as of 01/03/2022) [address]12-2022 History of Past illness Narrative* Problem Noted Date Resolved Date Fall (on)(from) incline, initial encounter 10/0910/09/2021 documented as of this encounter (statuses as of 01/28/2022) [facility] History of Past illness Narrative* Problem Noted Date Resolved Date Fall (on)(from) incline, initial encounter 10/0910/09/2021 documented as of this encounter (statuses as of 01/30/2022) [address]12-2022 History of Past illness Narrative* Problem Noted Date Resolved Date Fall (on)(from) incline, initial encounter 10/0910/09/2021 documented as of this encounter (statuses as of 02/01/2022) [facility] History of Past illness Narrative* Problem Noted Date Resolved Date Fall (on)(from) incline, initial encounter 10/0910/09/2021 documented as of this encounter (statuses as of 02/27/2022) [facility] History of Past illness Narrative* Problem Noted Date Resolved Date Fall (on)(from) incline, initial encounter 10/0910/09/2021 documented as of this encounter (statuses as of 04/05/2022) [address]-2022 History of Past illness Narrative* Problem Noted Date Resolved Date Fall (on)(from) incline, initial encounter 10/0910/09/2021 documented as of this encounter (statuses as of 04/08/2022) [address]12-2022 History of Past illness Narrative* Problem Noted Date Resolved Date Fall (on)(from) incline, initial encounter 10/0910/09/2021 documented as of this encounter (statuses as of 05/31/2022) [address]12-2022 History of Past illness Narrative* Problem Noted Date Resolved Date Fall (on)(from) incline, initial encounter 10/0910/09/2021 documented as of this encounter (statuses as of 06/01/2022) [address]12-2022 History of Past illness Narrative* Problem Noted Date Resolved Date Fall (on)(from) incline, initial encounter 10/0910/09/2021 documented as of this encounter (statuses as of 06/03/2022) [address]12-2022 History of Past illness Narrative* Problem Noted Date Resolved Date Fall (on)(from) incline, initial encounter 10/0910/09/2021 documented as of this encounter (statuses as of 06/03/2022) [address]-2022 History of Past illness Narrative* Problem Noted Date Resolved Date Fall (on)(from) incline, initial encounter 10/0910/09/2021 documented as of this encounter (statuses as of 06/07/2022) [address]12-2022 History of Past illness Narrative* Problem Noted Date Resolved Date Fall (on)(from) incline, initial encounter 10/0910/09/2021 documented as of this encounter (statuses as of 06/11/2022) [address]12-2022 History of Past illness Narrative* Problem Noted Date Resolved Date Fall (on)(from) incline, initial encounter 10/0910/09/2021 documented as of this encounter (statuses as of 06/12/2022) [address]12-2022 History of Past illness Narrative* Problem Noted Date Resolved Date Fall (on)(from) incline, initial encounter 10/0910/09/2021 documented as of this encounter (statuses as of 08/06/2022) [address]12-2022 History of Past illness Narrative* Problem Noted Date Resolved Date Fall (on)(from) incline, initial encounter 10/0910/09/2021 documented as of this encounter (statuses as of 08/08/2022) [facility]07-12-[facility]22 History of Past illness Narrative* Problem Noted Date Resolved Date Fall (on)(from) incline, initial encounter 10/0910/09/2021 documented as of this encounter (statuses as of 08/27/2022) [facility]07-12-2022 History of Past illness Narrative* Problem Noted Date Resolved Date Fall (on)(from) incline, initial encounter 10/0910/09/2021 documented as of this encounter (statuses as of 09/03/2022) [facility]07-12-2022 History of Past illness Narrative* Problem Noted Date Diagnosed Date Resolved Date Fall (on)(from) incline, initial encounter 10/09/2021 10/09/2021 documented as of this encounter (statuses as of 11/15/2022) [facility]-12-[facility] History of Past illness Narrative* Problem Noted Date Diagnosed Date Resolved Date Fall (on)(from) incline, initial encounter 10/09/2021 10/09/2021 documented as of this encounter (statuses as of 11/18/2022) [facility] History of Present illness Narrative* Moni Marx - 10/09/2021 8:18 AM EDT Sleep Study Check-In Documentation Date: October 09, 2021 Name: Donnell Adams Comments: HST was returned in working order with all sleep questionnaires. Study failed due to short study time. Redeployment scheduled for 10/23. Moni Marx * Moni Marx - 10/02/2021 2:18 PM EDT [employer]# [id number] Mail out date:10/02/21 [employer] Shipping #:[id number] [employer] Return #:[id number] * Aaron Elliott III, PhD - 09/23/2021 4:33 PM EDT September 23, 2021 Standing PSG Orders signed in the last 90 days None Future PSG Orders signed in the last 90 days Ordered Auth. provider HOME SLEEP APNEA TEST (HSAT) [[id number]] 09/13/21 Naun Nuñez MD Assoc. diagnoses: Dyspnea, unspecified type [R06.00] Q: Indications: A: Obstructive sleep apnea Q: STOP-BANG conditions - Select All That Apply: A: GENDER = male A2: BMI > 35 kg/m2 Q: Current use of supplemental oxygen during sleep period?: A: No All Prior Sleep Studies (past 365 days) Some values may be hidden. Unless noted otherwise, only the newest values recorded on each date aredisplayed. Sleep Studies HOME SLEEP APNEA TEST (HSAT) Future Expected: Expires: 09/13/22 BMI Readings from Last 2 Encounters: 09/13/21 : 46.84 kg/m 08/13/21 : 47.76 kg/m PAST MEDICAL HISTORY Diagnosis Date Asthma COPD (chronic obstructive pulmonary disease) (HCC) Epilepsy (HCC) not on medications Morbid obesity (HCC) Tobacco use The medical record was reviewed to determine if the proposed sleep study conforms to the AASM Practice Parameters for the Indications for Polysomnography and Related Procedures, or if the sleep studyis indicated for other reasons. Indications for study: MARIE suspected with comorbid medical or sleep disorders: Morbid obesity (BMI>40 kg/m2) Abnormal/injurious sleep activity(seizures, parasomnias, limb movements) Sleep study to be performed: Home Sleep Apnea Test (HSAT) Special instructions: None-follow laboratory protocol Everette Christianson RPSGT,RST Sleep Medicine Staff Note: I have read the above protocol, edited as needed, and agree to the plan. Aaron Elliott III, PhD 12:32 PM, 09/24/2021 * Yadira Maurer - 09/23/2021 11:13 AM EDT September 23, 2021 An order has been received for Home Sleep Apnea Test (HSAT) from linda Hicks. [facility] Staff. Visit prep complete. Comments :No The sleep study is scheduled for 7*6. Insurance: Payor: [employer] / Plan: [facility] CHOICE PLUS / Product Type: HMO / Payor/Plan Subscr Sex Relation Sub. Ins. ID Effective Group Num 1. [facility] DONNELL ADAMS 1975 Male Self [id number] 03/31/21 [id number] [id number] Yadira Maurer documented in this encounter[facility] History of Present illness Narrative* Amber Prescott RN - 09/13/2021 4:16 PM EDT Ability to learn: Alert and oriented Education topic: Aerochamber Method of learning: Demonstration-Hands on Learning Follow up: Complete - No need for follow-up * Amber Prescott RN - 09/13/2021 4:14 PM EDT Patient denies allergy to pneumovax See Immunization Form in EpicCare for details of immunizations given today. Amber Prescott RN * Naun Nuñez MD - 09/13/2021 2:52 PM EDT This is a self-referral for an allergy and immunology evaluation. Donnell Adams is a 46 year old male who presents for further evaluation of asthma. He has a history of asthma since childhood. He also has been smoking cigarettes since he was 15 years old. Up untilrecently he was smoking 2 packs/day. More recently he has cut back to 1/2 pack/day. He is taking Chantix. Respiratory symptoms include coughing, wheezing, chest tightness and shortness of breath. He was using albuterol 2-3 times per day for acute symptoms. Recently, his primary care provider prescribed Symbicort 160-4.52 puffs twice daily and DuoNeb 4 times daily. 1 month ago, he developed difficulty breathing while at work. He was transported by EMS to the emergency room. Wheezing was noted on physical exam. He was treated with albuterol and ipratropium nebulized and prednisone. Denies additional treatment with systemic corticosteroids or emergency room visits for respiratory symptoms in the past year. No prior hospitalizations for respiratory symptoms. Symptoms are worse at work. 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 Additional triggers include physical activity, upper respiratory infection and hot environments. He denies significant nasal and ocular symptoms outside of acute infections. Denies a history of nasal trauma or nasal polyposis. No prior imaging of the sinuses. He was on subcutaneous allergy immunotherapy for several years as a child with improvement in his symptoms. Denies systemic reactions to immunotherapy. Denies use of allergy medications including antihistamines and nasal sprays. History of adverse reaction to penicillin as a child. He does not know any details regarding the reaction. He believes he has subsequently taken amoxicillin and tolerated this without adverse reaction. He denies snoring. He complains of daytime fatigue. Denies significant GERD symptoms. REVIEW OF SYSTEMS: SINUSITIS: The patient does not suffer from frequent sinopulmonary infections. ASTHMA: See [place] ECZEMA: The patient has no history of eczema. URTICARIA:The patient does not have a history of urticaria and/or angioedema. GERD: The patient does not have a history of GERD. INSECT STING: The patient does not have a history of systemic reaction to insect sting. FOOD ALLERGY:The patient denies history of food allergy. LATEX: The patient does not have a history of adverse reaction to latex. All other review of systems negative except for those listed above. PAST MEDICAL HISTORY Diagnosis Date Asthma COPD (chronic obstructive pulmonary disease) (HCC) Epilepsy (HCC) not on medications Morbid obesity (HCC) Tobacco use Partial nephrectomy for renal mass MEDICATIONS: budesonide-formoterol (SYMBICORT) 160-4.5 mcg/actuation inhaler Inhale 2 Puffs as instructed twice daily. ipratropium-albuterol (DUONEB) 0.5 mg-3 mg(2.5 mg base)/3 mL nebu 3 mL every 4 hours while awake. varenicline (CHANTIX) 1 mg tablet Take 0.5 mg by mouth twice daily. albuterol HFA (PROVENTIL HFA, VENTOLIN HFA) 90 mcg/actuation inhaler Inhale 2-4 Puffs as instructedevery 2 hours as needed for wheezing/shortness of breath. albuterol HFA (PROVENTIL HFA, VENTOLIN HFA) 90 mcg/actuation inhaler Inhale 2 Puffs as instructed every 6 hours. albuterol 90 mcg/actuation aero Inhale 1-2 Puffs as instructed four times daily as needed (Wheezingand shortness of Breath). ALLERGIES: Allergies As of Date: 09/13/2021 Allergen Noted Reaction PENICILLINS 10/16/2011 Unknown Fully Assessed 09/13/2021 PAST SURGICAL HISTORY Procedure Laterality Date NEPHRECTOMY PARTIAL Right 01/29/2016 stage 1-per patient, took oral medication. ORTHOPEDICS SURGERY HX right shoulder PAST SURGICAL HISTORY OF 2019 removed mass left testicle-benign FAMILY HISTORY: Allergic rhinitis:no. Asthma: no. Eczema: no. Cystic fibrosis: no. Immunodeficiency: no. SOCIAL HISTORY: Employer And Job Title: None on file Years Of Education Completed: Not specified Marital Status: Single Social History Tobacco Use Smoking status: Current Every Day Smoker Packs/day: 0.50 Years: 25.00 Pack years: 12.5 Types: Cigarettes Smokeless tobacco: Never Used Tobacco comment: Was smoking 2 ppd, now smoking 0.50 ppd. ENVIRONMENTAL HISTORY: Lives in a apartment Age of home: unknown years Heating: gas Woodburning fireplace in the home: no Air conditioning: Central air Basement: No basement Paul: Qsoi-kx-wjot carpeting Dust mite controls: Dust mite controls are not in place. Pets in the home: 1 dogs Outdoor animals: There are no outdoor animals Tobacco smoke: Exposure in the home. Physical Exam: Body mass index is 46.84 kg/m . GENERAL APPEARANCE:Well appearing, alert, in no acute distress, well-hydrated, well nourished. Obese HEENT: NCAT. EYES: conjunctiva and sclera normal. EARS: External ears normal. Canals clear. TM's normal. NOSE/SINUS: mild edema of the nasal mucosa with scant clear secretions bilaterally THROAT: no erythema NECK:neck supple, no adenopathy HEART:RRR with normal S1 and S2 ,no murmurs, no gallops, no rubs LUNGS: clear to auscultation bilaterally, no wheezes, rales or rhonchi ABDOMEN:soft, nontender, nondistended, without organomegaly or palpable masses EXTREMITIES:Extremities normal, No deformities, No skin discoloration and No edema SKIN: Skin color, texture, turgor normal. No rashes or lesions. ALLERGY SKIN TESTS:Deferred due to patient preference/cost concerns. ASSESSMENT/PLAN: 1.) Severe persistent asthma, possible COPD: Continue Symbicort 160-4.5 2 puffs twice daily. Use w/spacer and rinse mouth after use. Change use of DuoNeb to as needed. He may use albuterol HFA inhaler with spacer 2 puffs or DuoNeb every 4-6 hours as needed. AeroChamber spacer was provided at today's visit and proper use was reviewed with the patient. The Pneumovax was administered at today's visit He should continue to receive an annual influenza vaccine. Spirometry pre and postbronchodilator, lung volumes and diffusion capacity will be obtained. Depending on clinical course and test results, referral to pulmonary may be warranted. Depending on patient preference, allergy skin tests may be completed to inhalant allergens at a future visit to evaluate for possible environmental triggers to his respiratory symptoms. 2.) Tobacco use disorder: Smoking cessation was strongly recommended. 3.) Morbid obesity and daytime fatigue: HSAT will be obtained to screen for possible obstructive sleep apnea 4.) History of penicillin allergy: Although patient reports he may have subsequently taken amoxicillin and tolerated this without adverse reaction, we were unable to verify this with the patient's pharmacy. Allergy skin tests may be completed to penicillin and Pre-Pen at a future visit. 5.) Discussed medication dosage, usage, side effects, and goals of treatment in detail. 6.) Patient will be contacted with the results of the pulmonary function tests and further recommendations regarding follow-up will be made at that time- patient will return sooner should new symptoms or problems arise. Naun Nuñez MD documented in this encounterTri[facility] Instructions* Patient Instructions* Naun Nuñez MD - 09/13/2021 3:57 PM EDT Use Symbicort 2 puffs twice a day every day on a regular basis even when you are feeling well. Use with spacer and rinse mouth out after use. Use albuterol HFA inhaler with spacer 2 puffs or DuoNeb every 4-6 hours as needed for cough, wheezing, chest tightness or shortness of breath. You will be scheduled for pulmonary function tests. SMOKING CESSATION Stopping smoking is one of the most important things you can do to protect your current and future health, as well as that of your family. It is an potent risk factor for the future development of coronary artery disease and heart attacks. Smoking is both an addiction and a learned behavior. The nicotine withdrawal takes anywhere from 2-4 weeks and results in symptoms such as irritability, fatigue, insomnia, coughing, dizziness, poor concentration, hunger and cigarette cravings. After the nicotine withdrawal period, the learned linkage between certain acts or situations and cigarette use remain. Strategies to deal with these must be developed along with new behaviors to ensure successful smoking cessation. RESOURCES [facility] Smoking Cessation Appointment Line [facility] Treatment [facility] [phone]. [place] Tobacco Quit line: National Cancer [place] at http://www.smokefree.gov [place] [employer] at http://www.lungusa.org [place] [employer] Society at http://www.cancer.org STRATEGIES TOWARD SMOKING CESSATION - Make a list of the reasons why you want to quit, plus the benefits to be gained, and compare themto the reasons why you should continue to smoke. - Pick a specific quit date. - If you are interested in using nicotine patches or gum to assist with the nicotine withdrawal, let your doctor know. - Inform friends, family, and co-workers that you are quitting and when your quit date is. Ask for their understanding and support. - Prepare your environment by removing all cigarettes prior to your quit date. - Prior to your quit date, avoid smoking in places where you spend a lot of time (such as the house, work, car). - From previous quit attempts, identify what helped you to stop smoking. - From previous quit attempts, identify what triggered relapse. How can you avoid that again? - What things (situations, emotions) do you anticipate will be most challenging, especially in the first few weeks, to your quitting effort? - What can you do to address these challenges? - Avoid (or limit) alcohol consumption during the quitting process. - If your spouse or close coworker currently smokes, consider quitting together or at the very least, develop specific plans to maintain your cigarette abstinence while in the home or at work. - Take each day, each hour, each craving, one at a time. Every step or action you take toward smoking cessation is a success. The only failure is the failure to try. - The health of you and your family is worth the effort. STOP SMOKING CHECK LIST Preparing to Quit: ___ Make a personal pact with yourself to quit. ___ Pick a date for quitting completely. (My date to quit is ____.) ___ Write down on a card the three most important reasons for quitting. Carry the card with you from now on. Look at it several times a day. ___ Prior to quitting, eliminate smoking completely in 2 or 3 of your high risk situations. ___ Reduce consumption to one pack per day or less. ___ Change to a less desirable brand of cigarettes. ___ Discard your precision lens grinder apprentice. Use matches. Carry your cigarettes in a different place. ___ Spend a little time each day picturing in your mind stressful events occurring in the future and you not smoking. Actual Quitting: The First Two Weeks ___ Get rid of all cigarettes. Put away all smoking related objects such as ashtrays. Ask the people you live with not to smoke in your presence for the first two weeks. ___ Spend as much time as possible with non-smoking people. ___ Keep busy, especially on evenings and weekends. ___ Avoid high risk situations (large parties, bars, etc.). ___ Spend time in places that prohibit or discourage smoking (e.g., theaters, libraries). ___ Drink plenty of fluids. ___ Don't substitute food or sugar based products for cigarettes. Use approved substitutions. (ice water, high bulk/low calorie foods, sugarless gum, mouthwash, brushing teeth) ___ Begin or increase a regular exercise program. ___ When experiencing withdrawal effects: 1. Remind yourself why you are quitting (from your card). 2. Remind yourself that whatever discomfort you are experiencing is only a tiny fraction of the probable discomfort associated with continued smoking. 3. Practice deep breathing or other relaxation techniques. ___ Remind yourself that you can free yourself from this unhealthy, expensive, messy habit and become a non-smoker. Maintenance of Quitting: After two weeks ___ Remind yourself that the desire to smoke is linked to many situations, people and emotional stress. ___ When you do have a desire to smoke, remember that it only lasts a few seconds: distract yourself and leave the situation if necessary. ___ After each desire to smoke has passed, pat yourself on the back, you have just made progress inbreaking the habit forever. ___ Save the money on wasted on cigarettes in a special fund and buy yourself something nice. Maintenance of Quitting: After Two Months ___ Be particularly vigilant when unusual life events occur. (weddings, holidays, vacations). ___ Be particularly vigilant when stressful life events occur (relationship, financial or work problems). ___ Remind yourself regularly that not smoking is completely within your personal control. ___ Never lull yourself into thinking you are out of danger and you can safely have a cigarette or two. ___ If you do slip and have one or more cigarettes, do not conclude that you have failed at quitting. Return to complete abstinence immediately and learn from your experience. ___ If you have gained significant weight since quitting, now is the time to do something about it. ___ Each time you see a cigarettes advertisement, remind yourself of why you quit. Also remember that a powerful industry spends billions of dollars each year trying to get people like yourself re-hooked . documented in this encounterTri[facility] Nurse Note* Ofelia Myers RN - 09/13/2021 2:58 PM EDT Patient c/o sob and wheezing for years. He was at work and had a flare up-work sent him to [facility] 5[facility]16. He started symbicort, duoneds, and abuterol prn about a month ago-feels like it helps. Penicillin allergy listed-reacted as a child per patient. documented in this encounterTri[facility] Hospital Discharge instructions Patient Education 07/27/2021 01:10:04 Understanding Rotator Cuff Tendonitis Understanding Rotator Cuff Tendonitis Tendons are tough tissues that connect muscles to bone. A group of 4 muscles and their tendons forma cuff around the head of the upper arm bone. This is called the rotator cuff. It connects the upper arm to the shoulder blade. It gives the shoulder joint stability and strength. If tendons are injured or strained, they may become irritated and swollen (inflamed). This is called tendonitis. Rotator cuff tendonitis may cause shoulder pain and loss of function. What causes rotator cuff tendonitis? Tendonitis results when the rotator cuff tendons are injured or overworked. The most common cause of injury is repetitive overhead activities. These can be work-related activities such as reaching, pushing, or lifting. Or they can be sports-related activities such as throwing, swimming, or lifting weights. Symptoms of rotator cuff tendonitis Pain on the side of the upper arm is the most common symptom. Pain may get worse with overhead movements or when you raise the arm above shoulder level. It may also hurt to lie on the shoulder at night. Treatment for rotator cuff tendonitis Treatment may include the following: Active rest. This lets the rotator cuff heal. Active rest means using your arm and shoulder, but avoiding activities that cause pain, such as reaching overhead or sleeping on the shoulder. Cold packs. Putting ice packs on the shoulder helps reduce swelling and relieve pain. Pain medicines. Prescription or ipsd-uvx-gckyadw pain medicines can help relieve pain and swelling. Arm and shoulder exercises. These help keep the shoulder joint mobile as it heals. They also help improve the strength of muscles around the joint. Possible complications It might be tempting to stop using your shoulder completely to avoid pain. But doing so may lead toa condition called frozen shoulder. To help prevent this, following instructions you are given for active rest and for doing exercises to help your shoulder heal. When to call your healthcare provider Call your healthcare provider right away if you have any of these: Fever of 100.4 F (38 C) or higher, or as directed Symptoms that don t get better, or get worse New symptoms [id number] [employer]. [address] [place] [address]67. All rights reserved. This information is not intended as a substitute for professional medical care. Always follow yourhealthcare professional's instructions. Follow Up Care 07/26/2021 23:53:57 With:ANNI DURBIN MD, Orthopedic Address: [address] [place] [address] [place] [address]- When:2-4 days [facility] Evaluation + Plan note No data available for this section [facility] Evaluation + Plan note Future Appointments Appointment Date:08/20/2021 10:00:00 AM Scheduled Provider: Location:[facility] Appointment Type:MRI Spine Cervical w/o Contrast Appointment Date:08/21/2021 08:50:00 AM Scheduled Provider:OTONIEL GOLDEN Location:[facility] Appointment Type:PC OV Follow Up Future Scheduled Tests Radiology* XR Chest 2 Views (PA & Lateral) 08/14/21 * MRI Spine Cervical w/o Contrast 08/20/21 [facility] Evaluation + Plan note Future Appointments Appointment Date:11/20/2021 08:50:00 AM Scheduled Provider:OTONIEL GOLDEN Location:[facility] Appointment Type:PC OV Follow Up Future Scheduled Tests Radiology* XR Chest 2 Views (PA & Lateral) 08/14/21 [facility] Evaluation + Plan note Future Appointments Appointment Date:12/27/2021 03:00:00 PM Scheduled Provider:OTONIEL GOLDEN Location:[facility] Appointment Type:PC OV Follow Up Future Scheduled Tests Radiology* XR Chest 2 Views (PA & Lateral) 08/14/21 [facility] Code On Network Codingaluation + Plan note Future Appointments Appointment Date:11/15/2022 09:00:00 AM Scheduled Provider:LARISSA NICHOLE Location:[facility] Appointment Type:[facility] Future Scheduled Tests Radiology* XR Chest 2 Views (PA & Lateral) 08/14/21 [facility] Code On Network Codingaluation + Plan note Future Appointments Appointment Date:11/15/2022 09:00:00 AM Scheduled Provider:LARISSA NICHOLE Location:[facility] Appointment Type:[facility] Code On Network Codingaluation + Plan note Future Appointments Appointment Date:11/01/2022 08:00:00 PM Scheduled Provider: Location:[facility] Appointment Type: [facility] Study Appointment Date:11/15/2022 09:00:00 AM Scheduled Provider:LARISSA NICHOLE Location:[facility] Appointment Type:[facility] Code On Network Codingaluation + Plan note Future Appointments Appointment Date:06/13/2023 09:00:00 AM Scheduled Provider:LARISSA NICHOLE Location:[facility] Appointment Type:[facility] evaluation note* Diagnosis Wheezing- Primary documented in this encounter [facility]* Diagnosis Severe persistent asthma without complication- Primary Cough Dyspnea, unspecified type Need for vaccination Need for prophylactic vaccination and inoculation against unspecified single disease Morbid obesity (HCC) Morbid obesity Fjj-phjc-xloztll adverse effect of medication, initial encounter documented in this encounter [facility]* Diagnosis Wheezing documented in this encounter [facility]* Diagnosis Cough Dyspnea, unspecified type [facility] Diagnosis Severe persistent asthma without complication- Primary [facility] Diagnosis Iliotibial band tendinitis of right side- Primary Trochanteric bursitis of right hip Enthesopathy of hip region [facility] Diagnosis Severe persistent asthma without complication [facility] Diagnosis Severe persistent asthma with acute exacerbation- Primary Unspecified asthma, with exacerbation Tobacco use disorder Morbid obesity (HCC) Morbid obesity [facility] Diagnosis Allergy, initial encounter- Primary Severe persistent asthma with acute exacerbation Unspecified asthma, with exacerbation Tobacco use disorder Dyspnea and respiratory abnormalities Other dyspnea and respiratory abnormality BMI 45.0-49.9, adult (HCC) Body Mass Index 45.0-49.9, adult documented in this encounter [facility] Diagnosis Severe persistent asthma without complication- Primary Eosinophilic asthma Pulmonary eosinophilia Allergic rhinitis due to dust mite Seasonal allergic rhinitis due to pollen Allergic rhinitis due to cats Allergic rhinitis due to animal (cat) (dog) hair and dander Tobacco use disorder documented in this [facility] Diagnosis Severe persistent asthma without complication- Primary Eosinophilic asthma Pulmonary eosinophilia documented in this [facility] Diagnosis Severe persistent asthma with acute exacerbation- Primary Unspecified asthma, with exacerbation [facility] Diagnosis Current every day smoker- Primary Tobacco use disorder Dyspnea and respiratory abnormalities Other dyspnea and respiratory abnormality Severe persistent asthma with acute exacerbation Unspecified asthma, with exacerbation Allergy, initial encounter BMI 45.0-49.9, adult (HCC) Body Mass Index 45.0-49.9, adult documented in this encounter [facility] Diagnosis Severe persistent asthma with acute exacerbation- Primary Unspecified asthma, with exacerbation [facility] Diagnosis Allergy, initial encounter- Primary [facility] Diagnosis Dyspnea and respiratory abnormalities Other dyspnea and respiratory abnormality [facility] Diagnosis Severe persistent asthma without complication Eosinophilic asthma Pulmonary eosinophilia [facility] Diagnosis Severe persistent asthma without complication- Primary Eosinophilic asthma Pulmonary eosinophilia Allergic rhinitis due to dust mite Seasonal allergic rhinitis due to pollen Allergic rhinitis due to cats Allergic rhinitis due to animal (cat) (dog) hair and dander Tobacco use disorder [facility] Diagnosis Eosinophilic asthma- Primary Pulmonary eosinophilia [facility] Diagnosis Eosinophilic asthma- Primary Pulmonary eosinophilia Severe persistent asthma without complication Allergic rhinitis due to dust mite Seasonal allergic rhinitis due to pollen Allergic rhinitis due to cats Allergic rhinitis due to animal (cat) (dog) hair and dander Tobacco use disorder documented [facility] this [facility] Diagnosis Asthma with chronic obstructive pulmonary disease (COPD) ([facility])- Primary Chronic obstructive asthma, unspecified Smoker Tobacco use disorder Allergy, initial encounter BMI 45.0-49.9, adult ([facility]) Body Mass Index 45.0-49.9, adult [facility] No data available for this section [facility] Progress note No data available for this section [facility] Reason for referral (narrative)* Outpatient Procedure (Routine) - Pending Review Specialty Diagnoses / Procedures Referred By Kisha flores Referred [facility] Diagnoses Wheezing Procedures NITRIC OXIDE, EXHALED NITRIC OXIDE GAS DETERMINATION Naun Nuñez MD [address] [address] [place] [address] Referral ID Status Reason Start Date Expiration Date Visits Requested Visits Authorized [id number] Pending Review Auto-Generat ed Referral 08/21/2021 09/20/2022 1 1 * Outpatient Procedure (Routine) - Pending Review Specialty Diagnoses / Procedures Referred By Kisha flores Referred To [facility] Diagnoses Wheezing Procedures SPIROMETRY - BASELINE AND POST DILATOR BRNCDILAT RSPSE SPMTRY PRE&POST-BRNCDILAT ADMN Naun Nuñez MD [address] [address] Respiratory [place] [id number] Referral ID Status Reason Start Date Expiration Date Visits Requested Visits Authorized [id number] Pending Review Auto-Generat ed Referral 08/21/2021 09/20/2022 1 1 [facility] for referral (narrative)* Diagnostic Procedure Only (Routine) - Pending Review Specialty Diagnoses / Procedures Referred By Contac t Referred To [facility] Diagnoses Dyspnea, unspecified type Procedures HOME SLEEP APNEA TEST (HSAT) SLEEP STD AIRFLOW HRT RATE&O2 SAT EFFORT UNATT Naun Nuñez MD [address] [place] [address] [address] Referral ID Status Reason Start Date Expiration Date Visits Requested Visits Authorized [id number] Pending Review Auto-Generat ed Referral 09/13/2021 09/13/2022 1 1 * Outpatient Procedure (Routine) - Pending Review Specialty Diagnoses / Procedures Referred By Contac t Referred To [facility] Diagnoses Cough Dyspnea, unspecified type Procedures LUNG DIFFUSION CAPACITY (DLCO) DIFFUSING CAPACITY Naun Nuñez MD [address] [place] [address] [address] Referral ID Status Reason Start Date Expiration Date Visits Requested Visits Authorized [id number] Pending Review Auto-Generat ed Referral 09/13/2021 10/13/2022 1 1 * Outpatient Procedure (Routine) - Pending Review Specialty Diagnoses / Procedures Referred By Contac t Referred To [facility] Diagnoses Cough Dyspnea, unspecified type Procedures LUNG VOLUMES Naun Nuñez MD [address] [place] [phone] [address] [address] Referral ID Status Reason Start Date Expiration Date Visits Requested Visits Authorized [id number] Pending Review Auto-Generat ed Referral 09/13/2021 10/13/2022 1 1 * Outpatient Procedure (Routine) - Pending Review Specialty Diagnoses / Procedures Referred By Contac t Referred To [facility] Diagnoses Cough Dyspnea, unspecified type Procedures SPIROMETRY - BASELINE AND POST DILATOR BRNCDILAT RSPSE SPMTRY PRE&POST-BRNCDILAT Naun Robins MD [address] [address] Respiratory [place] [address] [place] [address] Referral ID Status Reason Start Date Expiration Date Visits Requested Visits Authorized [id number] Pending Review Auto-Generat ed Referral 09/13/2021 10/13/2022 1 1 [facility] for referral (narrative)* Outpatient Procedure (Routine) - Authorized Specialty Diagnoses / Procedures Referred By Contac t Referred To [facility] Diagnoses Severe persistent asthma without complication Procedures SPIROMETRY - BASELINE AND POST DILATOR BRNCDILAT RSPSE SPMTRY PRE&POST-BRNCDILAT Naun Robins MD [address] [place] [address] [address] Referral ID Status Reason Start Date Expiration Date Visits Requested Visits Authorized [id number] Authorized Auto-Generat ed Referral 2 11/24/2022 1 1 [facility] for referral (narrative)* Outpatient Procedure (Routine) - Authorized Specialty Diagnoses / Procedures Referred By Contac t Referred To [facility] Diagnoses Severe persistent asthma with acute exacerbation Procedures SIX MINUTE WALK CARDI[place]MONARY [place] [address] [place] [address] [place] [address] [place] [address] Referral ID Status Reason Start Date Expiration Date Visits Requested Visits Authorized [id number] Authorized Auto-Generat ed Referral 2 03/29/2023 1 1 * Outpatient Procedure (Routine) - Pending Review Specialty Diagnoses / Procedures Referred By Contac t Referred [facility] Diagnoses Severe persistent asthma with acute exacerbation Procedures SPIROMETRY WITH DILATOR IF OBSTRUCTED BRNCDILAT RSPSE SPMTRY PRE&[place] [address] [place] [address] [place] [address] [place] [address] Referral ID Status Reason Start Date Expiration Date Visits Requested Visits Authorized [id number] Pending Review Auto-Generat ed Referral 05/28/2022 03/29/2023 1 1 [facility] for referral (narrative)* Outpatient Procedure (Routine) - Pending Review Specialty Diagnoses / Procedures Referred By Contac t Referred To [facility] Diagnoses Severe persistent asthma without complication Eosinophilic asthma Procedures SPIROMETRY - BASELINE AND POST DILATOR BRNCDILAT RSPSE SPMTRY PRE&POST-BRNCDILAT ADMNaun Gonzales MD [address] [place] [address] [place] [address] [place] [phone] Referral ID Status Reason Start Date Expiration Date Visits Requested Visits Authorized [id number] Pending Review Auto-Generat ed Referral 08/06/2022 05/08/2023 1 1 [facility] for referral (narrative)* Outpatient Procedure (Routine) - Authorized Specialty Diagnoses / Procedures Referred By Contac t Referred [facility] Diagnoses Dyspnea and respiratory abnormalities Procedures ECHO ECHO TTHRC R-T 2D W/WOM-MODE COMPL SPEC&[place] [address] [place] [address] [facility] [address] [address] Referral ID Status Reason Start Date Expiration Date Visits Requested Visits Authorized [id number] Authorized Auto-Generat ed Referral 05/31/2022 03/30/2023 1 1 [facility] for referral (narrative)* Outpatient Procedure (Routine) - Authorized Specialty Diagnoses / Procedures Referred By Contac t Referred [facility] Diagnoses Eosinophilic asthma Procedures NITRIC OXIDE, EXHALED NITRIC OXIDE GAS DETERMINATION Naun Nuñez MD [address] [place] [address] Respiratory [place] [phone] Referral ID Status Reason Start Date Expiration Date Visits Requested Visits Authorized [id number] Authorized Auto-Generat ed Referral 3 12/14/2023 1 1 * Outpatient Procedure (Routine) - Authorized Specialty Diagnoses / Procedures Referred By Contac t Referred To Contact [facility] Diagnoses Eosinophilic asthma Procedures SPIROMETRY - BASELINE AND POST DILATOR BRNCDILAT RSPSE SPMTRY PRE&POST-BRNCDILAT ADMNaun Gonzales MD [address] [place] [address] [place] [phone] Referral ID Status Reason Start Date Expiration Date Visits Requested Visits Authorized [id number] Authorized Auto-Generat ed Referral 3 12/14/2023 1 1 [facility] for visit Narrative* Outpatient Procedure (Routine) - Closed Specialty Diagnoses / Procedures Referred By Contac t Referred To Contact [facility] Diagnoses Severe persistent asthma with acute exacerbation Procedures SIX MINUTE WALK CARDIOP[place]MONARY [place] [address] [place] [address] Respiratory [place] [phone] Referral ID Status Reason Start Date Expiration Date V isits Requested Visits Authorized [id number] Closed Auto-Generate d Referral 02/27/2022 03/29/2023 1 1 [facility]* Outpatient Procedure (Routine) - Closed Specialty Diagnoses / Procedures Referred By Kisha t Referred To [facility] Diagnoses Dyspnea and respiratory abnormalities Procedures ECHO ECHO TTHRC R-T 2D W/WOM-MODE COMPL SPEC&[place] [address] [place] [address] [facility] [place] [address] [place] [address] Referral ID Status Reason Start Date Expiration Date V isits Requested Visits Authorized [id number] Closed Auto-Generate d Referral 05/31/2022 03/30/2023 1 1 [facility] Advance Directives No Advanced Directives Records FoundDocuments on File Type Date Recorded 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 Advance Directive(s) 08/13/2021 12:49 AM Documents on File Type Date Recorded 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 Advance Directive(s) 10/09/2021 1:40 AM Advance Directive(s) 08/13/2021 12:49 AM Documents on File Type Date Recorded 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 Advance Directive(s) 10/09/2021 1:40 AM Advance Directive(s) 08/13/2021 12:49 AM Health Concerns Infection Onset Date Last Indicated Resolved Time COVID-19 Rule-Out 10/09/2021 10/09/2021 10/09/2021 2:05 AM EDT Summary Purpose Family History No Family History Records Found No data available for this section No Family History Records FoundNo Family History Records Found No data available for this section No Family History Records Found Reason for Referral Specialty Diagnoses / Procedures Referred By Kisha flores Referred To Contact Naun Nuñez MD [address] [place] [address] Referral ID Status Reason Start Date Expiration Date Visits Re quested Visits Authorized [id number] Closed 1 1 Specialty Diagnoses / Procedures Referred By Kisha t Referred To Contact [facility] Diagnoses Severe persistent asthma with acute exacerbation Tobacco use disorder Procedures CONSULT TO PULM/CRITICAL CARE OFFICE/OUTPATIENT NEW HIGH MDM 60-74 MINUTES Naun Nuñez MD [address] [address] Referral ID Status Reason Start Date Expiration Date Visits Requested Visits Authorized [id number] Pending Review PCP Requested Referral 01/31/2022 01/31/2023 1 1 Medications Administered Section Inactive Administered Medications - up to 3 most recent administrations Medication Order MAR Action Action Date Dose Rate Site perflutren lipid microspheres 1.3 mL in NaCl (PF) 0.9% 10 mL injection (DEFINITY) INTRAVENOUS, DIRECTED NEEDED, 1 dose, Starting on Fri05/31/22 at 1336, Until Fri06/11/22 at 0915, Per Protocol - for use during ECHO procedure only, If no IV access, insert saline lock prior to administering contrast. Discontinue saline lock post exam. If patient has central line or IVAD, may access for administration according to line specific nursing protocol. Once exam is complete, flush line and de-access per line specific nursing protocol.Dilute 1.3 ml of Definity with 8.7 ml of preservative-free saline. Given 06/11/2022 9:15 AM EDT 3 mL sodium chloride 0.9 % (flush) 10 mL (BD POSIFLUSH) 10 mL, INTRAVENOUS, DIRECTED NEEDED, 1 dose, Starting on Fri05/31/22 at 1336, Until Fri06/11/22 at 0916, Per Protocol - for use during ECHO procedure only, no IV access, insert saline lock prior to administering contrast. Discontinue saline lock post exam. If patient has central line or IVAD, may access for administration according to line specific nursing protocol. Once exam is complete, flush line and de-access per line specific nursing protocol. Given 06/11/2022 9:16 AM EDT 10 mL Additional Source Comments Care Team (unrecognized sect ion and content) Care Team Personnel Name: LARISSA NICHOLE APRN-PHARMACY INTERN Position: P4 Advanced Adjunct Sociology Professor Member Role: Primary Care Physician Address: Address: [address] [place] [address] [place] [address]- Care Team Related Persons Name: LAYA PAULA Address: Home [address] [place], [place] [id number] [place] Name: MAMI KHAN Address: Home [address] [place], [place] [id number] [place] Address: Temporary [address] [place], [place] [id number] Care Team Personnel Name: OTONIEL GOLDEN Position: P4 Advanced Adjunct Sociology Professor Member Role: Primary Care Physician Address: Address: [address] [place] [id number]- [place] Care Team Related Persons Name: PAULA ASIF Address: Home [address] [place], [place] [id number] [place] Name: MAMI KHAN Address: Home [address] [place], [place] [id number] Address: Temporary [address] [place], [place] [id number] Director Of Medical Review Relationship Specialty Start Date End Date Otoniel Golden APRN.CNP [address] [place] [address] PCP - General Family Practice 09/13/21 Personnel Name: OTONIEL GOLDEN Address: [address] [place] [address] Source Comments (unrecognize d section and content) In the event this informatio n is protected by the Federal Confidentiality of Alcohol and Drug Abuse Patient Records regulations: The Federal rules restrict any use of the information to criminally investigate or prosecute any alcohol or drug abuse patient.[facility] the event this information is protected by the Federal Confidentiality of Alcohol and Drug Abuse Patient Records regulations: The Federal rules restrict any use of the information to criminally investigate or prosecute any alcohol or drug abuse patient.[facility] the event this information is protected by the Federal Confidentiality of Alcohol and Drug Abuse Patient Records regulations: The Federal rules restrict any use of the information to criminally investigate or prosecute any alcohol or drug abuse patient.[facility] the event this information is protected by the Federal Confidentiality of Alcohol and Drug Abuse Patient Records regulations: The Federal rules restrict any use of the information to criminally investigate or prosecute any alcohol or drug abuse patient.[facility] the event this information is protected by the Federal Confidentiality of Alcohol and Drug Abuse Patient Records regulations: The Federal rules restrict any use of the information to criminally investigate or prosecute any alcohol or drug abuse patient.[facility] the event this information is protected by the Federal Confidentiality of Alcohol and Drug Abuse Patient Records regulations: The Federal rules restrict any use of the information to criminally investigate or prosecute any alcohol or drug abuse patient.[facility] the event this information is protected by the Federal Confidentiality of Alcohol and Drug Abuse Patient Records regulations: The Federal rules restrict any use of the information to criminally investigate or prosecute any alcohol or drug abuse patient.[facility] the event this information is protected by the Federal Confidentiality of Alcohol and Drug Abuse Patient Records regulations: The Federal rules restrict any use of the information to criminally investigate or prosecute any alcohol or drug abuse patient.[facility] the event this information is protected by the Federal Confidentiality of Alcohol and Drug Abuse Patient Records regulations: The Federal rules restrict any use of the information to criminally investigate or prosecute any alcohol or drug abuse patient.[facility] the event this information is protected by the Federal Confidentiality of Alcohol and Drug Abuse Patient Records regulations: The Federal rules restrict any use of the information to criminally investigate or prosecute any alcohol or drug abuse patient.[facility] the event this information is protected by the Federal Confidentiality of Alcohol and Drug Abuse Patient Records regulations: The Federal rules restrict any use of the information to criminally investigate or prosecute any alcohol or drug abuse patient.[facility] the event this information is protected by the Federal Confidentiality of Alcohol and Drug Abuse Patient Records regulations: The Federal rules restrict any use of the information to criminally investigate or prosecute any alcohol or drug abuse patient.[facility] the event this information is protected by the Federal Confidentiality of Alcohol and Drug Abuse Patient Records regulations: The Federal rules restrict any use of the information to criminally investigate or prosecute any alcohol or drug abuse patient.[facility] HospitalIn the event this information is protected by the Federal Confidentiality of Alcohol and Drug Abuse Patient Records regulations: The Federal rules restrict any use of the information to criminally investigate or prosecute any alcohol or drug abuse patient.[facility] HospitalIn the event this information is protected by the Federal Confidentiality of Alcohol and Drug Abuse Patient Records regulations: The Federal rules restrict any use of the information to criminally investigate or prosecute any alcohol or drug abuse patient.[facility] HospitalIn the event this information is protected by the Federal Confidentiality of Alcohol and Drug Abuse Patient Records regulations: The Federal rules restrict any use of the information to criminally investigate or prosecute any alcohol or drug abuse patient.[facility] HospitalIn the event this information is protected by the Federal Confidentiality of Alcohol and Drug Abuse Patient Records regulations: The Federal rules restrict any use of the information to criminally investigate or prosecute any alcohol or drug abuse patient.[facility] HospitalIn the event this information is protected by the Federal Confidentiality of Alcohol and Drug Abuse Patient Records regulations: The Federal rules restrict any use of the information to criminally investigate or prosecute any alcohol or drug abuse patient.[facility] HospitalIn the event this information is protected by the Federal Confidentiality of Alcohol and Drug Abuse Patient Records regulations: The Federal rules restrict any use of the information to criminally investigate or prosecute any alcohol or drug abuse patient.[facility] HospitalIn the event this information is protected by the Federal Confidentiality of Alcohol and Drug Abuse Patient Records regulations: The Federal rules restrict any use of the information to criminally investigate or prosecute any alcohol or drug abuse patient.[facility] HospitalIn the event this information is protected by the Federal Confidentiality of Alcohol and Drug Abuse Patient Records regulations: The Federal rules restrict any use of the information to criminally investigate or prosecute any alcohol or drug abuse patient.[facility] HospitalIn the event this information is protected by the Federal Confidentiality of Alcohol and Drug Abuse Patient Records regulations: The Federal rules restrict any use of the information to criminally investigate or prosecute any alcohol or drug abuse patient.[facility] HospitalIn the event this information is protected by the Federal Confidentiality of Alcohol and Drug Abuse Patient Records regulations: The Federal rules restrict any use of the information to criminally investigate or prosecute any alcohol or drug abuse patient.[facility] HospitalIn the event this information is protected by the Federal Confidentiality of Alcohol and Drug Abuse Patient Records regulations: The Federal rules restrict any use of the information to criminally investigate or prosecute any alcohol or drug abuse patient.[facility] HospitalIn the event this information is protected by the Federal Confidentiality of Alcohol and Drug Abuse Patient Records regulations: The Federal rules restrict any use of the information to criminally investigate or prosecute any alcohol or drug abuse patient.[facility] HospitalIn the event this information is protected by the Federal Confidentiality of Alcohol and Drug Abuse Patient Records regulations: The Federal rules restrict any use of the information to criminally investigate or prosecute any alcohol or drug abuse patient.[facility] HospitalIn the event this information is protected by the Federal Confidentiality of Alcohol and Drug Abuse Patient Records regulations: The Federal rules restrict any use of the information to criminally investigate or prosecute any alcohol or drug abuse patient.[facility] HospitalIn the event this information is protected by the Federal Confidentiality of Alcohol and Drug Abuse Patient Records regulations: The Federal rules restrict any use of the information to criminally investigate or prosecute any alcohol or drug abuse patient.[facility] HospitalIn the event this information is protected by the Federal Confidentiality of Alcohol and Drug Abuse Patient Records regulations: The Federal rules restrict any use of the information to criminally investigate or prosecute any alcohol or drug abuse patient.[facility] HospitalIn the event this information is protected by the Federal Confidentiality of Alcohol and Drug Abuse Patient Records regulations: The Federal rules restrict any use of the information to criminally investigate or prosecute any alcohol or drug abuse patient.[facility] HospitalIn the event this information is protected by the Federal Confidentiality of Alcohol and Drug Abuse Patient Records regulations: The Federal rules restrict any use of the information to criminally investigate or prosecute any alcohol or drug abuse patient.[facility] HospitalIn the event this information is protected by the Federal Confidentiality of Alcohol and Drug Abuse Patient Records regulations: The Federal rules restrict any use of the information to criminally investigate or prosecute any alcohol or drug abuse patient.[facility] HospitalIn the event this information is protected by the Federal Confidentiality of Alcohol and Drug Abuse Patient Records regulations: The Federal rules restrict any use of the information to criminally investigate or prosecute any alcohol or drug abuse patient.[facility] Reason for Visit (unrecogniz ed section and content) Reason Comments Psg Check In (Adult) Reason Comments Spirometry Specialty Diagnoses / Procedures Referred By Contac t Referred To Contact [facility] Diagnoses Wheezing Procedures NITRIC OXIDE, EXHALED NITRIC OXIDE GAS DETERMINATION Naun Nuñez MD [address] [place] [address] Respiratory [place] [id number] Referral ID Status Reason Start Date Expiration Date V isits Requested Visits Authorized [id number] Closed Auto-Generate d Referral 08/21/2021 09/20/2022 1 1 Specialty Diagnoses / Procedures Referred By Contac t Referred To Contact [facility] Diagnoses Cough Dyspnea, unspecified type Procedures SPIROMETRY - BASELINE AND POST DILATOR BRNCDILAT RSPSE SPMTRY PRE&POST-BRNCDILAT ADMN Naun Nuñez MD [address] [place] [address] [place] [phone] Referral ID Status Reason Start Date Expiration Date V isits Requested Visits Authorized [id number] Closed Auto-Generate d Referral 09/13/2021 10/13/2022 1 1 Specialty Diagnoses / Procedures Referred By Contac t Referred To Contact [facility] Diagnoses Cough Dyspnea, unspecified type Procedures LUNG DIFFUSION CAPACITY (DLCO) DIFFUSING CAPACITY Naun Nuñez MD [address] [place] [address] [address] Referral ID Status Reason Start Date Expiration Date V isits Requested Visits Authorized [id number] Closed Auto-Generate d Referral 09/13/2021 10/13/2022 1 1 Reason Comments Results Reason Comments Appointment Reason Comments ER F/U Specialty Diagnoses / Procedures Referred By Contac t Referred To Contact Radiology / [facility] Diagnoses pain, workers comp Procedures XR GENERAL 8 Marga Marmolejo, LOCATION ANALYST.PHARMACY INTERN [address] [facility] [address] [place] [address] Radio General [facility] [address] [place] [address] Referral ID Status Reason Start Date Expiration Date Visits Requested Visits Authorized [id number] Pending Review Clearance Not Met -Financial Clearance Bypassed 11/15/2021 02/13/2022 1 1 Reason Comments New Pain Numbness Reason Comments Patient Request Specialty Diagnoses / Procedures Referred By Contac t Referred To Contact [facility] Diagnoses Severe persistent asthma without complication Procedures SPIROMETRY - BASELINE AND POST DILATOR BRNCDILAT RSPSE SPMTRY PRE&POST-BRNCDILAT ADMNaun Gonzales MD [address] [place] [address] Respiratory [place] [facility] [place] [address] Referral ID Status Reason Start Date Expiration Date V isits Requested Visits Authorized [id number] Closed Auto-Generate d Referral 01/25/2022 11/24/2022 1 1 Reason Comments Results Appointment Reason Comments Established Patient 6 month asthma f/u Reason Comments New Patient Specialty Diagnoses / Procedures Referred By Contac t Referred To Contact Pulmonary and Critical Care Medicine Diagnoses Severe persistent asthma with acute exacerbation Tobacco use disorder Procedures CONSULT TO PULM/CRITICAL CARE OFFICE/OUTPATIENT NEW HIGH MDM 60-74 MINUTES Naun Nuñez MD [address] [place] [address] Referral ID Status Reason Start Date Expiration Date Visits Requested Visits Authorized [id number] Pending Review PCP Requested Referral 01/31/2022 01/31/2023 1 1 Reason Comments Established Patient Follow up asthma Reason Comments [place] [facility] [place] Enrollment Form Reason Comments Smoking Cessation Reason Onset Date Comments SPP Inflammatory Conditions - Treatment Referral 06/03/2022 [employer] Insurance Authorization 06/03/2022 [place] submi ssion pending Reason Comments Results Specialty Diagnoses / Procedures Referred By Contac t Referred To Contact [facility] Diagnoses Severe persistent asthma without complication Eosinophilic asthma Procedures SPIROMETRY - BASELINE AND POST DILATOR BRNCDILAT RSPSE SPMTRY PRE&POST-BRNCDILAT ADMN Naun Nuñez MD [address] [place] [address] [facility] [place] [facility] [address] Referral ID Status Reason Start Date Expiration Date V isits Requested Visits Authorized [id number] Closed Auto-Generate d Referral 08/06/2022 05/08/2023 1 1 Reason Comments Asthma Reason Comments Refill Request Reason Comments dupixent start Reason Comments est patient asthma visit Care Team (unrecognized sect ion and content) Care Team Personnel Name: OTONIEL GOLDEN Position: P4 Advanced Practice Nurse Med Service: Active Provider Member Role: Primary Care Physician Address: Address: [address] [place] [address]- Care Team Related Persons Name: LAYA PAULA Address: Home [address] [phone] [place] Name: MAMI KHAN Address: Home [address] [phone] [place] Address: Temporary [address] [phone] Care Team Personnel Name: OTONIEL GOLDEN Position: P4 Advanced Practice Nurse Med Service: Active Provider Member Role: Primary Care Physician Address: Address: [address] [place] [address] [place] Care Team Related Persons Name: LAYA PAULA Address: Home [address] [place], [place] [phone] [place] Name: MAMI KHAN Address: Home [address] [place], [place] [phone] [place] Address: Temporary [address] [phone] Care Team Personnel Name: OTONIEL GOLDEN Position: P4 Advanced Practice Nurse Med Service: Active Provider Member Role: Primary Care Physician Address: Address: [address] [place] [address]- Care Team Related Persons Name: LAYA PAULA Address: Home [address] [place], [place] [phone] [place] Name: MAMI KHAN Address: Home [address], [place] [phone] [place] Address: Temporary [address] [place], [place] [id number] (unrecognized sect ion and content) No Status Records FoundNo Status Records FoundNo Status Records FoundNo Status Records Found INFORMATION SOURCE (unrecogn ized section and content) DATE CREATED AUTHOR AUTHOR'S ORGANIZ ATION 01/12/2023 [facility] DATE CREATED AUTHOR AUTHOR'S ORGANIZ ATION 04/16/2023 [facility] ([place]) DATE CREATED AUTHOR AUTHOR'S ORGANIZ ATION 04/18/2023 [facility] FOR RECORDS PERTAINING TO PATIENTS WHO ARE OR HAVE BEEN ENROLLED IN A CHEMICAL DEPENDENCY/SUBSTANCEABUSE PROGRAM, SOME INFORMATION MAY BE OMITTED. This clinical summary was aggregated from multiple sources. Caution should be exercised in using it in the provision of clinical care. This summary normalizes information from multiple sources, and as a consequence, information in this document may materially change the coding, format and clinical context of patient data. In addition, data may be omitted in some cases. CLINICAL DECISIONS SHOULD BE BASED ON THE PRIMARY CLINICAL RECORDS. [facility] [employer] [facility]. provides no warranty or guarantee of the accuracy or completeness of information in this document.
[2023-05-12 22:49] LABS: Red Blood Cells-Urine 0-5 SEEN /hpf (0-5); White Blood Cells 0-5 SEEN /hpf (0-5)
[2023-05-12 23:34] VITALS: BP 148/95; PULSE 64; RESP 18; O2SAT 97
[2023-05-12] MEDS: Valproate Sodium 1,000 MG in Dextrose 5%-Water (50mL Bag) 50 ML 50 MG IV (23:34)
[2023-05-13 00:44] VITALS: PULSE 64; RESP 12; O2SAT 99
== END 2023-05-13 00:44 | disposition home or self-care (01) ==
PROVIDERS: Emergency Provider Emergency Medicine; PCP Registered Nurse; Visit Provider Emergency Medicine
DX: G40.909 Epilepsy, unspecified, not intractable, without status epilepticus (principal); J44.9 Chronic obstructive pulmonary disease, unspecified; F17.210 Nicotine dependence, cigarettes, uncomplicated; Z79.899 Other long term (current) drug therapy; Z90.5 Acquired absence of kidney
CPT/HCPCS: 70450; 80048; 80164; 81001; 85025; 96365; 96366; 96375; 99283; A4216